=== PATIENT | female | born 1960 | race African-American/Black ===

== ENCOUNTER 2017-03-27 19:03 | Inpatient (IN) ==
[2017-03-27] MEDS ORDERED: VANCOMYCIN INJ 1,000 MG in SODIUM CHLORIDE 0.9% 250 ML IV STA (20:07)
[2017-03-27] MEDS ORDERED: ONDANSETRON 4 MG/2 ML VIAL IV STA (20:07)
[2017-03-27] MEDS ORDERED: SODIUM CHLORIDE 0.9% 500 ML IV STA (20:07)
[2017-03-27] MEDS ORDERED: methylPREDNISolone SOD SUC 125 MG/2 ML VIAL IV STA (20:07)
[2017-03-27] MEDS ORDERED: PIPERACILLIN/TAZOBACTAM 3,375 MG in SODIUM CHLORIDE 0.9% 100 ML IV STA (20:07)
[2017-03-27 20:11] LABS: Basophils % 0.1 % (0.0-0.8); Eosinophils # 0.1 10*3/uL (0.0-0.87); Eosinophils % 0.3 % (0.00-10.9); Hematocrit 27.3 VOL% (35.7-47.0); Hemoglobin 8.5 GM/DL (12.0-16.0); Immature Granulocytes % 0.8 %; Immature Granulocytes Absolute 0.18 #; Lymphocytes # 1.5 10*3/uL (1.4-4.0); Lymphocytes % 6.3 % (21.3-54.2); Mean Corpuscular HGB Conc 31.1 GM/DL (32-36); Mean Corpuscular Hemoglobin 29 PG (27-34); Mean Corpuscular Volume 93.2 FL (87-102); Mean Platelet Volume 9.9 FL (9.6-12.0); Monocytes # 1.4 10*3/uL (0.11-0.8); Monocytes % 5.9 % (1.7-12.7); Neutrophils # 20.4 10*3/uL (1.4-7.4); Neutrophils % 86.6 % (38.7-73.9); Platelet Count 339 T/CUMM (130-400); Red Blood Count 2.93 MC/CUMM (3.8-5.5); White Blood Count 23.5 T/CUMM (4-12)
[2017-03-27 20:21] LABS: INR 1.1; PT Patient Result 11.4 SECS; Partial Thromboplastin Time 32.1 SECS (0-40)
[2017-03-27] MEDS ORDERED: ALBUTEROL 2.5 MG/3 ML NEB RESP TX SCH (20:30)
[2017-03-27 20:33] LABS: Lactic Acid 1.1 MMOL/L (0.4-2.0)
--- NOTE | 2017-03-27 20:36 | Emergency Department Note ---
Silvestre Boggs Manpreet, am scribing for, and in the presence of, Jj Dean MD 20:18. Jermaine Boggs Charles R, MD, personally performed the services described in this documentation, ascribed by Tyler Rivers in my presence, and it is both accurate and complete . Arrival - Arrival Chief Complaint: Shortness of Breath Stated Complaint: sob ED Nursing Triage Note: [facility] O2 SATS AND DRAINAGE FROM TRACH. PT NOTED TO HAVE CONGESTION AND COUGH. SHELTER REPORT STATES SYMPTOMS STARTED TODAY. DENIES ANY FEVER. PT UNABLE TO RESPOND TO QUESTIONS. NO ACUTE DISTRESS NOTED AT TIME OF TRIAGE. Mode of Arrival: Stretcher Source: Family, EMS, Old Records Reviewed, RN Notes Reviewed - History of Present Illness HPI Narrative: Pt is a 57 y/o male with PMHx of HTN, CVA, IDDM, and NIDDM, who [facility]B since earlier today. Pt was noted as having congestion and cough along with the SOB per [place]. Pts primary historian is her son, who says she was just admitted to the [facility] yesterday. Pt was previously seen for PNA and had aspirated according to the son. No other complaints/pains reported to ED. Onset (ago): hour(s) Consistency: constant Severity: moderate Allergies/Adverse Reactions: Allergies Allergy/AdvReac Type Severity Reaction Status Date / Time No Known Allergies Allergy Unverified 06/17/16 20:35 Home Medications: Home Medications Medication Instructions Recorded Confirmed Type Aspirin Chew Tab 81 mg PEG DAILY 03/27/17 03/27/17 History Fluconazole Tab [Diflucan Tab] 100 mg PEG DAILY 03/27/17 03/27/17 History Insulin Glargine [Lantus] 28 unit SUBCUT BEDTIME 03/27/17 03/27/17 History Insulin Lispro [HumaLOG] 0 unit SUBCUT ACHS 03/27/17 03/27/17 History Pantoprazole Tab [Protonix Tab] 40 mg PEG DAILY 03/27/17 03/27/17 History amLODIPine [Norvasc] 5 mg PEG DAILY 03/27/17 03/27/17 History hydrALAZINE TAB [Apresoline Tab] 50 mg PEG TID 03/27/17 03/27/17 History levETIRAcetam [Levetiracetam] 1,000 mg PEG BID 03/27/17 03/27/17 History Review of System - Review of System 12 point system: reviewed and no additional remarkable complaints except as stated - Review of System Constitutional: Absent: chills, diaphoresis, fever Respiratory: Present: cough, respiratory distress Cardiovascular: Absent: chest pain Gastrointestinal: Absent: abdominal pain Musculoskeletal: Absent: arm pain, back pain, lower back pain, neck pain Medical,Surgical,& Family Hx - Medical History Cardio: History of: Hypertension Neurology: History of: Cerebrovascular Accident HEENT: No history of: Ear Problem, Eye Problem, Dental Problems, Glaucoma, Oral Cancer, HEENT Problems Endocrine: History of: Diabetes Mellitus (IDDM), Diabetes Mellitus (NIDDM) Musculoskeletal: No history of: Amputation - Surgical History Thoracic Surgeries: Patient denies;: Organ Transplant HEENT Surgeries: Patient denies: Eye Surgery, Thyroid Surgery, Tonsilectomy & Adenoidectomy Abdominal Surgeries: Patient denies: Abdominal Surgery Reproductive Surgeries: Surgical HX of;: Hysterectomy Patient denies;: Breast Surgery, Section, Dilation and Curettage, Genitourinary Surgery, Gynecologic Surgery, Tubal Ligation Orthopedic Surgeries: Patient denies;: Implanted Devices, Orthopedic Surgery, Spinal Surgery, Total Hip Replacement, Total Knee Replacement - Family History Family History: Reports;: Family Diabetes, Family Hypertension Denies;: Family Anesthesia Reaction, Family Cancer, Family Heart Disease, Family Psychiatric Problems, Family Stroke - Social History Smoking Status: Never smoker Frequency of Alcohol Use: None Type of Drug Use: None Exam Vital Signs: Vital Signs Temperature 98.7 F 03/27/17 19:03 Pulse Rate 107 H 03/27/17 20:27 Respiratory Rate 22 03/27/17 20:27 Blood Pressure 136/75 03/27/17 19:03 O2 Sat by Pulse Oximetry 100 03/27/17 20:27 - General Exam limited due to: ALOC General appearance: obese - Head Head exam: Present: atraumatic - Eye Eye exam: Present: normal appearance, PERRL, EOMI - ENT ENT exam: Present: normal exam - Neck Neck exam: Present: normal inspection, other (Tracheotomy) - Chest Chest inspection: Present: normal inspection, symmetric chest wall rise - Respiratory Respiratory exam: Present: rales, respiratory distress, wheezes. Absent: normal lung sounds bilaterally - Cardiovascular Cardiovascular exam: Present: normal rhythm, tachycardia, normal heart sounds - Abdominal Exam Abdominal exam: Present: distention, diminished bowel sounds, other. Absent: soft, tenderness - Extremities Exam Extremities exam: Absent: full ROM - Neurological Exam Neurological exam: Present: CN II-XII intact, other (Expressive aphasia ). Absent: alert, oriented X3 - Skin Skin exam: Present: warm, dry, intact. Absent: pallor Course - Consultations Consultation #1: Hospitalist will admit patient Time: 21:23 Results - Labs CBC & BMP: 03/27/17 20:04 03/27/17 20:04 Lab Results: I have reviewed the patients labs Labs: Laboratory Tests 03/27/17 03/27/17 03/27/17 20:04 20:04 20:04 WBC 23.5 H RBC 2.93 L Hgb 8.5 L Hct 27.3 L MCV 93.2 MCHC 31.1 L RDW 18.0 H Neut % (Auto) 86.6 H Lymph % (Auto) 6.3 L Neut # (Auto) 20.4 H [place] # (Auto) 1.4 H INR 1.1 PT Patient/Control Mix 11.4 Circ Anticoag PTT 32.1 Lactic Acid 1.1 Laboratory Tests 03/27/17 03/27/17 03/27/17 20:04 20:04 20:04 Sodium 144 Potassium 5.7 H Chloride 107 Carbon Dioxide 28 BUN 48 H Creatinine 1.20 H BUN/Creatinine Ratio 40.00 H Glucose 197 H Calcium 8.1 L Magnesium 2.5 H AST 47 H Alkaline Phosphatase 463 H Troponin I 1.710 H B-Natriuretic Peptide 104 H Albumin 2.0 L Globulin 4.7 H Albumin/Globulin Ratio 0.4 L Critical Care Time Critical Care Time: Yes Total Critical Care Time: 60 Disposition Clinical Impression: Community acquired pneumonia, Aspiration pneumonia, Fever, Renal insufficiency , History of stroke, Tracheostomy mucous plug, Elevated troponin, Hyperkalemia, Anemia, Leukocytosis Case discussed with: patient, patient's family Disposition: Still a Patient Condition: Critical Time of Disposition: 21:24
[2017-03-27 20:51] LABS: Alanine Aminotransferase 43 U/L (13-56); Alkaline Phosphatase 463 U/L (45-117); Aspartate Amino Transferase 47 U/L (0-37); Bilirubin,Total < 0.39 MG/DL (0.2-1.0); Blood Urea Nitrogen 48 MG/DL (7-18); Calcium 8.1 MG/DL (8.5-10.1); Glucose 197 MG/DL (74-106); Magnesium 2.5 MG/DL (1.8-2.4); Osmolality,Calculated 303.8 MOS/KG (273-304); Potassium 5.7 MMOL/L (3.5-5.1); Sodium 144 MMOL/L (136-145); Total Protein 6.7 G/DL (6.4-8.3)
[2017-03-27 20:54] LABS: Troponin I Only 1.71 NG/ML (0.00-0.045)
--- NOTE | 2017-03-27 21:18 | XRay Report ---
Exam: XR chest 1V portable Indication: Decreased oxygen saturations, Shortness of breath Comparison study: 06/17/2016 Findings: Tracheostomy tube is noted in position. The cardiac silhouette is enlarged, similar to prior. There has been development of airspace opacities with air bronchograms within the right upper lung which are most compatible with developing pneumonia. There are also minimal patchy right basilar opacities which may represent atelectasis or additional infectious/inflammatory infiltrates. A trace right pleural effusion is also suspected. There is no pneumothorax. Impression: Development of right upper lobe pneumonia. Minimal right basilar opacities are also noted and may represent additional foci of infectious/inflammatory infiltrates. Trace right pleural effusion. PROCEDURE INTERPRETED AT [facility] DEPARTMENT OF RADIOLOGY Final Report Signed by: Jay Mcbride
[2017-03-27] MEDS ORDERED: CALCIUM CHLORIDE 1,000 MG/10 ML SYRINGE IV STA (21:19)
[2017-03-27] MEDS ORDERED: SODIUM POLYSTYRENE SULFATE 15 GM/60 ML BOTTLE PO STA (21:19)
[2017-03-27 21:25] LABS: ABG Base Excess 2.8 MMOL/L (-2.5-2.5); ABG HCO3 26.9 MMOL/L (20-26); ABG Oxygen Saturation 99.6 % (95-100); ABG PCO2 39.5 MM HG (35-48); ABG PH 7.442 (7.35-7.45); ABG TCO2 24.9 MMOL/L (23-27); Allen Test Positive
[2017-03-27] MEDS ORDERED: methylPREDNISolone SOD SUC 125 MG/2 ML VIAL ONE (21:54)
[2017-03-27] MEDS ORDERED: PIPERACILLIN/TAZOBACTAM 3,375 MG VIAL IV ONE (21:54)
[2017-03-27] MEDS ORDERED: ONDANSETRON 4 MG/2 ML VIAL ONE (21:54)
--- NOTE | 2017-03-27 22:12 | Hospitalist History & Physical ---
Assessment and Plan (1) Aspiration pneumonia Status: Acute Assessment and plan: admit in ICU, continue oxygen vis trac duoneb, frequent suction , start iv vanc and iv zosyn follow sputum c\s and blood c\s consult pulmonary Current Visit: Yes (2) History of stroke Status: Acute Assessment and plan: contiune home meds Current Visit: Yes (3) Hyperkalemia Status: Acute Assessment and plan: iv fluids, kayaxelate , repeat K in am Current Visit: Yes History of Present Illness Chief complaint: SOB , and cough [place] resident History of present illness: Pt is a 57 y/o male with PMHx of HTN, CVA, IDDM, and NIDDM, who is brought to ED from [facility] with CC of SOB since earlier today. Pt was noted as having congestion and cough along with the SOB per [place]. Pts primary historian is her son, who says she was just admitted to the residential yesterday. Pt was previously seen for PNA and had aspirated according to the son. No other complaints/pains reported to ED.hx of old stroke prolong hospitalizations s\p TRAC Home Medications Medication Instructions Recorded Confirmed Type Aspirin Chew Tab 81 mg PEG DAILY 03/27/17 03/27/17 History Fluconazole Tab [Diflucan Tab] 100 mg PEG DAILY 03/27/17 03/27/17 History Insulin Glargine [Lantus] 28 unit SUBCUT BEDTIME 03/27/17 03/27/17 History Insulin Lispro [HumaLOG] 0 unit SUBCUT ACHS 03/27/17 03/27/17 History Pantoprazole Tab [Protonix Tab] 40 mg PEG DAILY 03/27/17 03/27/17 History amLODIPine [Norvasc] 5 mg PEG DAILY 03/27/17 03/27/17 History hydrALAZINE TAB [Apresoline Tab] 50 mg PEG TID 03/27/17 03/27/17 History levETIRAcetam [Levetiracetam] 1,000 mg PEG BID 03/27/17 03/27/17 History Allergies Allergy/AdvReac Type Severity Reaction Status Date / Time No Known Allergies Allergy Unverified 06/17/16 20:35 Medical,Surgical,& Family Hx - Medical History Cardio: History of: Hypertension Neurology: History of: Cerebrovascular Accident HEENT: No history of: Ear Problem, Eye Problem, Dental Problems, Glaucoma, Oral Cancer, HEENT Problems Endocrine: History of: Diabetes Mellitus (IDDM), Diabetes Mellitus (NIDDM) Musculoskeletal: No history of: Amputation - Surgical History Thoracic Surgeries: Patient denies;: Organ Transplant HEENT Surgeries: Patient denies: Eye Surgery, Thyroid Surgery, Tonsilectomy & Adenoidectomy Abdominal Surgeries: Patient denies: Abdominal Surgery Reproductive Surgeries: Surgical HX of;: Hysterectomy Patient denies;: Breast Surgery, Section, Dilation and Curettage, Genitourinary Surgery, Gynecologic Surgery, Tubal Ligation Orthopedic Surgeries: Patient denies;: Implanted Devices, Orthopedic Surgery, Spinal Surgery, Total Hip Replacement, Total Knee Replacement - Family History Family History: Reports;: Family Diabetes, Family Hypertension Denies;: Family Anesthesia Reaction, Family Cancer, Family Heart Disease, Family Psychiatric Problems, Family Stroke - Social History Smoking Status: Never smoker Frequency of Alcohol Use: None Type of Drug Use: None Review of systems: SOB, cough and congestion , rest of 14 point review of system is fine Exam - Constitutional Vitals: Period Temp Pulse Resp BP Sys/Monroe Pulse Ox Last 24 Hr 98.7 F-98.7 F 105-107 22-28 136-136/75-75 96-100 heent, pearle neck, supple. chest decerase breath sounds at both side of lung rt >lt with fine rales cvs, s1 s2. 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
[2017-03-27] MEDS ORDERED: ACETAMINOPHEN 325 MG TABLET PER TUBE PRN (22:23)
[2017-03-27] MEDS ORDERED: ONDANSETRON 4 MG/2 ML VIAL IV PRN (22:23)
[2017-03-27] MEDS ORDERED: VANCOMYCIN INJ 2,000 MG in SODIUM CHLORIDE 0.9% 500 ML IV ONE (22:30)
[2017-03-27] MEDS ORDERED: DEXTROSE 50% 25 GM/50 ML VIAL IV PRN (22:33)
[2017-03-27] MEDS ORDERED: GLUCAGON 1 MG VIAL IM PRN (22:33)
[2017-03-27] MEDS ORDERED: CALCIUM CHLORIDE 1,000 MG in SODIUM CHLORIDE 0.9% 100 ML IV SCH (23:00)
[2017-03-27] MEDS ORDERED: CALCIUM CHLORIDE 1,000 MG/10 ML SYRINGE IV ONE (23:30)
[2017-03-27] MEDS ORDERED: SODIUM POLYSTYRENE SULFATE 15 GM/60 ML BOTTLE PO ONE (23:30)
[2017-03-27] MEDS: ALBUTEROL/IPRATROPIUM 3 ML NEB RESP TX SCH (23:57)
[2017-03-27] MEDS: SODIUM CHLORIDE 0.9% 1,000 ML IV SCH (23:57)
[2017-03-28] MEDS: ENOXAPARIN 40 MG/0.4 ML SYRINGE SUBCUT SCH ×2 (00:04→23:21)
[2017-03-28 00:10] LABS: Apearance,Urine CLEAR (Clear); Bilirubin,Urine Negative (Negative); Blood, Urine Negative (Negative); Glucose,Urine (UA) Negative (Negative); Ketones,Urine Negative (Negative); Mucus,Urine Occasional /LPF (Occasional); Nitrite,Urine Negative (Negative); Protein,Urine 30 MG/DL; RBC,Urine <1 /HPF (0-4); Squamous Epithelial Cell,Urine Occasional /HPF (0-10); Urine Color Yellow (Yellow); Urine Specific Gravity 1.012 (1.001-1.035); Urine Urobilinogen < 2.0 EU/DL (0.2-1.0); WBC,Urine 1 /HPF (0-6)
[2017-03-28] MEDS: ALBUTEROL/IPRATROPIUM 3 ML NEB RESP TX SCH ×6 (03:49→23:52)
[2017-03-28 06:08] LABS: Basophils % 0.1 % (0.0-0.8); Hematocrit 26.6 VOL% (35.7-47.0); Hemoglobin 8.1 GM/DL (12.0-16.0); Immature Granulocytes % 1.5 %; Immature Granulocytes Absolute 0.27 #; Lymphocytes % 5.5 % (21.3-54.2); Mean Corpuscular HGB Conc 30.5 GM/DL (32-36); Mean Corpuscular Hemoglobin 29 PG (27-34); Mean Platelet Volume 10.5 FL (9.6-12.0); Monocytes # 0.3 10*3/uL (0.11-0.8); Monocytes % 1.5 % (1.7-12.7); Neutrophils % 91.4 % (38.7-73.9); Platelet Count 305 T/CUMM (130-400); Red Blood Count 2.77 MC/CUMM (3.8-5.5); Red Cell Distribution Width 17.5 % (9.3-17.3); White Blood Count 18.6 T/CUMM (4-12)
[2017-03-28 06:36] LABS: Hypochromasia 1+; Lymphocytes 7 % (20-55); Segmented Neutrophils 92 % (50-85); Total Cells Counted 100
[2017-03-28 06:37] LABS: Anisocytosis 1+; Microcytosis 1+; Platelet Estimate Normal
[2017-03-28 06:38] LABS: Osmolality,Calculated 309.8 MOS/KG (273-304); Potassium 5.7 MMOL/L (3.5-5.1)
[2017-03-28] MEDS ORDERED: INSULIN REGULAR 100 UNIT/ML SUBCUT SCH (07:30)
--- NOTE | 2017-03-28 09:16 | EKG Report ---
Stationary ECG Study [facility] Test Date: 03/27/2017 7:13:04 PM Pat Name: AL LOERA Department: Room: 118 Gender: F Ssis Ssrs Developer: : 1960 Requested by: Jj Vega Order Number: [id number] Slick MD: MARY BETH ROMO Intervals [place] Rate: 116 P: 53 MI: 135 QRS: 24 QRSD: 81 T: 42 QT: 309 QTc: 378 Interpretive Statements SINUS TACHYCARDIA EARLY R TRANSITION Electronically Signed On 03-28-17 19:16:42 CDT by MARY BETH ROMO [email or web address]
--- NOTE | 2017-03-28 09:16 | EKG Report ---
Stationary ECG Study [facility] Test Date: 03/27/2017 9:04:31 PM Pat Name: AL LOERA Department: Room: 118 Gender: F Pay Clerk: ANGELA : 1960 Requested by: Jj Vega Order Number: [id number] Reading MD: MARY BETH ROMO Intervals [place] Rate: 112 P: 50 VT: 136 QRS: 23 QRSD: 90 T: 47 QT: 308 QTc: 374 Interpretive Statements SINUS TACHYCARDIA Electronically Signed On 03-28-17 19:29:53 CDT by MARY BETH ROMO [email or web address]
--- NOTE | 2017-03-28 09:18 | EKG Report ---
Stationary ECG Study [facility] Test Date: 03/27/2017 9:11:32 PM Pat Name: AL LOERA Department: Room: 118 Gender: F Coding Advisor: ANGELA : 1960 Requested by: Jj Vega Order Number: [id number] Slick MD: MARY BETH ROMO Intervals [place] Rate: 116 P: 48 PA: 127 QRS: 23 QRSD: 87 T: 48 QT: 305 QTc: 374 Interpretive Statements SINUS TACHYCARDIA Electronically Signed On 03-28-17 19:30:28 CDT by MARY BETH ROMO [email or web address]
[2017-03-28] MEDS: PIPERACILLIN/TAZOBACTAM 3,375 MG in SODIUM CHLORIDE 0.9% 100 ML IV SCH ×2 (09:47→16:25)
[2017-03-28] MEDS: INSULIN REGULAR 100 UNIT/ML SUBCUT SCH ×4 (09:47→21:50)
[2017-03-28] MEDS: levETIRAcetam 500 MG TABLET PEG SCH ×2 (09:48→21:52)
[2017-03-28] MEDS: amLODIPine 5 MG TABLET PEG SCH (09:48)
[2017-03-28] MEDS: FLUCONAZOLE 100 MG TABLET PEG SCH (09:48)
[2017-03-28] MEDS: PANTOPRAZOLE 40 MG TABLET PO SCH (09:49)
--- NOTE | 2017-03-28 12:22 | Hospitalist Progress Note ---
Assessment and Plan (1) Aspiration pneumonia Status: Acute Assessment and plan: The patient continues with treatment for aspiration including antibiotics and repositioning and suctioning. The patient is improved from admission and is ready for transfer to the floor. Current Visit: Yes Qualifiers: Aspiration pneumonia type: due to gastric secretions Laterality: bilateral Lung location: lower lobe of lung Qualified Code(s): J69.0 - Pneumonitis due to inhalation of food and vomit (2) History of stroke Status: Chronic Current Visit: Yes (3) History of hypertension Status: Acute Current Visit: No Hospitalist: Subjective Interval history: This is a 57-year-old lady with previous stroke and PEG tube. The patient had aspiration of [facility] tube feedings at the [facility] yesterday and was noted to have coughing from trach with PEG tube feeding. The patient was admitted to intensive care unit has been hemodynamically stable. The tracheal aspirate has thinned and no longer has debris. The patient is breathing comfortably with stable neurologic deficits at baseline. Exam - Constitutional Vitals: Period Temp Pulse Resp BP Sys/Monroe Pulse Ox Last 24 Hr 97.1 F-98.3 F 73-115 16-25 108-145/70-95 100-100 Exam: Constitutional System: [Mild] distress. [No] tremulousness. The patient has tracheostomy and PEG tube. The patient has some flexion contractures and requires eccentric positioning Head: Normocephalic, atraumatic. Ears, Nose and Throat System: No evidence of Otitis or Mastoiditis. No epistaxis or discharge Eyes System: Pupils equal, round, and reactive. Extraocular muscles intact. Neck: Supple, without adenopathy, [No] jugular venous distention. No thyromegaly, neck mass; tracheostomy functional Respiratory System: Chest [clear] to auscultation. Cardiovascular System: Heart with [regular] rate and rhythm. [No] murmur. GI System: Abdomen [soft], [non]tender. [Normo]active bowel sounds present. Musculoskeletal System: limbs with trace pedal edema. [Full] distal pulses. Results - Labs CBC & BMP: 03/28/17 05:24 03/28/17 05:24 Lab Results: I have reviewed the past 24 hour labs
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
[2017-03-28] MEDS: VANCOMYCIN INJ 1,750 MG in SODIUM CHLORIDE 0.9% 500 ML IV SCH ×2 (13:28→23:46)
[2017-03-28] MEDS ORDERED: INSULIN GLARGINE 100 UNIT/ML SUBCUT SCH (21:00)
[2017-03-28] MEDS: SODIUM CHLORIDE 0.9% 1,000 ML IV SCH ×3 (21:49→22:48)
[2017-03-29] MEDS: PIPERACILLIN/TAZOBACTAM 3,375 MG in SODIUM CHLORIDE 0.9% 100 ML IV SCH ×4 (02:35→23:13)
[2017-03-29] MEDS: ALBUTEROL/IPRATROPIUM 3 ML NEB RESP TX SCH ×5 (03:38→19:05)
[2017-03-29 05:28] LABS: Basophils % 0.1 % (0.0-0.8); Eosinophils # 0.1 10*3/uL (0.0-0.87); Eosinophils % 0.5 % (0.00-10.9); Hemoglobin 7.5 GM/DL (12.0-16.0); Immature Granulocytes % 0.7 %; Immature Granulocytes Absolute 0.08 #; Lymphocytes # 2.2 10*3/uL (1.4-4.0); Mean Corpuscular Hemoglobin 28 PG (27-34); Mean Corpuscular Volume 94.3 FL (87-102); Mean Platelet Volume 10.7 FL (9.6-12.0); Monocytes # 1.1 10*3/uL (0.11-0.8); Monocytes % 10.5 % (1.7-12.7); Neutrophils # 7.4 10*3/uL (1.4-7.4); Neutrophils % 68.2 % (38.7-73.9); Platelet Count 275 T/CUMM (130-400); Red Blood Count 2.65 MC/CUMM (3.8-5.5); Red Cell Distribution Width 17.4 % (9.3-17.3); White Blood Count 10.8 T/CUMM (4-12)
[2017-03-29 06:19] LABS: Calcium 8.7 MG/DL (8.5-10.1); Magnesium 2.7 MG/DL (1.8-2.4); Osmolality,Calculated 304.4 MOS/KG (273-304); Potassium 4.1 MMOL/L (3.5-5.1)
[2017-03-29] MEDS: SODIUM CHLORIDE 0.9% 1,000 ML IV SCH (06:46)
--- NOTE | 2017-03-29 09:22 | XRay Report ---
Referring Physician: Willam Martinez Exam: XR chest 1V portable Date: March 29, 2017 at 6:00 AM Reason: Congestion of the lungs Comparison: Chest one view portable March 27, 2017 Findings: A tracheostomy catheter is again in place. The cardiac silhouette is again enlarged. There are scattered opacities within both lungs. This is concerning for pneumonia, but there could also be superimposed pulmonary edema or scarring. No pneumothorax is identified, but minimal right pleural fluid is suspected. The osseous structures appear stable. Impression: There is improved aeration of the right lung, but there are persistent scattered pulmonary opacities bilaterally. This is concerning for pneumonia, but there could also be pulmonary edema or scarring. PROCEDURE INTERPRETED AT [facility] DEPARTMENT OF RADIOLOGY Final Report Signed by: Dr. Mary Mckenzie
[2017-03-29] MEDS: INSULIN REGULAR 100 UNIT/ML SUBCUT SCH ×4 (09:31→20:58)
[2017-03-29] MEDS: levETIRAcetam 500 MG TABLET PEG SCH ×2 (09:32→20:34)
[2017-03-29] MEDS: amLODIPine 5 MG TABLET PEG SCH (09:32)
[2017-03-29] MEDS: FLUCONAZOLE 100 MG TABLET PEG SCH (09:32)
[2017-03-29] MEDS: PANTOPRAZOLE 40 MG TABLET PO SCH (09:32)
--- NOTE | 2017-03-29 09:39 | Pulmonology Progress Note ---
Pulmonary - PN: Subj Interval history: Patient is a 57-year-old black lady that is a [place] place that has had previous CVAs. She is bedridden and very debilitated. She has a tracheostomy tube in place and is getting PEG feedings. She had some cough and congestion but is better now. She looks like she is comfortable on trach collar. Vital signs have been stable and her chest x-ray looks okay. She appears to be reasonably stable. Exam (Progress Note) - Constitutional Vitals: Period Temp Pulse Resp BP Sys/Monroe Pulse Ox Last 24 Hr 97.0 F-99.8 F 68-86 15-20 103-144/60-81 97-100 Exam: General appearance: no distress, over weight, other (She is reasonably comfortable on trach collar. She does not appear to be in any distress now.) - Head Head exam: Present: normal inspection, normocephalic - Eye Eye exam: Present: EOMI. Absent: scleral icterus Pupils: Present: MELISSA - ENT ENT exam: Present: normal exam - Neck Neck exam: Present: other (She has a tracheostomy tube in place). Absent: lymphadenopathy, thyromegaly - Respiratory Respiratory exam: Present: She has good breath sounds bilaterally with just minimal rhonchi now. - Cardiovascular Cardiovascular exam: Present: regular rate and rhythm. Absent: gallop, systolic murmur - GI/Abdominal GI/Abdominal exam: Present: normal bowel sounds, soft, other (She has a PEG tube in place.). Absent: organomegaly, tenderness - Extremities Exam Extremities exam: Absent: calf tenderness, edema - Neurological Exam Neurological exam: Present: altered (She cannot communicate) - Psychiatric Psychiatric exam: Absent: anxious - Skin Skin exam: Present: warm, dry Results - Labs CBC & BMP: 03/29/17 04:42 03/29/17 04:42 - Diagnostic Findings Procedure: Chest x-ray: image reviewed by me, report reviewed by me (Chest x- ray looks reasonably clear.) Assessment and Plan (1) Insulin dependent diabetes mellitus Status: Chronic Assessment and plan: The patient does have diabetes and her glucose is better today at 170. Current Visit: No (2) History of stroke Status: Chronic Assessment and plan: The patient is quite debilitated after her stroke and has a tracheostomy tube in place. She is completely obtunded. Current Visit: Yes (3) History of hypertension Status: Acute Assessment and plan: Her blood pressure stable at present. Current Visit: No (4) Aspiration pneumonia Status: Acute Assessment and plan: The patient has some right lower lobe infiltrate and may have some pneumonia. She seems to be breathing comfortably at present. Her chest x-ray is better she is not having any distress now. She does have some gram-negative rods from her tracheal secretions. Current Visit: Yes Qualifiers: Aspiration pneumonia type: due to gastric secretions Laterality: bilateral Lung location: lower lobe of lung Qualified Code(s): J69.0 - Pneumonitis due to inhalation of food and vomit
--- NOTE | 2017-03-29 12:19 | Hospitalist Progress Note ---
Assessment and Plan (1) Aspiration pneumonia Status: Acute Assessment and plan: Continue vancomycin and zosyn for now Current Visit: Yes Qualifiers: Aspiration pneumonia type: due to gastric secretions Laterality: bilateral Lung location: lower lobe of lung Qualified Code(s): J69.0 - Pneumonitis due to inhalation of food and vomit Hospitalist: Subjective Interval history: No acute events overnight. She is doing well. Tube feeds have not yet been restarted due to concern of aspiration pneumonia. Will restart slowly today. Exam - Constitutional Vitals: Period Temp Pulse Resp BP Sys/Monroe Pulse Ox Last 24 Hr 97.0 F-99.8 F 68-80 15-20 103-144/60-81 97-100 General appearance: normal weight - Head Head exam: Present: normocephalic, atraumatic - Eye Eye exam: Present: EOMI Pupils: Present: MELISSA - ENT ENT exam: Present: normal exam - Neck Neck exam: Present: normal inspection - Respiratory Respiratory exam: Present: clear to auscultation bilaterally. Absent: rhonchi, wheezes - Cardiovascular Cardiovascular exam: Present: regular rate and rhythm - GI/Abdominal GI/Abdominal exam: Present: normal bowel sounds, soft. Absent: tenderness, rebound - Extremities Exam Extremities exam: Present: normal inspection - Back Exam Back exam: Present: normal inspection - Neurological Exam Neurological exam: Present: other (unresponsive) - Skin Skin exam: Present: warm, intact Results - Labs CBC & BMP: 03/29/17 04:42 03/29/17 04:42
[2017-03-29] MEDS: VANCOMYCIN INJ 1,750 MG in SODIUM CHLORIDE 0.9% 500 ML IV SCH (12:50)
[2017-03-29] MEDS: ENOXAPARIN 40 MG/0.4 ML SYRINGE SUBCUT SCH (23:03)
[2017-03-30] MEDS: ALBUTEROL/IPRATROPIUM 3 ML NEB RESP TX SCH ×7 (00:31→23:48)
[2017-03-30 06:52] LABS: Basophils % 0.1 % (0.0-0.8); Eosinophils # 0.2 10*3/uL (0.0-0.87); Hematocrit 24.8 VOL% (35.7-47.0); Hemoglobin 7.5 GM/DL (12.0-16.0); Immature Granulocytes % 0.6 %; Immature Granulocytes Absolute 0.05 #; Lymphocytes # 1.4 10*3/uL (1.4-4.0); Mean Corpuscular HGB Conc 30.2 GM/DL (32-36); Mean Corpuscular Hemoglobin 28 PG (27-34); Mean Corpuscular Volume 93.6 FL (87-102); Mean Platelet Volume 10.8 FL (9.6-12.0); Monocytes # 0.8 10*3/uL (0.11-0.8); Monocytes % 10.2 % (1.7-12.7); Neutrophils # 5.6 10*3/uL (1.4-7.4); Neutrophils % 70.1 % (38.7-73.9); Platelet Count 300 T/CUMM (130-400); Red Blood Count 2.65 MC/CUMM (3.8-5.5); Red Cell Distribution Width 17.3 % (9.3-17.3)
[2017-03-30 07:30] LABS: Calcium 8.9 MG/DL (8.5-10.1); Magnesium 2.6 MG/DL (1.8-2.4); Potassium 3.8 MMOL/L (3.5-5.1)
[2017-03-30] MEDS: INSULIN REGULAR 100 UNIT/ML SUBCUT SCH ×4 (08:32→21:42)
[2017-03-30] MEDS: PIPERACILLIN/TAZOBACTAM 3,375 MG in SODIUM CHLORIDE 0.9% 100 ML IV SCH ×2 (08:37→16:10)
[2017-03-30] MEDS: levETIRAcetam 500 MG TABLET PEG SCH ×2 (08:43→21:42)
[2017-03-30] MEDS: amLODIPine 5 MG TABLET PEG SCH (08:43)
[2017-03-30] MEDS: PANTOPRAZOLE 40 MG TABLET PO SCH (08:43)
[2017-03-30] MEDS: FLUCONAZOLE 100 MG TABLET PEG SCH (08:44)
--- NOTE | 2017-03-30 09:33 | Pulmonology Progress Note ---
Pulmonary - PN: Subj Interval history: Patient is a 57-year-old black lady that is a alf place that has had previous CVAs. She is bedridden and very debilitated. She has a tracheostomy tube in place and is getting PEG feedings. She has had no respiratory distress now. Her cough is better and she seems to be breathing comfortably on trach collar. Her tube feedings are being restarted. Overall she looks reasonably stable. Exam (Progress Note) - Constitutional Vitals: Period Temp Pulse Resp BP Sys/Monroe Pulse Ox Last 24 Hr 96.2 F-97.9 F 70-87 18-20 108-154/56-88 100-100 Exam: General appearance: no distress, over weight, other (She is reasonably comfortable on trach collar. She does not appear to be in any distress now.) - Head Head exam: Present: normal inspection, normocephalic - Eye Eye exam: Present: EOMI. Absent: scleral icterus Pupils: Present: MELISSA - ENT ENT exam: Present: normal exam - Neck Neck exam: Present: other (She has a tracheostomy tube in place). Absent: lymphadenopathy, thyromegaly - Respiratory Respiratory exam: Present: She has good breath sounds bilaterally with just minimal rhonchi now. She is moving air okay. - Cardiovascular Cardiovascular exam: Present: regular rate and rhythm. Absent: gallop, systolic murmur - GI/Abdominal GI/Abdominal exam: Present: normal bowel sounds, soft, other (She has a PEG tube in place.). Absent: organomegaly, tenderness - Extremities Exam Extremities exam: Absent: calf tenderness, edema - Neurological Exam Neurological exam: Present: altered (She cannot communicate) she is bedridden. - Psychiatric Psychiatric exam: Absent: anxious - Skin Skin exam: Present: warm, dry Results - Labs CBC & BMP: 03/30/17 06:27 03/30/17 06:27 Assessment and Plan (1) Insulin dependent diabetes mellitus Status: Chronic Assessment and plan: The patient does have diabetes and her glucose is better today at 129. Current Visit: No (2) History of stroke Status: Chronic Assessment and plan: The patient is quite debilitated after her stroke and has a tracheostomy tube in place. She is completely obtunded. She cannot follow any commands. Current Visit: Yes (3) History of hypertension Status: Acute Assessment and plan: Her blood pressure stable at present. Current Visit: No (4) Aspiration pneumonia Status: Acute Assessment and plan: The patient has some right lower lobe infiltrate and may have some pneumonia. She seems to be breathing comfortably at present. She has not had any fever and congestion is better. Her chest x-ray looks better. She is getting antibiotics. Current Visit: Yes Qualifiers: Aspiration pneumonia type: due to gastric secretions Laterality: bilateral Lung location: lower lobe of lung Qualified Code(s): J69.0 - Pneumonitis due to inhalation of food and vomit
--- NOTE | 2017-03-30 12:43 | Hospitalist Progress Note ---
Assessment and Plan (1) Aspiration pneumonia Status: Acute Assessment and plan: Continue vancomycin and zosyn for now Will restart tube feeds today Current Visit: Yes Qualifiers: Aspiration pneumonia type: due to gastric secretions Laterality: bilateral Lung location: lower lobe of lung Qualified Code(s): J69.0 - Pneumonitis due to inhalation of food and vomit Hospitalist: Subjective Interval history: No acute events overnight. Patient looks ok today. Will restart tube feeds. Still on empiric antibiotics for aspiration pneumonia. Exam - Constitutional Vitals: Period Temp Pulse Resp BP Sys/Monroe Pulse Ox Last 24 Hr 96.2 F-97.9 F 70-87 18-20 108-154/56-88 97-100 General appearance: normal weight - Head Head exam: Present: normocephalic, atraumatic - Eye Eye exam: Present: EOMI Pupils: Present: MELISSA - ENT ENT exam: Present: normal exam - Neck Neck exam: Present: normal inspection - Respiratory Respiratory exam: Present: clear to auscultation bilaterally. Absent: rhonchi, wheezes - Cardiovascular Cardiovascular exam: Present: regular rate and rhythm - GI/Abdominal GI/Abdominal exam: Present: normal bowel sounds, soft. Absent: tenderness, rebound - Extremities Exam Extremities exam: Present: normal inspection - Back Exam Back exam: Present: normal inspection - Neurological Exam Neurological exam: Present: alert - Skin Skin exam: Present: warm, intact Results - Labs CBC & BMP: 03/30/17 06:27 03/30/17 06:27
[2017-03-30] MEDS: ENOXAPARIN 40 MG/0.4 ML SYRINGE SUBCUT SCH (21:42)
[2017-03-31] MEDS: PIPERACILLIN/TAZOBACTAM 3,375 MG in SODIUM CHLORIDE 0.9% 100 ML IV SCH ×2 (01:39→09:05)
[2017-03-31] MEDS: ALBUTEROL/IPRATROPIUM 3 ML NEB RESP TX SCH ×4 (03:45→14:13)
[2017-03-31 07:46] LABS: Basophils % 0.1 % (0.0-0.8); Eosinophils % 0.5 % (0.00-10.9); Hematocrit 23.8 VOL% (35.7-47.0); Hemoglobin 7.4 GM/DL (12.0-16.0); Immature Granulocytes % 0.5 %; Immature Granulocytes Absolute 0.04 #; Lymphocytes # 1.2 10*3/uL (1.4-4.0); Lymphocytes % 14.6 % (21.3-54.2); Mean Corpuscular HGB Conc 31.1 GM/DL (32-36); Mean Corpuscular Hemoglobin 29 PG (27-34); Mean Corpuscular Volume 92.6 FL (87-102); Mean Platelet Volume 11.5 FL (9.6-12.0); Monocytes # 0.7 10*3/uL (0.11-0.8); Monocytes % 8.8 % (1.7-12.7); Neutrophils # 6.3 10*3/uL (1.4-7.4); Neutrophils % 75.5 % (38.7-73.9); Platelet Count 304 T/CUMM (130-400); Red Blood Count 2.57 MC/CUMM (3.8-5.5); Red Cell Distribution Width 17.3 % (9.3-17.3); White Blood Count 8.3 T/CUMM (4-12)
[2017-03-31 08:13] LABS: Calcium 8.6 MG/DL (8.5-10.1); Magnesium 2.5 MG/DL (1.8-2.4)
[2017-03-31] MEDS ORDERED: hydrALAZINE 25 MG TABLET ONE (08:15)
[2017-03-31] MEDS: INSULIN REGULAR 100 UNIT/ML SUBCUT SCH ×2 (09:04→11:43)
[2017-03-31] MEDS: FLUCONAZOLE 100 MG TABLET PEG SCH (09:14)
[2017-03-31] MEDS: amLODIPine 5 MG TABLET PEG SCH (09:15)
[2017-03-31] MEDS: levETIRAcetam 500 MG TABLET PEG SCH (09:15)
[2017-03-31] MEDS: PANTOPRAZOLE 40 MG TABLET PO SCH (09:15)
[2017-03-31] MEDS ORDERED: VANCOMYCIN INJ 1,750 MG in SODIUM CHLORIDE 0.9% 500 ML IV SCH (10:00)
[2017-03-31] MEDS ORDERED: SCOPOLAMINE 1.5 MG PATCH TRANSDERM SCH (11:00)
[2017-03-31 11:40] VITALS: BP 128/79
--- NOTE | 2017-03-31 12:04 | Discharge Summary ---
Hospital Course - Hospital Course Hospital Course: Pt is a 57 y/o male with PMHx of HTN, CVA, IDDM, and NIDDM, who is brought to ED from [facility] with complaint of SOB since earlier that day. Pt was noted as having congestion and cough along with the SOB per [facility]. Pts primary historian is her son, who says she was just admitted to the care home the day prior. Pt was previously seen for PNA and had aspirated according to the son. No other complaints/pains reported to ED.hx of old stroke prolong hospitalizations s\p TRAC. Patient was admitted to the hospitalist service for aspiration. She was admitted to the ICU for close monitoring. She was started on broad spectrum antibiotics for aspiration pneumonia. Pulmonary was consulted for assistance. She did well overnight and was transferred to a regular floor. Tube feeds were restarted without incident. Sputum cultures grew Acinetobacter baumannii/ haemolyticus. She has now reached maximum benefit of inpatient stay and will be discharged back to the care home. - Time spent with patient Time with patient DS: Less than 30 minutes Diagnosis - Discharge Diagnosis (1) Aspiration pneumonia Status: Resolved Discharge Plan - Discharge Data Disposition: Disch/Xfer to Snf Condition at Discharge: Stable Discharge Diet: advance to your usual diet - Discharge Medications New Levofloxacin Tab [Levaquin Tab] 500 mg PO DAILY #4 tablet Scopolamine 1.5 mg Patch [Transderm Scop 1.5 mg/72 hr Patch] 1 patch TRANSDERM Q3DAY #10 patch Continue Pantoprazole Tab [Protonix Tab] 40 mg PEG DAILY levETIRAcetam [Levetiracetam] 1,000 mg PEG BID Insulin Glargine [Lantus] 28 unit SUBCUT BEDTIME Fluconazole Tab [Diflucan Tab] 100 mg PEG DAILY amLODIPine [Norvasc] 5 mg PEG DAILY Insulin Lispro [HumaLOG] 0 unit SUBCUT ACHS hydrALAZINE TAB [Apresoline Tab] 50 mg PEG TID Aspirin Chew Tab 81 mg PEG DAILY - Follow Up or Referral - Forms/Instructions Exam - Constitutional Vitals: Period Temp Pulse Resp BP Sys/Monroe Pulse Ox Last 24 Hr 96.9 F-98.1 F 81-96 18-21 114-147/60-88 95-100 General appearance: normal weight - Head Head exam: Present: normocephalic, atraumatic - Eye Eye exam: Present: EOMI Pupils: Present: MELISSA - ENT ENT exam: Present: normal exam - Neck Neck exam: Present: normal inspection - Respiratory Respiratory exam: Present: clear to auscultation bilaterally. Absent: wheezes - Cardiovascular Cardiovascular exam: Present: regular rate and rhythm - GI/Abdominal GI/Abdominal exam: Present: normal bowel sounds, soft. Absent: tenderness, rebound - Extremities Exam Extremities exam: Present: normal inspection - Back Exam Back exam: Present: normal inspection - Neurological Exam Neurological exam: Present: other (unresponsive) - Skin Skin exam: Present: warm, intact Discharge Results Procedures and tests throughout hospitalization: Pending Orders 04/01/17 04:00 Basic Metabolic Panel IN AM Phosphorous IN AM 04/03/17 04:00 Basic Metabolic Panel MOTH Magnesium MOTH Prealbumin MOTH Labs on day of discharge: Labs from last 24 hours 03/31/17 03/31/17 03/31/17 11:02 07:17 05:13 WBC RBC Hgb Hct MCV MCH MCHC RDW Plt Count MPV Neut % (Auto) Lymph % (Auto) [place] % (Auto) Eos % (Auto) Baso % (Auto) Neut # (Auto) Lymph # (Auto) [place] # (Auto) Eos # (Auto) Baso # (Auto) Immature Gran % Nucleated RBC % Immature Gran # Nucleated RBCs # Sodium Potassium Chloride Carbon Dioxide Anion Gap BUN Creatinine GFR Calculation BUN/Creatinine Ratio Glucose POC Glucose 178 H 174 H Calculated Osmolality Calcium Magnesium Random Vancomycin 20.2 03/31/17 03/31/17 03/30/17 05:13 05:13 19:37 WBC 8.3 RBC 2.57 L Hgb 7.4 L Hct 23.8 L MCV 92.6 MCH 29 MCHC 31.1 L RDW 17.3 Plt Count 304 MPV 11.5 Neut % (Auto) 75.5 H Lymph % (Auto) 14.6 L [place] % (Auto) 8.8 Eos % (Auto) 0.5 Baso % (Auto) 0.1 Neut # (Auto) 6.3 Lymph # (Auto) 1.2 L [place] # (Auto) 0.7 Eos # (Auto) 0.0 Baso # (Auto) 0.0 Immature Gran % 0.5 Nucleated RBC % 0.0 Immature Gran # 0.04 Nucleated RBCs # 0.00 Sodium 150 H Potassium 4.0 Chloride 114 H Carbon Dioxide 28 Anion Gap 12.0 BUN 25 H Creatinine 0.80 GFR Calculation 122 BUN/Creatinine Ratio 31.00 H Glucose 173 H POC Glucose 150 H Calculated Osmolality 305.0 H Calcium 8.6 Magnesium 2.5 H Random Vancomycin 03/30/17 03/30/17 16:16 11:20 WBC RBC Hgb Hct MCV MCH MCHC RDW Plt Count MPV Neut % (Auto) Lymph % (Auto) [place] % (Auto) Eos % (Auto) Baso % (Auto) Neut # (Auto) Lymph # (Auto) [place] # (Auto) Eos # (Auto) Baso # (Auto) Immature Gran % Nucleated RBC % Immature Gran # Nucleated RBCs # Sodium Potassium Chloride Carbon Dioxide Anion Gap BUN Creatinine GFR Calculation BUN/Creatinine Ratio Glucose POC Glucose 145 H 130 H Calculated Osmolality Calcium Magnesium Random Vancomycin DS: Provider Date of admission: 03/27/17 22:23 Primary care physician: . No PCP Attending physician on admission: Ewa Martinez MD Consults: 03/28/17 00:34 Consult to Dietitian [CONS] Routine Reason for Dietitian: Other 03/30/17 12:27 Consult to Dietitian [CONS] Routine Reason for Dietitian: TF-Initiate/Manage Discharging clinician: Oh Mendoza MD
--- NOTE | 2017-03-31 12:26 | Pulmonology Progress Note ---
Pulmonary - PN: Subj Interval history: Patient is a 57-year-old black lady that is a group home place that has had previous CVAs. She is bedridden and very debilitated. She has a tracheostomy tube in place and is getting PEG feedings. She has had no respiratory distress now. Her cough is better and she seems to be breathing comfortably on trach collar. Her tube feedings are being restarted. She had a fairly quiet night and seems to be breathing better. She is not having any respiratory distress now. She is going back to the group home today. Exam (Progress Note) - Constitutional Vitals: Period Temp Pulse Resp BP Sys/Monroe Pulse Ox Last 24 Hr 96.9 F-98.1 F 81-96 18-21 114-147/60-88 95-100 Exam: General appearance: no distress, over weight, other (She is reasonably comfortable on trach collar. She does not appear to be in any distress now.) - Head Head exam: Present: normal inspection, normocephalic - Eye Eye exam: Present: EOMI. Absent: scleral icterus Pupils: Present: MELISSA - ENT ENT exam: Present: normal exam - Neck Neck exam: Present: other (She has a tracheostomy tube in place). Absent: lymphadenopathy, thyromegaly - Respiratory Respiratory exam: Present: She has good breath sounds bilaterally is moving air fairly well without any definite rales or wheezing now. - Cardiovascular Cardiovascular exam: Present: regular rate and rhythm. Absent: gallop, systolic murmur - GI/Abdominal GI/Abdominal exam: Present: normal bowel sounds, soft, other (She has a PEG tube in place.). Absent: organomegaly, tenderness - Extremities Exam Extremities exam: Absent: calf tenderness, edema - Neurological Exam Neurological exam: Present: altered (She cannot communicate) she is bedridden. - Psychiatric Psychiatric exam: Absent: anxious - Skin Skin exam: Present: warm, dry Results - Labs CBC & BMP: 03/31/17 05:13 03/31/17 05:13 Assessment and Plan (1) Insulin dependent diabetes mellitus Status: Chronic Assessment and plan: The patient does have diabetes and her glucose is 178 today. Current Visit: No (2) History of stroke Status: Chronic Assessment and plan: The patient is quite debilitated after her stroke and has a tracheostomy tube in place. She is completely obtunded. She cannot follow any commands. Current Visit: Yes (3) History of hypertension Status: Acute Assessment and plan: Her blood pressure stable at present. Current Visit: No (4) Aspiration pneumonia Status: Resolved Assessment and plan: The patient has some right lower lobe infiltrate and may have some pneumonia. She seems to be breathing comfortably at present. She is not having very much secretions now. Her lungs sound better and her chest x-ray is stable. She seems to be doing fairly well and can go back to the group home. Current Visit: Yes Qualifiers: Aspiration pneumonia type: due to gastric secretions Laterality: bilateral Lung location: lower lobe of lung Qualified Code(s): J69.0 - Pneumonitis due to inhalation of food and vomit
== END 2017-03-31 14:25 | DRG 137 ==
LOC: EDBD → EDUNIT# → N.ED 19:03 → SUATTDRO 22:23 → N.EDINP 22:23 → N.ICU 22:45 → N.5E 03-28 18:33
PROVIDERS: ADMIT Emergency Medicine; ATTEND Internal Medicine

== ENCOUNTER 2017-05-12 21:40 | Inpatient (IN) ==
[2017-05-12] MEDS ORDERED: SODIUM CHLORIDE 0.9% 500 ML IV STA (22:07)
[2017-05-12] MEDS ORDERED: ALBUTEROL 2.5 MG/3 ML NEB RESP TX STA (22:07)
[2017-05-12] MEDS ORDERED: cefTRIAXone 1,000 MG in SODIUM CHLORIDE 0.9% 100 ML IV STA (22:07)
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
--- NOTE | 2017-05-12 22:22 | XRay Report ---
XR chest 1V portable Indication: Shortness of breath and fever. Chest one view: Comparison 03/29/2017. Tracheostomy, cardiomegaly, marked pulmonary hypoinflation and diffusely coarsened interstitial markings of the lungs are stable. No new infiltrates are identified. Impression: Pulmonary hypoinflation, atelectasis and cardiomegaly as described. PROCEDURE INTERPRETED AT [facility] DEPARTMENT OF RADIOLOGY Final Report Signed by: Curt Kennedy M.D.
[2017-05-12] MEDS ORDERED: cefTRIAXone 1,000 MG VIAL ONE (22:41)
[2017-05-12 23:30] LABS: Basophils % 0.1 % (0.0-0.8); Eosinophils # 0.3 10*3/uL (0.0-0.87); Eosinophils % 1.5 % (0.00-10.9); Hematocrit 29.1 VOL% (35.7-47.0); Hemoglobin 8.7 GM/DL (12.0-16.0); Immature Granulocytes % 2.2 %; Immature Granulocytes Absolute 0.42 #; Lymphocytes % 10.1 % (21.3-54.2); Mean Corpuscular HGB Conc 29.9 GM/DL (32-36); Mean Corpuscular Hemoglobin 28 PG (27-34); Mean Corpuscular Volume 94.8 FL (87-102); Mean Platelet Volume 11.7 FL (9.6-12.0); Monocytes % 5.2 % (1.7-12.7); Neutrophils # 15.6 10*3/uL (1.4-7.4); Neutrophils % 80.9 % (38.7-73.9); Platelet Count 374 T/CUMM (130-400); Red Blood Count 3.07 MC/CUMM (3.8-5.5); Red Cell Distribution Width 18.4 % (9.3-17.3); White Blood Count 19.3 T/CUMM (4-12)
[2017-05-12 23:51] LABS: PT Patient Result 10.8 SECS
[2017-05-12 23:53] LABS: Alanine Aminotransferase 36 U/L (13-56); Albumin 2.4 G/DL (3.4-5.0); Alkaline Phosphatase 218 U/L (45-117); Amylase 183 U/L (25-115); Aspartate Amino Transferase 31 U/L (0-37); Bilirubin,Total < 0.39 MG/DL (0.2-1.0); Blood Urea Nitrogen 68 MG/DL (7-18); Calcium 9.3 MG/DL (8.5-10.1); Glucose 251 MG/DL (74-106); Osmolality,Calculated 332.4 MOS/KG (273-304); Potassium 5.1 MMOL/L (3.5-5.1); Sodium 154 MMOL/L (136-145); Total Protein 6.4 G/DL (6.4-8.3)
[2017-05-13] MEDS ORDERED: ONDANSETRON 4 MG/2 ML VIAL IV PRN (01:06)
[2017-05-13] MEDS ORDERED: ACETAMINOPHEN 325 MG/10.15 ML UDCUP PEG PRN (01:06)
[2017-05-13] MEDS ORDERED: DEXTROSE 50% 25 GM/50 ML VIAL IV PRN (01:12)
[2017-05-13] MEDS ORDERED: GLUCAGON 1 MG VIAL IM PRN (01:12)
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
[2017-05-13] MEDS: SODIUM CHLORIDE 0.45% 1,000 ML IV SCH ×2 (03:30→10:32)
[2017-05-13 07:32] LABS: Apearance,Urine CLEAR (Clear); Bilirubin,Urine Negative (Negative); Blood, Urine Negative (Negative); Glucose,Urine (UA) 50 mg/dL (Negative); Ketones,Urine Negative (Negative); Nitrite,Urine Negative (Negative); Protein,Urine 30 MG/DL; RBC,Urine <1 /HPF (0-4); Squamous Epithelial Cell,Urine Occasional /HPF (0-10); Urine Color Yellow (Yellow); Urine Specific Gravity 1.016 (1.001-1.035); Urine Urobilinogen < 2.0 EU/DL (0.2-1.0); WBC,Urine <1 /HPF (0-6)
[2017-05-13 08:13] LABS: Basophils # 0.1 10*3/uL (0.0-0.2); Basophils % 0.3 % (0.0-0.8); Eosinophils # 0.4 10*3/uL (0.0-0.87); Hematocrit 26.2 VOL% (35.7-47.0); Hemoglobin 7.8 GM/DL (12.0-16.0); Immature Granulocytes % 1.5 %; Immature Granulocytes Absolute 0.29 #; Lymphocytes # 2.4 10*3/uL (1.4-4.0); Lymphocytes % 12.3 % (21.3-54.2); Mean Corpuscular HGB Conc 29.8 GM/DL (32-36); Mean Corpuscular Hemoglobin 28 PG (27-34); Mean Corpuscular Volume 94.2 FL (87-102); Mean Platelet Volume 11.7 FL (9.6-12.0); Monocytes # 1.5 10*3/uL (0.11-0.8); Monocytes % 7.4 % (1.7-12.7); Neutrophils # 15.1 10*3/uL (1.4-7.4); Neutrophils % 76.5 % (38.7-73.9); Platelet Count 315 T/CUMM (130-400); Red Blood Count 2.78 MC/CUMM (3.8-5.5); White Blood Count 19.7 T/CUMM (4-12)
[2017-05-13 08:47] LABS: Calcium 8.8 MG/DL (8.5-10.1); Osmolality,Calculated 330.3 MOS/KG (273-304); Potassium 4.5 MMOL/L (3.5-5.1)
[2017-05-13 08:59] LABS: Eosinophils 4 % (0-10); Hypochromasia 1+; Lymphocytes 10 % (20-55); Segmented Neutrophils 78 % (50-85); Total Cells Counted 100
[2017-05-13 09:00] LABS: Anisocytosis 1+; Microcytosis 1+; Platelet Estimate Normal
[2017-05-13] MEDS ORDERED: PANTOPRAZOLE 40 MG TABLET PO SCH (09:00)
[2017-05-13] MEDS: INSULIN REGULAR 100 UNIT/ML SUBCUT SCH ×3 (09:27→16:40)
[2017-05-13] MEDS: levETIRAcetam 500 MG TABLET PEG SCH ×2 (09:28→23:23)
[2017-05-13] MEDS: amLODIPine 5 MG TABLET PEG SCH (09:28)
[2017-05-13] MEDS: PANTOPRAZOLE 40 MG TABLET PO SCH (09:28)
[2017-05-13] MEDS: ENOXAPARIN 40 MG/0.4 ML SYRINGE SUBCUT SCH (09:28)
[2017-05-13] MEDS: ASPIRIN CHEW 81 MG TABLET PO SCH (09:28)
[2017-05-13] MEDS: FLUCONAZOLE 100 MG TABLET PEG SCH (09:28)
[2017-05-13] MEDS: SCOPOLAMINE 1.5 MG PATCH TRANSDERM SCH (09:29)
[2017-05-13] MEDS ORDERED: SKIN HEALING OINT (AQUAPHOR) 50 GM TUBE TOP PRN (10:22)
[2017-05-13] MEDS: COLLAGENASE OINT 30 GM TUBE TOP SCH (12:35)
[2017-05-13] MEDS: DESITIN 4OZ/NYSTATIN 15 GRAM MIXTURE PASTE TOP SCH ×2 (12:35→23:23)
--- NOTE | 2017-05-13 14:00 | Hospitalist Progress Note ---
Exam - Constitutional Vitals: Period Temp Pulse Resp BP Sys/Monroe Pulse Ox Last 24 Hr 97.0 F-98.5 F 90-117 10-25 102-129/58-83 95-100 Results - Labs CBC & BMP: 05/13/17 07:47 05/13/17 07:47 - Impressions (1) Dehydration with Hypernatremia with acute renal failure Status: Acute Current Visit: Yes - Increase free water replacement with D51/4NS with 20meq at 100 cc/hr - Continue her tube feeds as prescribed by her intermediate. (2) Acute febrile illness with leukocytosis Status: Acute - F/U Blood and urine culture - Cont empiric antibiotics Status: Acute Current Visit: Yes (3) DM2 (chronic) control unknown - On I.S.S. accuchecks qhs - Resume home insulin once tubefeeds resumed (lantus 28 U SQ hs) (4) Essential hypertension (5) History of stroke with dysphagia - Consult nutrition for tubefeeds (6) Seizure disorder - Cont keppra - Seizure precautions - Recheck labs in am DVT prophylaxis- Lovenox Current Visit: Yes D/w pt and nursing staff. All questions answered.
[2017-05-13] MEDS: POTASSIUM CHLORIDE INJ 20 MEQ, SODIUM CHLORIDE 23.4% CONC INJ 38.5 MEQ in STERILE WATER... IV SCH (15:31)
[2017-05-13] MEDS: INSULIN GLARGINE 100 UNIT/ML SUBCUT SCH (23:22)
[2017-05-13] MEDS: cefTRIAXone 1,000 MG in SODIUM CHLORIDE 0.9% 100 ML IV SCH (23:22)
[2017-05-14] MEDS: POTASSIUM CHLORIDE INJ 20 MEQ, SODIUM CHLORIDE 23.4% CONC INJ 38.5 MEQ in STERILE WATER... IV SCH (03:00)
[2017-05-14] MEDS: INSULIN REGULAR 100 UNIT/ML SUBCUT SCH ×5 (04:00→22:23)
[2017-05-14 06:01] LABS: Basophils % 0.3 % (0.0-0.8); Eosinophils # 0.6 10*3/uL (0.0-0.87); Eosinophils % 4.4 % (0.00-10.9); Hematocrit 25.5 VOL% (35.7-47.0); Hemoglobin 7.6 GM/DL (12.0-16.0); Immature Granulocytes Absolute 0.15 #; Lymphocytes # 1.9 10*3/uL (1.4-4.0); Mean Corpuscular HGB Conc 29.8 GM/DL (32-36); Mean Corpuscular Hemoglobin 28 PG (27-34); Mean Corpuscular Volume 95.1 FL (87-102); Mean Platelet Volume 11.8 FL (9.6-12.0); Monocytes % 6.6 % (1.7-12.7); Neutrophils % 74.7 % (38.7-73.9); Platelet Count 294 T/CUMM (130-400); Red Blood Count 2.68 MC/CUMM (3.8-5.5); Red Cell Distribution Width 17.4 % (9.3-17.3); White Blood Count 14.7 T/CUMM (4-12)
[2017-05-14 06:21] LABS: Eosinophils 8 % (0-10); Lymphocytes 7 % (20-55); Segmented Neutrophils 78 % (50-85); Total Cells Counted 100
[2017-05-14 06:22] LABS: Hypochromasia 1+; Microcytosis 1+; Platelet Estimate Adequate
[2017-05-14 06:34] LABS: Calcium 8.7 MG/DL (8.5-10.1); Osmolality,Calculated 313.1 MOS/KG (273-304); Potassium 4.9 MMOL/L (3.5-5.1)
[2017-05-14 07:26] LABS: Sedimentation Rate-Westergren 135 MM/HR (0-30)
[2017-05-14] MEDS: ENOXAPARIN 40 MG/0.4 ML SYRINGE SUBCUT SCH (08:43)
[2017-05-14] MEDS: ASPIRIN CHEW 81 MG TABLET PO SCH (08:44)
[2017-05-14] MEDS: levETIRAcetam 500 MG TABLET PEG SCH ×2 (08:44→22:21)
[2017-05-14] MEDS: PANTOPRAZOLE 40 MG TABLET PO SCH (08:44)
[2017-05-14] MEDS: amLODIPine 5 MG TABLET PEG SCH (08:44)
[2017-05-14] MEDS: FLUCONAZOLE 100 MG TABLET PEG SCH (08:44)
[2017-05-14] MEDS: DESITIN 4OZ/NYSTATIN 15 GRAM MIXTURE PASTE TOP SCH ×2 (08:55→22:24)
[2017-05-14] MEDS: SODIUM HYPOCHLORITE 0.25% IRRIG 473 ML BOTTLE TOP SCH (08:55)
[2017-05-14] MEDS: COLLAGENASE OINT 30 GM TUBE TOP SCH (08:55)
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
--- NOTE | 2017-05-14 09:43 | Physician Query Form ---
CLICK EDIT DOCUMENT TO SELECT QUERY ANSWER --> OK --> SIGN PROVIDERS: Make your selection(s) from the choices in EACH section by typing an "x" and enter comments in the comment section Please use your independent medical judgment in providing your response. This request does not imply that any particular answer is desired or expected. CLINICAL INDICATORS: (Providers should not edit this section) "Stage 3 pressure ulcer present to L ischium. Skin barrier cream ordered" Based on the above, could you please provide further clarification regarding the ulcer/wound? LOCATION OF WOUND/ULCER: ( x) I agree with the wound care nurses assessment ( ) I disagree with the wound care nurses assessment and I will clarify below IF A PRESSURE ULCER, PLEASE ALSO INCLUDE THE STAGE* OF THE ULCER: ( ) Stage 1 - Skin intact, non-blanchable redness ( ) Stage 2 - Partial thickness loss of dermis, includes intact or open blister ( ) Stage 3 - Full thickness tissue not including bone, tendon, or muscle ( ) Stage 4 - Full thickness tissue loss, including exposed bone, tendon, or muscle ( ) Unstageable - Full thickness tissue loss in which the base is covered by slough (yellow, felipe, hatch, green or brown) and/or eschar (felipe, brown or black) in the wound bed. ( ) Suspected Deep Tissue Injury - Purple or maroon localized area of discolored intact skin or blood-filled blister due to damage of underlying soft tissue from pressure and/or shear. The area may be preceded by tissue that is painful, firm, mushy, boggy, warmer or cooler as compared to adjacent tissue. ( ) Clinically unable to determine *Source: National Pressure Ulcer Advisory Panel (NPUAP) COMMENTS: PLEASE ALSO DOCUMENT RESPONSE IN PROGRESS NOTES AND/OR DISCHARGE SUMMARY Use of terms such as suspected, likely, or probable (associated with a specific diagnosis that is being evaluated, monitored, or treated as if it exists) are acceptable and can be restated in the discharge summary if not ruled out. MTDD
[2017-05-14] MEDS: LACTOBACILLUS RHAMNOSUS GG CAPSULE PER TUBE SCH ×2 (10:05→22:21)
--- NOTE | 2017-05-14 11:29 | XRay Report ---
History: Shortness of breath Date: 05/14/2017 Study: Chest x-ray AP portable Comparison exam: May 12, 2017 There is continued cardiomegaly. The mediastinal contours are stable. The tracheostomy tube is well-positioned. There is mild pulmonary vascular engorgement. Shallow inspiration with mild bibasilar atelectasis and possibly some mild pulmonary edema. There is improved aeration of the right base compared to the previous study. Impression: Cardiomegaly and continued bibasilar pulmonary edema/atelectasis. Improved aeration in the right base since the previous study PROCEDURE INTERPRETED AT [facility] DEPARTMENT OF RADIOLOGY Final Report Signed by: Dr. Scarlett Monahan
[2017-05-14] MEDS ORDERED: FUROSEMIDE 20 MG/2 ML VIAL IV ONE (13:45)
--- NOTE | 2017-05-14 13:45 | Hospitalist Progress Note ---
Hospitalist: Subjective Interval history: Nurse reports no fever. +BM. Tolerating tubefeeds. No cough reported. Exam - Constitutional Vitals: Period Temp Pulse Resp BP Sys/Monroe Pulse Ox Last 24 Hr 96.5 F-98.3 F 88-102 18-22 100-125/50-69 99-100 Exam: General: Resting comfortably lying in hospital bed in NAD Neck: trach in place Cardiovascular :regular rate and rhythm Lungs :mostly clear to auscultation bilaterally with occasional rhonchi nonlabored breathing diminished at the bases, Abdomen :soft nontender nondistended positive bowel sounds +PEG Extremities :warm and well perfused no clubbing cyanosis or edema Results - Labs CBC & BMP: 05/14/17 05:30 05/14/17 05:30 - Impressions (1) Dehydration with Hypernatremia with acute renal failure Status: Acute Current Visit: Yes - Stop IVF. - Continue her tube feeds and ask nutrition to increase free water via PEG. - RFP in am (2) Acute febrile illness with leukocytosis Status: Acute - F/U Blood and urine culture. Still no growth to date - Cont empiric antibiotics Status: Acute Current Visit: Yes (3) Mild Possible pulm edema - Lasix 20mg IV x 1 with albumin IV 1 (4) DM2 (chronic) control unknown - On I.S.S. accuchecks qhs - Cont Lantus 28 U SQ hs (4) Essential hypertension - BP low so holding hydralazine and Norvasc (5) History of stroke with dysphagia - Tubefeeds per nutrition and will ask them to increase free water (6) Seizure disorder - Cont keppra - Seizure precautions - Recheck labs in am DVT prophylaxis- Lovenox Current Visit: Yes D/w pt and nursing staff. All questions answered.
[2017-05-14] MEDS ORDERED: ALBUMIN 25% 25 GM in PREMIX 1 EACH IV ONE (14:30)
[2017-05-14] MEDS: cefTRIAXone 1,000 MG in SODIUM CHLORIDE 0.9% 100 ML IV SCH (22:22)
[2017-05-14] MEDS: INSULIN GLARGINE 100 UNIT/ML SUBCUT SCH (22:23)
[2017-05-15 06:10] LABS: Basophils % 0.2 % (0.0-0.8); Eosinophils # 0.5 10*3/uL (0.0-0.87); Eosinophils % 4.1 % (0.00-10.9); Hematocrit 24.4 VOL% (35.7-47.0); Hemoglobin 7.3 GM/DL (12.0-16.0); Immature Granulocytes % 0.9 %; Lymphocytes # 1.7 10*3/uL (1.4-4.0); Lymphocytes % 15.6 % (21.3-54.2); Mean Corpuscular HGB Conc 29.9 GM/DL (32-36); Mean Corpuscular Hemoglobin 27 PG (27-34); Mean Corpuscular Volume 91.7 FL (87-102); Mean Platelet Volume 12.1 FL (9.6-12.0); Monocytes % 8.7 % (1.7-12.7); Neutrophils # 7.8 10*3/uL (1.4-7.4); Neutrophils % 70.5 % (38.7-73.9); Platelet Count 300 T/CUMM (130-400); Red Blood Count 2.66 MC/CUMM (3.8-5.5); Red Cell Distribution Width 16.7 % (9.3-17.3); White Blood Count 11.1 T/CUMM (4-12)
[2017-05-15 06:33] LABS: Eosinophils 3 % (0-10); Hypochromasia 1+; Lymphocytes 22 % (20-55); Microcytosis 1+; Platelet Estimate Adequate; Segmented Neutrophils 66 % (50-85); Total Cells Counted 100
[2017-05-15 06:48] LABS: Calcium 9.4 MG/DL (8.5-10.1); Magnesium 2.6 MG/DL (1.8-2.4); Osmolality,Calculated 300.6 MOS/KG (273-304); Potassium 4.7 MMOL/L (3.5-5.1); Prealbumin 20.7 MG/DL (20-40)
--- NOTE | 2017-05-15 07:41 | Hospitalist Progress Note ---
Hospitalist: Subjective Interval history: Blood pressure improved after holding antihypertensives. She has had intermittent tachycardia. Tolerating tubefeeds. +BM. No family at the bedside. Exam - Constitutional Vitals: Period Temp Pulse Resp BP Sys/Monroe Pulse Ox Last 24 Hr 97.3 F-98.1 F 88-112 16-53 104-160/57-96 98-100 Exam: General: Resting comfortably Awake, nonverbal lying in hospital bed in NAD Neck: trach in place Cardiovascular :regular rate and rhythm Lungs :occasional rhonchi nonlabored breathing diminished at the bases, Abdomen :soft nontender nondistended positive bowel sounds +PEG Extremities :warm and well perfused no clubbing cyanosis or edema Results - Labs CBC & BMP: 05/15/17 05:17 05/15/17 05:17 - Impressions (1) Dehydration with Hypernatremia with acute renal failure- resolved Status: Acute Current Visit: Yes - Continue her tube feeds and free water via PEG. - RFP in am (2) Acute febrile illness with leukocytosis suspect due to aspiration pneumonia Status: Acute - F/U Blood and urine culture. Still no growth to date - Cont empiric antibiotics Status: Acute Current Visit: Yes (3) Acute on chronic grade 1 diastolic heart failure/ Mild Possible pulm edema - s/p Lasix 20mg IV x 1 with albumin IV 1. Repeat cxr 05/15 shows mildly increased bibasilar atelectasis and/or pulmonary edema compared to the previous study. (4) DM2 (chronic) control unknown - On I.S.S. accuchecks qhs - Cont Lantus 28 U SQ hs (4) Essential hypertension - BP improved. Start Hydralazine and metoprolol. (5) History of stroke with dysphagia - Tubefeeds per nutrition and will ask them to increase free water (6) Seizure disorder - Cont keppra - Seizure precautions - Recheck labs in am (7) Progressive anemia - type and cross 2U PRBCs. recheck CBC. Check anemia panel and FOBT DVT prophylaxis- Lovenox Current Visit: Yes D/w pt and nursing staff. All questions answered.
[2017-05-15] MEDS ORDERED: SODIUM CHLORIDE 0.9% 250 ML IV PRN (07:55)
[2017-05-15] MEDS ORDERED: FUROSEMIDE 20 MG/2 ML VIAL IV PRN (07:55)
--- NOTE | 2017-05-15 08:08 | XRay Report ---
History: Shortness of breath and cough. Follow-up pleural effusions Date: 05/15/2017 at 7:38 AM Study: Chest x-ray AP portable Comparison exam: 05/14/2017 The tracheostomy tube is well-positioned. There is continued cardiomegaly. The mediastinal contours are stable. The pulmonary vasculature is slightly prominent. There is some strandy and hazy opacity in the lung bases compatible with a combination of atelectasis and possible mild pulmonary edema. These changes are slightly increased bilaterally compared to the previous study. There is no increasing pleural effusion. Osseous structures are similar. Impression: Mildly increased bibasilar atelectasis and/or pulmonary edema compared to the previous study PROCEDURE INTERPRETED AT [facility] DEPARTMENT OF RADIOLOGY Final Report Signed by: Dr. Scarlett Monahan
[2017-05-15 08:09] LABS: % Iron Saturation 20.2 % (18-50)
[2017-05-15 09:26] LABS: Folate 9.1 NG/ML (5.4-24.0)
[2017-05-15] MEDS: INSULIN REGULAR 100 UNIT/ML SUBCUT SCH ×4 (09:38→22:01)
[2017-05-15] MEDS: ENOXAPARIN 40 MG/0.4 ML SYRINGE SUBCUT SCH (09:38)
[2017-05-15] MEDS: ASPIRIN CHEW 81 MG TABLET PO SCH (09:39)
[2017-05-15] MEDS: PANTOPRAZOLE 40 MG TABLET PO SCH (09:39)
[2017-05-15] MEDS: METOPROLOL TARTRATE 25 MG TABLET PO SCH ×2 (09:39→22:00)
[2017-05-15] MEDS: levETIRAcetam 500 MG TABLET PEG SCH ×2 (09:39→22:00)
[2017-05-15] MEDS: FLUCONAZOLE 100 MG TABLET PEG SCH (09:39)
[2017-05-15] MEDS: LACTOBACILLUS RHAMNOSUS GG CAPSULE PER TUBE SCH ×2 (09:39→22:00)
[2017-05-15] MEDS: hydrALAZINE 25 MG TABLET PO SCH ×3 (09:39→21:59)
[2017-05-15] MEDS: DESITIN 4OZ/NYSTATIN 15 GRAM MIXTURE PASTE TOP SCH ×2 (09:50→22:00)
[2017-05-15] MEDS: COLLAGENASE OINT 30 GM TUBE TOP SCH (09:50)
[2017-05-15] MEDS: SODIUM HYPOCHLORITE 0.25% IRRIG 473 ML BOTTLE TOP SCH (09:50)
[2017-05-15] MEDS: cefTRIAXone 1,000 MG in SODIUM CHLORIDE 0.9% 100 ML IV SCH (22:15)
[2017-05-15] MEDS: INSULIN GLARGINE 100 UNIT/ML SUBCUT SCH (22:15)
[2017-05-16 05:23] LABS: Basophils % 0.3 % (0.0-0.8); Eosinophils # 0.7 10*3/uL (0.0-0.87); Eosinophils % 5.2 % (0.00-10.9); Hematocrit 30.4 VOL% (35.7-47.0); Hemoglobin 9.6 GM/DL (12.0-16.0); Immature Granulocytes Absolute 0.13 #; Lymphocytes # 2.2 10*3/uL (1.4-4.0); Lymphocytes % 17.2 % (21.3-54.2); Mean Corpuscular HGB Conc 31.6 GM/DL (32-36); Mean Corpuscular Hemoglobin 28 PG (27-34); Mean Corpuscular Volume 87.9 FL (87-102); Mean Platelet Volume 11.7 FL (9.6-12.0); Monocytes # 1.4 10*3/uL (0.11-0.8); Monocytes % 10.8 % (1.7-12.7); Neutrophils # 8.2 10*3/uL (1.4-7.4); Neutrophils % 65.5 % (38.7-73.9); Platelet Count 269 T/CUMM (130-400); Red Blood Count 3.46 MC/CUMM (3.8-5.5); White Blood Count 12.6 T/CUMM (4-12)
[2017-05-16 05:47] LABS: Calcium 9.5 MG/DL (8.5-10.1); Osmolality,Calculated 289.3 MOS/KG (273-304); Potassium 4.6 MMOL/L (3.5-5.1)
[2017-05-16] MEDS: INSULIN REGULAR 100 UNIT/ML SUBCUT SCH ×4 (07:20→21:04)
[2017-05-16] MEDS: PANTOPRAZOLE 40 MG TABLET PO SCH (08:01)
[2017-05-16] MEDS: ENOXAPARIN 40 MG/0.4 ML SYRINGE SUBCUT SCH (08:01)
[2017-05-16] MEDS: levETIRAcetam 500 MG TABLET PEG SCH ×2 (08:01→21:02)
[2017-05-16] MEDS: hydrALAZINE 25 MG TABLET PO SCH ×3 (08:02→21:02)
[2017-05-16] MEDS: DESITIN 4OZ/NYSTATIN 15 GRAM MIXTURE PASTE TOP SCH ×2 (08:02→21:04)
[2017-05-16] MEDS: COLLAGENASE OINT 30 GM TUBE TOP SCH (08:02)
[2017-05-16] MEDS: ASPIRIN CHEW 81 MG TABLET PO SCH (08:02)
[2017-05-16] MEDS: FLUCONAZOLE 100 MG TABLET PEG SCH (08:02)
[2017-05-16] MEDS: METOPROLOL TARTRATE 25 MG TABLET PO SCH ×2 (08:02→21:02)
[2017-05-16] MEDS: SODIUM HYPOCHLORITE 0.25% IRRIG 473 ML BOTTLE TOP SCH (08:02)
[2017-05-16] MEDS: LACTOBACILLUS RHAMNOSUS GG CAPSULE PER TUBE SCH ×2 (08:02→21:02)
[2017-05-16] MEDS: SCOPOLAMINE 1.5 MG PATCH TRANSDERM SCH (08:16)
[2017-05-16] MEDS ORDERED: ERGOCALCIFEROL 50,000 UNIT CAPSULE PO SCH (10:30)
[2017-05-16] MEDS: CYANOCOBALAMIN 500 MCG TABLET PEG SCH (11:39)
--- NOTE | 2017-05-16 11:44 | Hospitalist Progress Note ---
Exam - Constitutional Vitals: Period Temp Pulse Resp BP Sys/Monroe Pulse Ox Last 24 Hr 96.5 F-99 F 82-102 15-22 104-146/53-91 97-100 Exam: General: Resting comfortably Awake, nonverbal lying in hospital bed in NAD Neck: trach in place Cardiovascular :regular rate and rhythm Lungs :occasional rhonchi nonlabored breathing diminished at the bases, Abdomen :soft nontender nondistended positive bowel sounds +PEG Extremities :warm and well perfused no clubbing cyanosis or edema Results - Labs CBC & BMP: 05/16/17 04:54 05/16/17 04:54 - Impressions (1) Dehydration with hypernatremia with acute renal failure- resolved Status: Acute Current Visit: Yes - Continue her tube feeds and free water via PEG. - RFP noted (2) Acute febrile illness with leukocytosis suspect due to aspiration pneumonia - improving Status: Acute - F/U Blood and urine culture. Still no growth to date - Cont empiric antibiotics Status: Acute Current Visit: Yes (3) Acute on chronic grade 1 diastolic heart failure/ Mild Possible pulm edema- improved - s/p Lasix 20mg IV x 1 with albumin IV 1. - Repeat cxr 05/15 shows mildly increased bibasilar atelectasis and/or pulmonary edema compared to the previous study but on my personal review I do not agree with this assessment. - CXR 05/16-personally reviewed by me shows improvement in lower lobes accounting for differences in inspiration and rotation (4) DM2 (chronic) control unknown - On I.S.S. accuchecks qhs - Cont Lantus 28 U SQ hs (4) Essential hypertension - Cont Hydralazine and metoprolol. (5) History of stroke with dysphagia - Tubefeeds per nutrition and will ask them to increase free water (6) Seizure disorder - Cont keppra - Seizure precautions (7) Progressive anemia on anemia of chronic disease- improved - transfused 2U PRBCs 05/15. repeat CBC improved. Anemia panel reviewed. FOBT + - Son reports pt has had to have a blood transfusion 2 weeks at [facility]. - Vitamin B12 in 600's. Start mild supplementation - improved s/p transfusion (8) Vitamin D deficiency - start supplementation and will need recheck in 4 weeks DVT prophylaxis- Lovenox Current Visit: Yes D/w nursing staff. No family present. D/W son by phone. All questions answered. Will request recent endoscopy results from [facility]. Possibly return to [place] Friday if remains stable.
[2017-05-16] MEDS: cefTRIAXone 1,000 MG in SODIUM CHLORIDE 0.9% 100 ML IV SCH (21:03)
[2017-05-16] MEDS: INSULIN GLARGINE 100 UNIT/ML SUBCUT SCH (21:03)
--- NOTE | 2017-05-17 07:45 | Hospitalist Progress Note ---
Hospitalist: Subjective Interval history: No significant overnight events. No new complaints/issues per nursing. Patient tolerating tube feeds. She is having bowel movements. No fever. No increased secretions. Exam - Constitutional Vitals: Period Temp Pulse Resp BP Sys/Monroe Pulse Ox Last 24 Hr 97.6 F-99.9 F 92-102 16-32 102-146/54-74 97-100 Exam: General: Resting comfortably Awake, nonverbal lying in hospital bed in NAD, not following commands Neck: trach in place Cardiovascular :regular rate and rhythm Lungs : Clear to auscultation bilaterally nonlabored breathing diminished at the bases, Abdomen :soft nontender nondistended positive bowel sounds +PEG Extremities :warm and well perfused no clubbing cyanosis or edema Results - Labs CBC & BMP: 05/16/17 04:54 05/16/17 04:54 - Impressions (1) Acute febrile illness with leukocytosis suspect due to aspiration pneumonia - improving Status: Acute - F/U Blood and urine culture. Still no growth to date - Cont empiric antibiotics Status: Acute Current Visit: Yes (2) Acute on chronic grade 1 diastolic heart failure/ Mild Possible pulm edema- appears compensated and lung exam improved - s/p Lasix 20mg IV x 1 with albumin IV 1. - Repeat cxr 05/15 shows mildly increased bibasilar atelectasis and/or pulmonary edema compared to the previous study. - CXR 05/16-personally reviewed by me shows improvement in lower lobes accounting for differences in inspiration and rotation (3) Progressive anemia on anemia of chronic disease due to duodenitis/gastritis- improved s/p transfusion - transfused 2U PRBCs 05/15. repeat CBC improved. Anemia panel reviewed. FOBT + - Son reports pt has had to have a blood transfusion 2 weeks at [facility]. - Recent EGD at [place] showed gastritis, ?duodenitis - Add PPI and carafate - Colonoscopy showed polyps + tubular adenoma - Vitamin B12 in 600's. Cont mild supplementation (4) DM2 (chronic) control unknown - On I.S.S. accuchecks qhs - Cont Lantus 28 U SQ hs (4) Essential hypertension - Cont Hydralazine and metoprolol. (5) History of stroke with dysphagia - Tubefeeds per nutrition (6) Seizure disorder - Cont keppra - Seizure precautions (7) Dehydration with hypernatremia with acute renal failure- resolved Status: Acute Current Visit: Yes - Continue her tube feeds and free water via PEG. - RFP noted (8) Vitamin D deficiency - start supplementation and will need recheck in 4 weeks DVT prophylaxis- Change Lovenox to SCDs. Current Visit: Yes D/w nursing staff. D/W son by phone. All questions answered. Possibly return to [place] Friday if remains stable. I will be away several days. One of my associates will follow in my absence.
[2017-05-17] MEDS: LACTOBACILLUS RHAMNOSUS GG CAPSULE PER TUBE SCH ×2 (08:36→20:55)
[2017-05-17] MEDS: ENOXAPARIN 40 MG/0.4 ML SYRINGE SUBCUT SCH (08:36)
[2017-05-17] MEDS: FLUCONAZOLE 100 MG TABLET PEG SCH (08:36)
[2017-05-17] MEDS: levETIRAcetam 500 MG TABLET PEG SCH ×2 (08:37→20:55)
[2017-05-17] MEDS: CYANOCOBALAMIN 500 MCG TABLET PEG SCH (08:37)
[2017-05-17] MEDS: hydrALAZINE 25 MG TABLET PO SCH ×3 (08:37→20:55)
[2017-05-17] MEDS: ASPIRIN CHEW 81 MG TABLET PO SCH (08:37)
[2017-05-17] MEDS: PANTOPRAZOLE 40 MG TABLET PO SCH (08:37)
[2017-05-17] MEDS: METOPROLOL TARTRATE 25 MG TABLET PO SCH ×2 (08:41→20:55)
[2017-05-17] MEDS: INSULIN REGULAR 100 UNIT/ML SUBCUT SCH ×4 (08:41→20:55)
[2017-05-17] MEDS: DESITIN 4OZ/NYSTATIN 15 GRAM MIXTURE PASTE TOP SCH ×2 (10:45→20:55)
[2017-05-17] MEDS: SODIUM HYPOCHLORITE 0.25% IRRIG 473 ML BOTTLE TOP SCH (10:45)
[2017-05-17] MEDS: COLLAGENASE OINT 30 GM TUBE TOP SCH (10:45)
[2017-05-17] MEDS: SUCRALFATE 1 GM/10 ML UDCUP NG SCH ×2 (11:50→17:07)
[2017-05-17] MEDS: INSULIN GLARGINE 100 UNIT/ML SUBCUT SCH (20:54)
[2017-05-17] MEDS: cefTRIAXone 1,000 MG in SODIUM CHLORIDE 0.9% 100 ML IV SCH (20:55)
[2017-05-18] MEDS: SUCRALFATE 1 GM/10 ML UDCUP NG SCH ×4 (00:40→17:33)
[2017-05-18] MEDS: INSULIN REGULAR 100 UNIT/ML SUBCUT SCH ×4 (08:57→20:26)
[2017-05-18] MEDS: hydrALAZINE 25 MG TABLET PO SCH ×3 (08:58→20:30)
[2017-05-18] MEDS: CYANOCOBALAMIN 500 MCG TABLET PEG SCH (08:59)
[2017-05-18] MEDS: DESITIN 4OZ/NYSTATIN 15 GRAM MIXTURE PASTE TOP SCH ×2 (08:59→20:29)
[2017-05-18] MEDS: levETIRAcetam 500 MG TABLET PEG SCH ×2 (08:59→20:30)
[2017-05-18] MEDS: ASPIRIN CHEW 81 MG TABLET PO SCH (08:59)
[2017-05-18] MEDS: METOPROLOL TARTRATE 25 MG TABLET PO SCH ×2 (08:59→20:30)
[2017-05-18] MEDS: SODIUM HYPOCHLORITE 0.25% IRRIG 473 ML BOTTLE TOP SCH (08:59)
[2017-05-18] MEDS: LACTOBACILLUS RHAMNOSUS GG CAPSULE PER TUBE SCH ×2 (08:59→20:30)
[2017-05-18] MEDS: PANTOPRAZOLE 40 MG TABLET PO SCH (08:59)
[2017-05-18] MEDS: FLUCONAZOLE 100 MG TABLET PEG SCH (08:59)
[2017-05-18] MEDS: COLLAGENASE OINT 30 GM TUBE TOP SCH (09:00)
--- NOTE | 2017-05-18 09:29 | Hospitalist Progress Note ---
Assessment and Plan (1) Aspiration pneumonia Status: Resolved Current Visit: No Qualifiers: Aspiration pneumonia type: due to gastric secretions Laterality: bilateral Lung location: lower lobe of lung Qualified Code(s): J69.0 - Pneumonitis due to inhalation of food and vomit (2) Dehydration Status: Acute Current Visit: Yes (3) History of stroke Status: Chronic Current Visit: Yes (4) Insulin dependent diabetes mellitus Status: Chronic Current Visit: No (5) Anemia Status: Acute Assessment and plan: -Continue IV antibiotics for treatment of pneumonia possibly secondary due to aspiration -Continue seizure medication with Keppra -Continue oxygen per blow-by mask due to tracheostomy -Urinary output has improved -Continue diabetic regimen with Lantus -Continue blood pressure medications -Continue PEG tube feedings -Blood culture and urine culture results have revealed no growth Current Visit: No Qualifiers: Anemia type: unspecified type Qualified Code(s): D64.9 - Anemia, unspecified Hospitalist: Subjective Interval history: The patient is a chronically ill female neurologically devastated from a previous stroke, who was admitted to the hospital due to aspiration pneumonia. Nursing staff reports no new complaints overnight. Patient is tolerating PEG tube feedings, she has not had any further vomiting. The patient is unable to provide any history due to her severe neurological complication of her stroke. Exam - Constitutional Vitals: Period Temp Pulse Resp BP Sys/Monroe Pulse Ox Last 24 Hr 97.8 F-98.7 F 89-126 18-25 142-169/81-98 98-100 General appearance: over weight - Head Head exam: Present: normocephalic, atraumatic - Eye Pupils: Present: MELISSA - Respiratory Respiratory exam: Present: wheezes (Bilateral wheezing). Absent: decreased breath sounds, rales, rhonchi - Cardiovascular Cardiovascular exam: Present: regular rate and rhythm. Absent: systolic murmur , tachycardia - GI/Abdominal GI/Abdominal exam: Present: normal bowel sounds, soft, other (PEG tube in place , no drainage from the PEG tube). Absent: ascites, distended - Neurological Exam Neurological exam: Present: altered (Patient unable to respond due to effects of her previous stroke), other (Obtunded) - Psychiatric Psychiatric exam: Present: other - Skin Skin exam: Present: normal color. Absent: erythema Results - Labs CBC & BMP: 05/16/17 04:54 05/16/17 04:54
[2017-05-18 14:19] LABS: ABG Base Excess 2.4 MMOL/L (-2.5-2.5); ABG HCO3 26.5 MMOL/L (20-26); ABG Oxygen Saturation 99.1 % (95-100); ABG PCO2 42.5 MM HG (35-48); ABG PH 7.414 (7.35-7.45); ABG TCO2 24.8 MMOL/L (23-27)
[2017-05-18 14:38] LABS: Basophils # 0.1 10*3/uL (0.0-0.2); Basophils % 0.4 % (0.0-0.8); Eosinophils # 0.5 10*3/uL (0.0-0.87); Eosinophils % 3.5 % (0.00-10.9); Hematocrit 30.9 VOL% (35.7-47.0); Hemoglobin 9.9 GM/DL (12.0-16.0); Immature Granulocytes % 0.9 %; Immature Granulocytes Absolute 0.12 #; Lymphocytes # 2.1 10*3/uL (1.4-4.0); Lymphocytes % 15.2 % (21.3-54.2); Mean Corpuscular Hemoglobin 28 PG (27-34); Mean Platelet Volume 12.6 FL (9.6-12.0); Monocytes # 1.3 10*3/uL (0.11-0.8); Monocytes % 9.9 % (1.7-12.7); Neutrophils # 9.5 10*3/uL (1.4-7.4); Neutrophils % 70.1 % (38.7-73.9); Platelet Count 249 T/CUMM (130-400); Red Blood Count 3.55 MC/CUMM (3.8-5.5); Red Cell Distribution Width 15.5 % (9.3-17.3); White Blood Count 13.6 T/CUMM (4-12)
[2017-05-18] MEDS: INSULIN GLARGINE 100 UNIT/ML SUBCUT SCH (20:27)
[2017-05-18] MEDS: cefTRIAXone 1,000 MG in SODIUM CHLORIDE 0.9% 100 ML IV SCH (20:28)
[2017-05-19] MEDS: SUCRALFATE 1 GM/10 ML UDCUP NG SCH ×2 (00:40→05:49)
[2017-05-19 05:58] LABS: Magnesium 2.3 MG/DL (1.8-2.4); Phosphorous 4.2 MG/DL (2.5-4.9)
[2017-05-19] MEDS: INSULIN REGULAR 100 UNIT/ML SUBCUT SCH ×2 (08:22→12:27)
[2017-05-19] MEDS: LACTOBACILLUS RHAMNOSUS GG CAPSULE PER TUBE SCH (08:23)
[2017-05-19] MEDS: METOPROLOL TARTRATE 25 MG TABLET PO SCH (08:23)
[2017-05-19] MEDS: PANTOPRAZOLE 40 MG TABLET PO SCH (08:23)
[2017-05-19] MEDS: levETIRAcetam 500 MG TABLET PEG SCH (08:23)
[2017-05-19] MEDS: CYANOCOBALAMIN 500 MCG TABLET PEG SCH (08:23)
[2017-05-19] MEDS: hydrALAZINE 25 MG TABLET PO SCH (08:24)
[2017-05-19] MEDS: COLLAGENASE OINT 30 GM TUBE TOP SCH (08:24)
[2017-05-19] MEDS: SCOPOLAMINE 1.5 MG PATCH TRANSDERM SCH (08:24)
[2017-05-19] MEDS: ASPIRIN CHEW 81 MG TABLET PO SCH (08:24)
[2017-05-19] MEDS: FLUCONAZOLE 100 MG TABLET PEG SCH (08:24)
[2017-05-19] MEDS: DESITIN 4OZ/NYSTATIN 15 GRAM MIXTURE PASTE TOP SCH (08:25)
[2017-05-19] MEDS: SODIUM HYPOCHLORITE 0.25% IRRIG 473 ML BOTTLE TOP SCH (08:26)
--- NOTE | 2017-05-19 10:06 | Discharge Summary ---
Hospital Course - Hospital Course Hospital Course: Discharge diagnosis: Aspiration pneumonia Hypernatremia Persistent vegetative state Type II DM The patient presented to the hospital and was felt to have aspiration pneumonia. She was also dehydrated and hypernatremic. She was given IV antibiotics and fluids. Cultures were all negative. Chest x-ray showed some improvement with appropriate treatment. The patient remained nonverbal and noncommunicative. She tolerated tube feedings. She was comfortable on the day of discharge, and we will now let her go back to her longterm Discharge Plan - Discharge Data Disposition: Disch/Xfer to Snf Condition at Discharge: Stable Discharge Diet: advance to your usual diet - Discharge Medications New Ergocalciferol [Drisdol] 50,000 unit PO Q7D@0900 capsule Metoprolol Tartrate Tab [Lopressor Tab] 25 mg PO BID tablet Skin Healing Oint (Aquaphor) [Aquaphor] 1 applic TOP PRN PRN applic PRN Reason: Dry Skin Sodium Hypochlorite 0.25% Irr [Dakins 1/2 Strength 0.25% Soln] 1 applic TOP DAILY applic Cyanocobalamin (Vitamin B-12) [Vitamin B-12] 1,000 mcg PO DAILY #30 tablet.er Insulin Glargine [Lantus] 28 unit SUBCUT BEDTIME unit Continue Pantoprazole Tab [Protonix Tab] 40 mg PEG DAILY levETIRAcetam [Levetiracetam] 1,000 mg PEG BID Insulin Glargine [Lantus] 28 unit SUBCUT BEDTIME amLODIPine [Norvasc] 5 mg PEG DAILY Insulin Lispro [HumaLOG] 0 unit SUBCUT ACHS Scopolamine 1.5 mg Patch [Transderm Scop 1.5 mg/72 hr Patch] 1 patch TRANSDERM Q3DAY #10 patch hydrALAZINE TAB [Apresoline Tab] 50 mg PEG TID Aspirin Chew Tab 81 mg PEG DAILY Acetaminophen [Pain Relief] 1,000 mg PO Q4H PRN PRN Reason: Pain Mild (1-3) And/Or Fever - Follow Up or Referral - Forms/Instructions Exam - Constitutional Vitals: Period Temp Pulse Resp BP Sys/Mon[place] Pulse Ox Last 24 Hr 97.6 F-98.6 F 90-110 16-20 102-143/62-79 98-100 Vital signs are noted above. Heart is regular with a soft systolic murmur no gallop. She has a few rhonchi in the chest. PEG site looks clean. She is awake and looks around, but does not interact with the external environment. Discharge Results Procedures and tests throughout hospitalization: Pending Orders 05/15/17 15:40 Occult Blood, Stool Stat 05/18/17 14:07 Levetiracetam (Keppra) Stat Labs on day of discharge: Labs from last 24 hours 05/19/17 05/19/17 05/18/17 08:03 05:02 19:12 WBC RBC Hgb Hct MCV MCH MCHC RDW Plt Count MPV Neut % (Auto) Lymph % (Auto) [place] % (Auto) Eos % (Auto) Baso % (Auto) Neut # (Auto) Lymph # (Auto) [place] # (Auto) Eos # (Auto) Baso # (Auto) Immature Gran % Nucleated RBC % Immature Gran # Nucleated RBCs # ABG pH ABG pCO2 ABG pO2 ABG HCO3 ABG Total CO2 ABG O2 Saturation ABG Base Excess Sodium Potassium Chloride Carbon Dioxide Anion Gap BUN Creatinine GFR Calculation BUN/Creatinine Ratio Glucose POC Glucose 88 185 H Calculated Osmolality Calcium Phosphorus 4.2 Magnesium 2.3 Prealbumin 21.0 05/18/17 05/18/17 05/18/17 17:23 14:11 14:11 WBC 13.6 H RBC 3.55 L Hgb 9.9 L Hct 30.9 L MCV 87.0 MCH 28 MCHC 32.0 RDW 15.5 Plt Count 249 MPV 12.6 H Neut % (Auto) 70.1 Lymph % (Auto) 15.2 L [place] % (Auto) 9.9 Eos % (Auto) 3.5 Baso % (Auto) 0.4 Neut # (Auto) 9.5 H Lymph # (Auto) 2.1 [place] # (Auto) 1.3 H Eos # (Auto) 0.5 Baso # (Auto) 0.1 Immature Gran % 0.9 Nucleated RBC % 0.0 Immature Gran # 0.12 Nucleated RBCs # 0.00 ABG pH ABG pCO2 ABG pO2 ABG HCO3 ABG Total CO2 ABG O2 Saturation ABG Base Excess Sodium 136 Potassium 5.0 Chloride 101 Carbon Dioxide 24 Anion Gap 16.0 H BUN 45 H Creatinine 0.90 GFR Calculation 101 BUN/Creatinine Ratio 50.00 H Glucose 257 H POC Glucose 207 H Calculated Osmolality 292.0 Calcium 9.0 Phosphorus Magnesium Prealbumin 05/18/17 05/18/17 05/18/17 13:48 13:45 11:24 WBC RBC Hgb Hct MCV MCH MCHC RDW Plt Count MPV Neut % (Auto) Lymph % (Auto) [place] % (Auto) Eos % (Auto) Baso % (Auto) Neut # (Auto) Lymph # (Auto) [place] # (Auto) Eos # (Auto) Baso # (Auto) Immature Gran % Nucleated RBC % Immature Gran # Nucleated RBCs # ABG pH 7.414 ABG pCO2 42.5 ABG pO2 149.0 H ABG HCO3 26.5 H ABG Total CO2 24.8 ABG O2 Saturation 99.1 ABG Base Excess 2.4 Sodium Potassium Chloride Carbon Dioxide Anion Gap BUN Creatinine GFR Calculation BUN/Creatinine Ratio Glucose POC Glucose 301 H 234 H Calculated Osmolality Calcium Phosphorus Magnesium Prealbumin DS: Provider Date of admission: 05/13/17 01:07 Primary care physician: . No PCP Attending physician on admission: Curt Armando MD Consults: 05/13/17 01:13 Consult to Wound Care - [place] [CONS] Routine Reason for Wound Care: Wound Care Management 05/13/17 14:03 Consult to Dietitian [CONS] Routine Reason for Dietitian: TF-Initiate/Manage Discharging clinician: Bola Crowder MD Expected date of discharge: 05/19/17
[2017-05-19 11:36] VITALS: BP 142/88
== END 2017-05-19 13:30 | DRG 137 ==
LOC: EDUNIT# → EDBD → N.ED 21:40 → N.EDINP 05-13 01:07 → SUATTDRO 05-13 01:07 → N.2E 05-13 02:20
PROVIDERS: ADMIT Internal Medicine; ATTEND Internal Medicine Geriatric Medicine

== ENCOUNTER 2017-06-22 07:29 | Inpatient (IN) ==
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
[2017-06-22 08:54] LABS: Basophils % 0.3 % (0.0-0.8); Eosinophils # 0.3 10*3/uL (0.0-0.87); Eosinophils % 2.4 % (0.00-10.9); Hematocrit 21.1 VOL% (35.7-47.0); Immature Granulocytes % 0.5 %; Immature Granulocytes Absolute 0.06 #; Lymphocytes % 16.9 % (21.3-54.2); Mean Corpuscular HGB Conc 29.4 GM/DL (32-36); Mean Corpuscular Hemoglobin 26 PG (27-34); Mean Corpuscular Volume 87.2 FL (87-102); Mean Platelet Volume 10.3 FL (9.6-12.0); Monocytes % 8.4 % (1.7-12.7); Neutrophils # 8.6 10*3/uL (1.4-7.4); Neutrophils % 71.5 % (38.7-73.9); Platelet Count 753 T/CUMM (130-400); Red Blood Count 2.42 MC/CUMM (3.8-5.5); Red Cell Distribution Width 18.6 % (9.3-17.3)
[2017-06-22 08:59] LABS: Hemoglobin 6.2 GM/DL (12.0-16.0)
[2017-06-22 09:01] LABS: Apearance,Urine CLOUDY (Clear); Bacteria,Urine Occasional /HPF (Few); Bilirubin,Urine Negative (Negative); Blood, Urine Negative (Negative); Glucose,Urine (UA) Negative (Negative); Ketones,Urine Negative (Negative); Nitrite,Urine Positive (Negative); Protein,Urine 100 MG/DL; RBC,Urine 3 /HPF (0-4); Squamous Epithelial Cell,Urine Occasional /HPF (0-10); Urine Color Yellow (Yellow); Urine Specific Gravity 1.013 (1.001-1.035); Urine Urobilinogen < 2.0 EU/DL (0.2-1.0); WBC,Urine 77 /HPF (0-6)
[2017-06-22] MEDS ORDERED: cefTRIAXone 1,000 MG in SODIUM CHLORIDE 0.9% 100 ML IV STA (09:08)
[2017-06-22] MEDS ORDERED: SODIUM CHLORIDE 0.9% 250 ML IV PRN (09:19)
[2017-06-22 09:20] LABS: Alanine Aminotransferase 16 U/L (13-56); Albumin 2.3 G/DL (3.4-5.0); Alkaline Phosphatase 163 U/L (45-117); Aspartate Amino Transferase 49 U/L (0-37); Bilirubin,Total < 0.39 MG/DL (0.2-1.0); Blood Urea Nitrogen 39 MG/DL (7-18); Glucose 217 MG/DL (74-106); Osmolality,Calculated 283.2 MOS/KG (273-304); Potassium 5.2 MMOL/L (3.5-5.1); Sodium 134 MMOL/L (136-145); Total Protein 7.7 G/DL (6.4-8.3)
[2017-06-22 09:21] LABS: Calcium 9.4 MG/DL (8.5-10.1)
[2017-06-22] MEDS ORDERED: cefTRIAXone 1,000 MG VIAL ONE (09:31)
--- NOTE | 2017-06-22 09:45 | XRay Report ---
XR chest 1V portable Indication: Abnormal breath sounds. Comparison: Chest x-ray 05/20/2017 Technique: Portable AP chest was performed. Findings: Tracheostomy tube is stable. There is been interval increase in parenchymal opacity in the left lung base that may be accentuated by the Limited degree of inspiration present. Coarsened interstitial markings otherwise present are stable in appearance. Chest is otherwise stable. Impression: 1. Infectious process and/or atelectatic change within the left lung base could be considered. 06/22/2017 9:13 AM PROCEDURE INTERPRETED AT [facility] DEPARTMENT OF RADIOLOGY Final Report Signed by: Dr. Alfonso Grace
[2017-06-22] MEDS: SODIUM HYPOCHLORITE 0.25% IRRIG 473 ML BOTTLE TOP SCH ×2 (09:55→21:29)
[2017-06-22] MEDS ORDERED: ALBUTEROL 2.5 MG/3 ML NEB RESP TX PRN (10:18)
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
[2017-06-22] MEDS ORDERED: hydrALAZINE 20 MG/1 ML VIAL IV PRN (10:22)
[2017-06-22] MEDS ORDERED: DEXTROSE 50% 25 GM/50 ML SYRINGE IV PRN (10:23)
[2017-06-22] MEDS ORDERED: GLUCAGON 1 MG VIAL IM PRN (10:23)
[2017-06-22] MEDS: SODIUM CHLORIDE 0.9% 1,000 ML IV SCH ×2 (10:27→19:16)
[2017-06-22] MEDS: LEVOFLOXACIN INJ 750 MG in PREMIX 1 EACH IV SCH (11:01)
[2017-06-22] MEDS: PIPERACILLIN/TAZOBACTAM 3,375 MG in SODIUM CHLORIDE 0.9% 100 ML IV SCH ×2 (11:06→19:41)
[2017-06-22] MEDS: INSULIN REGULAR 100 UNIT/ML SUBCUT SCH ×2 (11:30→19:16)
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
[2017-06-22] MEDS: ALBUTEROL/IPRATROPIUM 3 ML NEB RESP TX SCH ×2 (14:00→20:04)
[2017-06-22] MEDS: VANCOMYCIN INJ 1,750 MG in SODIUM CHLORIDE 0.9% 500 ML IV SCH ×2 (19:40→23:29)
[2017-06-22] MEDS ORDERED: SODIUM HYPOCHLORITE 0.25% IRRIG 473 ML BOTTLE TOP SCH (21:00)
[2017-06-22] MEDS: PANTOPRAZOLE 40 MG VIAL IV SCH (21:29)
[2017-06-23] MEDS: ALBUTEROL/IPRATROPIUM 3 ML NEB RESP TX SCH ×4 (00:08→19:33)
[2017-06-23] MEDS: INSULIN REGULAR 100 UNIT/ML SUBCUT SCH ×4 (00:36→17:57)
[2017-06-23] MEDS: SODIUM CHLORIDE 0.9% 1,000 ML IV SCH ×2 (02:00→16:52)
[2017-06-23] MEDS: PIPERACILLIN/TAZOBACTAM 3,375 MG in SODIUM CHLORIDE 0.9% 100 ML IV SCH ×3 (02:00→16:52)
[2017-06-23 05:25] LABS: Calcium 9.3 MG/DL (8.5-10.1); Potassium 4.3 MMOL/L (3.5-5.1)
[2017-06-23 06:35] LABS: Basophils # 0.1 10*3/uL (0.0-0.2); Basophils % 0.5 % (0.0-0.8); Eosinophils # 0.2 10*3/uL (0.0-0.87); Eosinophils % 1.8 % (0.00-10.9); Hematocrit 28.9 VOL% (35.7-47.0); Hemoglobin 8.8 GM/DL (12.0-16.0); Immature Granulocytes % 0.7 %; Immature Granulocytes Absolute 0.08 #; Lymphocytes # 1.2 10*3/uL (1.4-4.0); Lymphocytes % 10.6 % (21.3-54.2); Mean Corpuscular HGB Conc 30.4 GM/DL (32-36); Mean Corpuscular Hemoglobin 26 PG (27-34); Mean Corpuscular Volume 86.8 FL (87-102); Mean Platelet Volume 10.4 FL (9.6-12.0); Monocytes # 0.8 10*3/uL (0.11-0.8); Neutrophils # 9.1 10*3/uL (1.4-7.4); Neutrophils % 79.4 % (38.7-73.9); Platelet Count 614 T/CUMM (130-400); Red Blood Count 3.33 MC/CUMM (3.8-5.5); Red Cell Distribution Width 16.8 % (9.3-17.3); White Blood Count 11.5 T/CUMM (4-12)
[2017-06-23 06:50] LABS: INR 1.1; PT Patient Result 11.4 SECS
[2017-06-23 07:11] LABS: Hypochromasia 1+
[2017-06-23 07:12] LABS: Microcytosis 1+; Platelet Estimate Increased
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
--- NOTE | 2017-06-23 08:17 | XRay Report ---
History: Shortness of breath Date: 06/23/2017 Study: Chest x-ray AP portable Comparison exam: 06/22/2017 The tracheostomy tube is stable in position. The cardiomediastinal silhouette is stable. The pulmonary vasculature is not engorged. There is some minor platelike subsegmental atelectasis in the lung bases. There is improved aeration in the lung bases to a mild degree since the previous day. There is no new or worsening process. There is no pleural effusion. Osseous structures are unchanged. Impression: Mildly improved aeration in the lung bases. No adverse interval change PROCEDURE INTERPRETED AT [facility] DEPARTMENT OF RADIOLOGY Final Report Signed by: Dr. Scarlett Monahan
[2017-06-23] MEDS: PANTOPRAZOLE 40 MG VIAL IV SCH ×2 (08:41→21:53)
[2017-06-23] MEDS: SODIUM HYPOCHLORITE 0.25% IRRIG 473 ML BOTTLE TOP SCH ×2 (08:42→21:55)
--- NOTE | 2017-06-23 08:53 | Hospitalist Progress Note ---
Assessment and Plan - Time spent with patient Time spent with patient: Greater than 30 minutes (1) Hypotension Status: Acute Current Visit: No (2) UTI (urinary tract infection) Status: Acute Current Visit: Yes Qualifiers: Urinary tract infection type: acute cystitis (3) History of stroke Status: Chronic Current Visit: No (4) Decubital ulcer Status: Acute Current Visit: Yes Qualifiers: Pressure ulcer location: other site Pressure ulcer stage: stage 4 Qualified Code(s): L89.894 - Pressure ulcer of other site, stage 4 (5) PEG tube malfunction Status: Acute Current Visit: Yes (6) Guaiac positive stools Status: Acute Current Visit: Yes (7) Anemia Status: Acute Assessment and plan: Status post 2 units of PRBC, H&H currently stable. She is planned for EGD and PEG tube placement by gastroenterology Continue IV Protonix twice daily for now. Surgery has seen and scheduled for debridement of her sacral decubital ulcer which appears to be infected Continue IV antibiotics Change IV fluid to D5 saline at 80 cc/h for calories until her PEG tube is replaced and feeding resumed, monitor fingerstick glucose. Monitor input and output. DVT prophylaxis: SCD hose Current Visit: No Qualifiers: Anemia type: unspecified type Qualified Code(s): D64.9 - Anemia, unspecified Hospitalist: Subjective Interval history: Her blood pressures have improved significantly since she received IV fluid boluses and antibiotics started. No fevers reported. Her hematocrit has remained stable after PRBC transfusion. Has been evaluated by gastroenterology and surgery and the outlined plans are noted. Urine output is good Exam - Constitutional Vitals: Period Temp Pulse Resp BP Sys/Monroe Pulse Ox Last 24 Hr 96.2 F-97.0 F 83-101 12-30 98-166/46-98 99-100 Exam: General appearance: normal weight - Head Head exam: Present: normal inspection, normocephalic, atraumatic - Eye Eye exam: Present: EOMI. Absent: conjunctival injection Pupils: Present: MELISSA, normal accommodation - ENT ENT exam: Present: normal external ear exam (Ulceration noted to the left lower ear) - Neck Neck exam: Present: normal inspection. Absent: lymphadenopathy, meningismus, thyromegaly - Respiratory Respiratory exam: Present: rhonchi, other. Absent: rales, stridor, wheezes - Cardiovascular Cardiovascular exam: Present: regular rate and rhythm. Absent: carotid bruit, diastolic murmur, gallop, JVD, rubs, systolic murmur - GI/Abdominal GI/Abdominal exam: Present: normal bowel sounds, other - Extremities Exam Extremities exam: Present: normal inspection, normal capillary refill, full ROM. Absent: edema - Back Exam Back exam: Present: normal inspection - Neurological Exam Neurological exam: Present: oriented X3, altered - Psychiatric Psychiatric exam: Present: flat affect - Skin Skin exam: Present: normal color, dry, other (Decubitus ulcerations noted to the sacrum and right upper hip) Results - Labs CBC & BMP: 06/23/17 05:55 06/23/17 04:35 Lab Results: I have reviewed the past 24 hour labs - Diagnostic Findings Procedure: Chest x-ray: image reviewed by me, report reviewed by me Quality Measures - VTE Contraindication to Pharmacological VTE Prophylaxis: High Risk of Bleeding
[2017-06-23] MEDS ORDERED: DEXTROSE 5% 1,000 ML IV SCH (09:00)
[2017-06-23] MEDS: LEVOFLOXACIN INJ 750 MG in PREMIX 1 EACH IV SCH (11:00)
[2017-06-23] MEDS: VANCOMYCIN INJ 1,750 MG in SODIUM CHLORIDE 0.9% 500 ML IV SCH (12:12)
[2017-06-23] MEDS ORDERED: BUPIVACAINE 0.25% /EPI 10 ML VIAL ONE ×2 (13:02)
[2017-06-23] MEDS ORDERED: ONDANSETRON 4 MG/2 ML VIAL IV PRN (13:35)
[2017-06-23] MEDS ORDERED: CHLORHEXIDINE 4% SOLN 118 ML BOTTLE TOP ONE (13:45)
[2017-06-23] MEDS ORDERED: SKIN HEALING OINT (AQUAPHOR) 50 GM TUBE TOP PRN (13:45)
--- NOTE | 2017-06-23 13:52 | Operative Note ---
Date of procedure: 06/23/17 Pre-op diagnosis: Sacral decubitus ulcer stage IV Post-op diagnosis: same Procedure: Operative note: Preoperative diagnosis: Sacral decubitus ulcer stage IV Postop diagnosis: Same Procedure: Excisional debridement of skin subtenons tissue muscle and bone and fascia of the sacral decubitus ulcer Surgeon Dr. Gonzales Key Holder Isela Arredondo, LAKISHA ACNP Anesthesia was managed anesthetic care with local Brief history: 57-year-old -[place] female who is in the ICU for sepsis and hypotension due to possible GI bleed. She has had a previous CVA and we were assessed see her for a large sacral decubitus ulcer with a good bit of necrotic tissue in the bed at this time. I felt is important go ahead and get this debrided to get this process under control to ensure that this was not source for any sepsis or problems that she is having. Procedure: With patient in the right decubitus position prepped and draped in sterile fashion timeout and antibiotics completed we have a sacral decubitus ulcer with a necrotic portion of skin and wall of the ulcer on the right side as well as a good bit of central necrotic tissue present. The pre-debridement ulcer is 8 x 3.5 x 2 cm in size. At that point we took a knife and I begin begin to trim the necrotic skin edges around the base of the wound especially on the right side. I then took the car electrocautery and went down into the base on this right side to remove a good bit of necrotic subcutaneous tissue and muscle in this area to get that is clean as I could possibly get it. The base had a good bit of necrotic fascial tissue that we debrided with scissors and then electrocautery to finished debriding that as well as a little bit of bone in the lower portion on the left side was removed at this time. I debrided most of this fascial tissue then some muscle up on the left side of this ulcer to clean that age up as best I could get it. We had good bleeding from all edges at this time at which time we used electrocauterization control bleeding. Once I felt like I had what I can feel and looks like most of the necrotic tissue removed then we washed irrigated with saline solution. We now have an ulcer that is 8.5 x 8 x 4 cm in size. At that point we dressed it with the Dakin's wet fluffs at this time along with a bulky dressing took patient recovery room. Estimated blood loss 20 cc Sponge count correct 2 Drains none Complications none Condition stable Anesthesia: MAC, local (0.25% Marcaine with epinephrine mixed [id number] 1% Xylocaine plain) Surgeon / Physician: Uriah Gonzales Key Holder: Isela Arredondo Estimated blood loss: other (20 cc) Specimens: other (Tissue and bone for cultures) Condition: stable Disposition: ICU Results - Labs CBC & BMP: 06/23/17 05:55 06/23/17 04:35 Discharge Plan - Discharge Medications No Action levETIRAcetam [Levetiracetam] 1,000 mg PEG BID amLODIPine [Norvasc] 5 mg PEG DAILY Insulin Lispro [HumaLOG] 0 unit SUBCUT ACHS Scopolamine 1.5 mg Patch [Transderm Scop 1.5 mg/72 hr Patch] 1 patch TRANSDERM Q3DAY #10 patch Metoprolol Tartrate Tab [Lopressor Tab] 25 mg PO BID tablet Skin Healing Oint (Aquaphor) [Aquaphor] 1 applic TOP PRN PRN applic PRN Reason: Dry Skin Pantoprazole Sodium [Protonix] 40 mg PEG BID Acetaminophen 650 mg PEG Q4H PRN PRN Reason: Fever, Headache, Mild Pain Sodium Hypochlorite 0.25% Irr [Dakins 1/2 Strength 0.25% Soln] 1 applic TOP Q8H PRN PRN Reason: STAGE 4 COCCYX WOUND Ferrous Sulfate Liquid [Feosol Liquid] 1.25 ml PEG TID hydrALAZINE TAB [Apresoline Tab] 50 mg PEG TID Aspirin Chew Tab 81 mg PEG DAILY Insulin Glargine [Lantus] 28 unit SUBCUT BEDTIME unit Ascorbic Acid Tab [Vitamin C Tab] 500 mg PEG BID Silver Sulfadiazine 1% Cream [Silvadene] 1 applic TOP DAILY Sodium Hypochlorite 0.25% Irr [Dakins 1/2 Strength 0.25% Soln] 1 applic TOP DAILY - Follow Up or Referral - Forms/Instructions
--- NOTE | 2017-06-23 14:23 | Operative Note ---
Date of procedure: 06/23/17 Pre-op diagnosis: Anemia, fracture PEG tube Post-op diagnosis: other (This patient has relatively normal-appearing stomach and duodenum, no gross evidence of esophagitis or bleeding source. Biopsies pending to look for Helicobacter pylori and celiac sprue. Successful PEG tube replacement with a Ponsky pull type standard PEG tube given the patient's evaluation during endoscopy this was not difficult to add on.) Procedure: PROCEDURE: Esophagogastroduodenoscopy (EGD) with cold biopsy for pathology , Ponsky pull-type PEG tube replacement REFERRING PHYSICIAN: Chau Cortez MD INDICATIONS: This is a patient with anemia which is thought to be multifactorial but also presents with guaiac positive stool and a fractured PEG tube requiring replacement. The prior H&P was reviewed and interrim changes are as noted: No change from GI consultation yesterday ENDOSCOPIST: David Duenas MD ENDOSCOPE: Olympus Video 100 System upper endoscope ASA CLASS: 4 EXAM: CV: regular rate and rhythm respiratory: Clear without wheezes abdominal: active bowel sounds MEDICATION: Per nursing anesthesia protocol, see their notes PROCEDURE: After discussion of the potential risks and benefits of upper endoscopy, the informed consent was obtained. The patient was then placed in the left lateral decubitus position where sedation was achieved as noted above. Esophageal intubation was performed without difficulty, and the endoscope was advanced through the esophagus, stomach and duodenum. A slow withdrawal was then performed with retroflexion in the stomach for careful inspection of the incisura angularis, fundus and cardia. The scope was then returned to a neutral position and withdrawn through the esophagus. The patient tolerated the procedure well and without complication. BIOPSIES: Gastric antrum/body, duodenum PHOTOGRAPHS: Obtained FINDINGS: Hypopharynx and Larynx: Normal Esohagoscopy Upper and middle thirds: Normal Lower third normal Esophogastric junctions: Normal Gastroscopy: Cardia/Fundus: 2 cm hiatal hernia Body: PEG tube noted in the greater curvature, this was removed with forceful traction and a new Ponsky pull type PEG tube advanced after wire passed through the mature gastrocutaneous fistula into the stomach and captured with a snare. This was pulled through the mouth into the stomach and the flange approximated against the wall with bolster advanced to skin line at 3 cm. Antrum and pylorus very mild patchy gastritis noted Duodenoscopy: Bulb normal-appearing, biopsied for sprue Second and third portions: Normal-appearing, biopsied for sprue IMPRESSION: This patient has relatively normal-appearing stomach and duodenum , no gross evidence of esophagitis or bleeding source. Biopsies pending to look for Helicobacter pylori and celiac sprue. Successful PEG tube replacement with a Ponsky pull type standard PEG tube given the patient's evaluation during endoscopy this was not difficult to add on. RECOMMENDATIONS: Follow up for biopsy results in 1-2 weeks by phone [phone] Continue anti-gastroesophageal reflux measures (avoid carbonated and acidic beverages, avoid eating within 2 hours of bedtime, avoid tight fitting clothing , and elevate the front bed posts 6 inches prior to sleeping. We will likely hold off on colonoscopy given this patient's recent sacral debridement. Continue to watch her as she is advanced in her diet. Anesthesia: MAC Surgeon / Physician: David Duenas Estimated blood loss: minimal Specimens: other (Gastric antrum/body, duodenum) Condition: stable Disposition: post procedure unit ([facility]I. Suite) Results - Labs CBC & BMP: 06/23/17 05:55 06/23/17 04:35 Discharge Plan - Discharge Medications No Action levETIRAcetam [Levetiracetam] 1,000 mg PEG BID amLODIPine [Norvasc] 5 mg PEG DAILY Insulin Lispro [HumaLOG] 0 unit SUBCUT ACHS Scopolamine 1.5 mg Patch [Transderm Scop 1.5 mg/72 hr Patch] 1 patch TRANSDERM Q3DAY #10 patch Metoprolol Tartrate Tab [Lopressor Tab] 25 mg PO BID tablet Skin Healing Oint (Aquaphor) [Aquaphor] 1 applic TOP PRN PRN applic PRN Reason: Dry Skin Pantoprazole Sodium [Protonix] 40 mg PEG BID Acetaminophen 650 mg PEG Q4H PRN PRN Reason: Fever, Headache, Mild Pain Sodium Hypochlorite 0.25% Irr [Dakins 1/2 Strength 0.25% Soln] 1 applic TOP Q8H PRN PRN Reason: STAGE 4 COCCYX WOUND Ferrous Sulfate Liquid [Feosol Liquid] 1.25 ml PEG TID hydrALAZINE TAB [Apresoline Tab] 50 mg PEG TID Aspirin Chew Tab 81 mg PEG DAILY Insulin Glargine [Lantus] 28 unit SUBCUT BEDTIME unit Ascorbic Acid Tab [Vitamin C Tab] 500 mg PEG BID Silver Sulfadiazine 1% Cream [Silvadene] 1 applic TOP DAILY Sodium Hypochlorite 0.25% Irr [Dakins 1/2 Strength 0.25% Soln] 1 applic TOP DAILY - Follow Up or Referral - Forms/Instructions
[2017-06-23 14:27] LABS: Hematocrit 26.6 VOL% (35.7-47.0); Hemoglobin 8.3 GM/DL (12.0-16.0)
--- NOTE | 2017-06-23 14:27 | Anesthesia Post-Op ---
Anesthesia Post OP - Post Ansesthetic Evaluation Patient seen in post op: Yes Resp: within normal limits CV: within normal limits Mental: within normal limits Temp: within normal limits [id number]: within normal limits Nausea and Vomiting: within normal limits Pain: within normal limits
--- NOTE | 2017-06-23 14:27 | Gastrointestinal Progress Note ---
Assessment and Plan (1) Anemia Status: Acute Assessment and plan: Patient's hematocrit is down from her previous 38% back on 06/24/16 to her current 21.1% now. It is unclear whether this may be due to malnutrition, blood loss in sync with the sacral ulcer, upper GI bleeding or perhaps a lower GI bleed. She is definitely guaiac positive and so we will need to get some sort of GI workup. Arrange for upper endoscopy and will plan on replacing her PEG tube during that procedure tomorrow, provided her healthcare surrogate agrees to proceed. Risks include but are not limited to: Bleeding, infection, perforation, cardiac and pulmonary compromise. I suspect she may have a ulceration in her stomach on the contralateral wall from the PEG tube, this can produce bleeding over time although is less likely to produce this change while taking iron and only minimal amounts of aspirin 81 mg per day in the face of pantoprazole 40 mg per PEG tube twice daily. Further recommendations post endoscopy with PEG replacement. 06/23/17--upper endoscopy performed this morning, this did not show any gross evidence of ulcerations or erosions or even AVMs or other bleeding source. Biopsies were taken routinely of the stomach and duodenum but it is felt like most the patient's blood loss is likely multifactorial due to nutrition, bleeding from the decubitus, possibly due to his slight degree from the gastritis. Continue proton pump inhibitors once daily but we will likely hold off on colonoscopy given this patient's multiple reasons for anemia. Current Visit: No Qualifiers: Anemia type: unspecified type Qualified Code(s): D64.9 - Anemia, unspecified (2) Attention to gastrostomy tube Status: Acute Assessment and plan: We will likely patient place a [id number] PEG tube to ensure that this stays in place. Further recommendations post placement tomorrow. She will need to remain off her aspirin--he does not appear that she was on any Plavix or other types of anticoagulants. 06/23/17--the PEG tube has been replaced. Current Visit: Yes (3) Guaiac positive stools Status: Acute Assessment and plan: Further evaluation tomorrow. 06/23/17--the reason for the patient to have guaiac positive stools aside from mild gastritis seen. 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 She is uncooperative with any sort of commands and needs to have PEG tube. I strongly suspect she will need this for nutritional purposes for the rest of her life. Further recommendations post endoscopy with placement of PEG tube. 06/23/17--the patient's dysphagia is likely secondary to her multiple strokes that she has had in the past. She is not able to take any sustenance without the use of a PEG tube. This was replaced today. Current Visit: Yes Gastroenterology - PN: Subj Interval history: Patient is nonverbal. Exam (Progress Note) - Constitutional Vitals: Period Temp Pulse Resp BP Sys/Monroe Pulse Ox Last 24 Hr 96.2 F-96.9 F 89-102 12-26 123-166/66-134 99-100 General appearance: over weight - Head Head exam: Present: normal inspection - Eye Eye exam: Present: EOMI Pupils: Present: MELISSA - Respiratory Respiratory exam: Present: clear to auscultation bilaterally. Absent: stridor, wheezes - Cardiovascular Cardiovascular exam: Present: regular rate and rhythm - GI/Abdominal GI/Abdominal exam: Present: normal bowel sounds, distended, soft, other (PEG tube fractured in the left upper quadrant, basically "broken in two"). Absent: tenderness, rebound - Back Exam Back exam: Present: other (Large sacral decubitus. This patient is recently undergone surgery in the last half hour) - Neurological Exam Neurological exam: Present: alert, altered - Skin Skin exam: Present: warm Results - Labs CBC & BMP: 06/23/17 05:55 06/23/17 04:35
--- NOTE | 2017-06-23 15:56 | Post Interventional Procedure ---
Pre-op diagnosis: UTI Post-op diagnosis: same Procedure: PICC LUE Flouroscopy: 0.2 min Radiologist: Curt Kennedy Anesthesia: local Specimens: none sent Estimated blood loss: none Complications: none Condition: stable
--- NOTE | 2017-06-23 15:59 | Interventional Radiology Rpt ---
IR PICC line insertion, US guide vascular access Indication: UTI. Large decubitus ulcer. Long-term IV antibiotics necessary. PICC LINE Description: A formal timeout was performed. Maximum sterile barrier technique was used. Sonographic evaluation of the left upper extremity demonstrates patent and compressible brachial vein. The upper arm was prepped and draped in sterile fashion. 3 cc 1% lidocaine was administered subcutaneously. Under sonographic guidance, a micropuncture needle was advanced into the vein. A captured sonographic image documents the position of the needle. Needle was exchanged over a wire for a peel-away sheath. A dual lumen power PICC, cut to 43 cm, was advanced over the wire until the tip was at the RA-SVC junction. The position of the catheter was confirmed with fluoroscopic guidance and an image stored in PACS. The wire and sheath were removed. Both ports of the PICC were aspirated and flushed with heparinized saline. The device was secured with a StatLock. Fluoroscopy: 0.2 minutes, one image. Impression: PICC line ready for immediate use. Routine catheter care. PROCEDURE INTERPRETED AT [facility] DEPARTMENT OF RADIOLOGY Final Report Signed by: Curt Kennedy M.D.
[2017-06-24] MEDS: ALBUTEROL/IPRATROPIUM 3 ML NEB RESP TX SCH ×4 (00:11→19:35)
[2017-06-24] MEDS: VANCOMYCIN INJ 1,750 MG in SODIUM CHLORIDE 0.9% 500 ML IV SCH ×2 (00:16→10:46)
[2017-06-24] MEDS: INSULIN REGULAR 100 UNIT/ML SUBCUT SCH ×4 (00:36→18:54)
[2017-06-24] MEDS: SODIUM CHLORIDE 0.9% 1,000 ML IV SCH ×5 (02:40→22:42)
[2017-06-24] MEDS: PIPERACILLIN/TAZOBACTAM 3,375 MG in SODIUM CHLORIDE 0.9% 100 ML IV SCH ×3 (02:40→17:57)
[2017-06-24 06:31] LABS: Basophils % 0.4 % (0.0-0.8); Eosinophils # 0.2 10*3/uL (0.0-0.87); Eosinophils % 1.7 % (0.00-10.9); Hematocrit 22.7 VOL% (35.7-47.0); Hemoglobin 7.1 GM/DL (12.0-16.0); Immature Granulocytes % 0.5 %; Immature Granulocytes Absolute 0.05 #; Lymphocytes % 10.2 % (21.3-54.2); Mean Corpuscular HGB Conc 31.3 GM/DL (32-36); Mean Corpuscular Hemoglobin 27 PG (27-34); Mean Corpuscular Volume 86.6 FL (87-102); Monocytes # 0.8 10*3/uL (0.11-0.8); Monocytes % 7.8 % (1.7-12.7); Neutrophils # 7.8 10*3/uL (1.4-7.4); Neutrophils % 79.4 % (38.7-73.9); Platelet Count 525 T/CUMM (130-400); Red Blood Count 2.62 MC/CUMM (3.8-5.5); Red Cell Distribution Width 16.7 % (9.3-17.3); White Blood Count 9.8 T/CUMM (4-12)
[2017-06-24 06:44] LABS: INR 1.2; PT Patient Result 12.9 SECS
[2017-06-24 07:13] LABS: Albumin 1.9 G/DL (3.4-5.0); Bilirubin,Total 0.5 MG/DL (0.2-1.0); Calcium 8.5 MG/DL (8.5-10.1); Potassium 3.6 MMOL/L (3.5-5.1); Total Protein 6.1 G/DL (6.4-8.3)
[2017-06-24 07:19] LABS: Hypochromasia 2+; Microcytosis 1+; Target Cells Slight
[2017-06-24 07:20] LABS: Platelet Estimate Increased; Spherocytes Few
[2017-06-24] MEDS ORDERED: SILVER NITRATE STICK 1 EACH TOP ONE (07:52)
[2017-06-24] MEDS ORDERED: SODIUM CHLORIDE 0.9% 250 ML IV PRN (08:32)
--- NOTE | 2017-06-24 08:32 | Pulmonology Progress Note ---
Pulmonary - PN: Subj Interval history: The patient is a 57-year-old black lady that has multi-infarct dementia. She has a tracheostomy tube. She came in because her PEG tube had eroded and was exchanged yesterday. She has been found to have some GI bleeding also. She did get transfused a couple units of blood but her hematocrit is still around 22. She does have positive stool for blood. Otherwise she seems stable and is breathing comfortably. Her vital signs have been stable Exam (Progress Note) - Constitutional Vitals: Period Temp Pulse Resp BP Sys/Monroe Pulse Ox Last 24 Hr 96.5 F-97.0 F 78-99 12-26 99-159/53-134 99-100 Exam: General appearance: no distress, over weight, other (She is reasonably comfortable on trach collar.) - Head Head exam: Present: normal inspection, normocephalic - Eye Eye exam: Present: EOMI. Absent: scleral icterus Pupils: Present: MELISSA - ENT ENT exam: Present: normal exam - Neck Neck exam: Present: other (She has a tracheostomy tube in place). Absent: lymphadenopathy, thyromegaly - Respiratory Respiratory exam: Present: She has good breath sounds bilaterally without any definite wheezing or rhonchi. - Cardiovascular Cardiovascular exam: Present: regular rate and rhythm. Absent: gallop, systolic murmur - GI/Abdominal GI/Abdominal exam: Present: normal bowel sounds, soft, other (She has a PEG tube in place.). She has a BMS in place and did have positive stool for blood. Absent: organomegaly, tenderness - Extremities Exam Extremities exam: Absent: calf tenderness, edema, no signs of phlebitis. - Neurological Exam Neurological exam: Present: altered (She cannot communicate) - Psychiatric Psychiatric exam: Absent: anxious - Skin Skin exam: Present: warm, dry Results - Labs CBC & BMP: 06/24/17 06:20 06/24/17 06:20 Assessment and Plan (1) Acute UTI Status: Acute Assessment and plan: Patient has pyuria and will be treated for urinary tract infection. Her urine culture does have gram-negative rods present. Current Visit: No (2) Anemia Status: Acute Assessment and plan: Patient came in with a hemoglobin of 6.2 and has been transfused to a hemoglobin of 8.8. She still has some mild bleeding and her hematocrit is 22.7. Current Visit: No Qualifiers: Anemia type: unspecified type Qualified Code(s): D64.9 - Anemia, unspecified (3) Decubital ulcer Status: Acute Assessment and plan: Patient will continue to require treatment for decubitus ulcers. Current Visit: Yes Qualifiers: Pressure ulcer location: other site Pressure ulcer stage: stage 4 Qualified Code(s): L89.894 - Pressure ulcer of other site, stage 4 (4) PEG tube malfunction Status: Acute Assessment and plan: The patient had her PEG tube exchanged yesterday and is doing okay. Current Visit: Yes (5) Guaiac positive stools Status: Acute Assessment and plan: Patient is being evaluated by GI. 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 She has a chronic tracheostomy tube. She seems to be breathing fairly well at the present time. She will continue with respiratory therapy. Overall her respiratory status has been stable. Current Visit: Yes
--- NOTE | 2017-06-24 08:55 | General Surgery Progress Note ---
Assessment and Plan - Time spent with patient Time spent with patient: Greater than 30 minutes (1) Sacral decubitus ulcer, stage IV Status: Acute Assessment and plan: 06/24/2017. Sacral decubitus ulcer stage IV, status post excisional debridement. The oozing has been addressed, and Dr. Franco will recheck this later on today. We will plan to transfuse just to be sure to keep her counts up. We will initiate local care, keep offloaded, and concentrate on good nutrition. Current Visit: Yes Exam - Constitutional Vitals: Period Temp Pulse Resp BP Sys/Monroe Pulse Ox Last 24 Hr 96.5 F-97.0 F 78-99 12-26 99-159/53-134 99-100 General appearance: no acute distress - Respiratory Respiratory exam: Present: rhonchi (Coarse rhonchi) - Back Exam Back exam: Present: other (Sacral wound with continued persistent oozing. There is a moderately large amount of bloody drainage on the postop dressing, and this has been changed overnight by the ICU nurses. There is some clot present and while there is no active area of bleeding, there are 2 areas on the right lateral edge of the wound that are continuously oozing bright red blood. The base of the wound is clean and dry sacral bone. There is no necrotic tissue , no bleeding from the skin edges. H&H has dropped overnight to 06/14. With the ICU nurse is present to assist me, I took silver nitrate applicators 4 and was able to locate 3 separate areas of bleeding along the right lateral edge of the wound and using combination of direct pressure and direct visualization isolate these areas and chemically cauterized these with silver nitrate. After this, the area was cleaned with Dakin and packed with dry cell AG.) Results - Labs CBC & BMP: 06/24/17 06:20 06/24/17 06:20 Lab Results: I have reviewed the past 24 hour labs (Noted.) Quality Measures - VTE Contraindication to Pharmacological VTE Prophylaxis: High Risk of Bleeding
[2017-06-24] MEDS: PANTOPRAZOLE 40 MG VIAL IV SCH ×2 (09:08→22:40)
[2017-06-24] MEDS: SODIUM HYPOCHLORITE 0.25% IRRIG 473 ML BOTTLE TOP SCH ×2 (09:09→22:42)
[2017-06-24] MEDS: LEVOFLOXACIN INJ 750 MG in PREMIX 1 EACH IV SCH (10:50)
--- NOTE | 2017-06-24 13:15 | Gastrointestinal Progress Note ---
Assessment and Plan (1) Anemia Status: Acute Assessment and plan: Patient's hematocrit is down from her previous 38% back on 06/24/16 to her current 21.1% now. It is unclear whether this may be due to malnutrition, blood loss in sync with the sacral ulcer, upper GI bleeding or perhaps a lower GI bleed. She is definitely guaiac positive and so we will need to get some sort of GI workup. Arrange for upper endoscopy and will plan on replacing her PEG tube during that procedure tomorrow, provided her healthcare surrogate agrees to proceed. Risks include but are not limited to: Bleeding, infection, perforation, cardiac and pulmonary compromise. I suspect she may have a ulceration in her stomach on the contralateral wall from the PEG tube, this can produce bleeding over time although is less likely to produce this change while taking iron and only minimal amounts of aspirin 81 mg per day in the face of pantoprazole 40 mg per PEG tube twice daily. Further recommendations post endoscopy with PEG replacement. 06/23/17--upper endoscopy performed this morning, this did not show any gross evidence of ulcerations or erosions or even AVMs or other bleeding source. Biopsies were taken routinely of the stomach and duodenum but it is felt like most the patient's blood loss is likely multifactorial due to nutrition, bleeding from the decubitus, possibly due to his slight degree from the gastritis. Continue proton pump inhibitors once daily but we will likely hold off on colonoscopy given this patient's multiple reasons for anemia. 06/24/17--patient's upper endoscopy yesterday was essentially normal without any evidence of bleeding source. Patient's hematocrit is dropped down to 22%. This is accompanied by a voluminous bleed from her debrided wound site. Given the above scenario and the comment from the patient's son that she has experienced multiple workups for GI bleeding source, will simply sign off the case at this time please let me know if she has blood coming from her rectum or is vomiting blood in the future. Orders to use the PEG tube have been written. Dietary has been consulted. Current Visit: No Qualifiers: Anemia type: unspecified type Qualified Code(s): D64.9 - Anemia, unspecified (2) Attention to gastrostomy tube Status: Acute Assessment and plan: We will likely patient place a [id number] PEG tube to ensure that this stays in place. Further recommendations post placement tomorrow. She will need to remain off her aspirin--he does not appear that she was on any Plavix or other types of anticoagulants. 06/23/17--the PEG tube has been replaced. 06/24/17--The PEG tube was replaced yesterday, we are about to start tube feeds. Again dietary has been consulted. Current Visit: Yes (3) Guaiac positive stools Status: Acute Assessment and plan: Further evaluation tomorrow. 06/23/17--No reason for the patient to have guaiac positive stools aside from mild gastritis seen today. 06/24/17--No gross evidence of rectal bleeding, patient's hematocrit is dropped but likely due to blood loss from the decubitus ulcer that was debrided yesterday. I will be signing off the case at this time as the patient appears to be stable from a GI standpoint with replaced PEG tube. 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 She is uncooperative with any sort of commands and needs to have PEG tube. I strongly suspect she will need this for nutritional purposes for the rest of her life. Further recommendations post endoscopy with placement of PEG tube. 06/23/17--the patient's dysphagia is likely secondary to her multiple strokes that she has had in the past. She is not able to take any sustenance without the use of a PEG tube. This was replaced today. 06/24/17--The patient is doing well with her PEG tube, we can restart feeding at this time. Current Visit: Yes Gastroenterology - PN: Subj Interval history: Tube feeds have now been restarted. No rectal bleeding although voluminous bleeding for the patient's debridement site. Exam (Progress Note) - Constitutional Vitals: Period Temp Pulse Resp BP Sys/Monroe Pulse Ox Last 24 Hr 96.5 F-97.3 F 78-99 10-27 99-159/52-82 97-100 General appearance: no acute distress - Head Head exam: Present: normocephalic - Eye Eye exam: Present: EOMI - Respiratory Respiratory exam: Present: clear to auscultation bilaterally - GI/Abdominal GI/Abdominal exam: Present: normal bowel sounds, soft, other (PEG tube spins well and has no erythema around it-- I do not see any drainage.). Absent: tenderness, rebound - Extremities Exam Extremities exam: Present: edema - Neurological Exam Neurological exam: Present: alert, altered (Does not follow commands, appears to have an expressive aphasia), other (Paraplegic) - Psychiatric Psychiatric exam: Present: other (Unable to assess) - Skin Skin exam: Present: warm Results - Labs CBC & BMP: 06/24/17 06:20 06/24/17 06:20
[2017-06-24] MEDS: HYDROmorphone 2 MG/1 ML VIAL IV PRN (13:34)
--- NOTE | 2017-06-24 15:25 | Hospitalist Progress Note ---
Assessment and Plan (1) Anemia Status: Acute Assessment and plan: Due to acute blood loss. GI source initially suspected. Most recently- had some oozing from the sacral wound. 2 units of PRBCs ordered Current Visit: Yes Qualifiers: Anemia type: unspecified type Qualified Code(s): D64.9 - Anemia, unspecified (2) Sacral decubitus ulcer, stage IV Status: Acute Assessment and plan: Status post debridement by Dr. Gonzales. continue antibiotics Current Visit: Yes (3) Acute UTI Status: Acute Assessment and plan: d/c levaquin. start rocephin Current Visit: Yes (4) History of stroke Status: Chronic Current Visit: Yes (5) History of hypertension Status: Chronic Current Visit: Yes (6) Positive blood cultures Status: Acute Assessment and plan: final pending. continue antibiotics. continue vanco, zosyn, levaquin Current Visit: Yes (7) Guaiac positive stools Status: Acute Current Visit: Yes (8) Dysphasia as late effect of cerebrovascular accident (CVA) Status: Chronic Current Visit: Yes Hospitalist: Subjective Interval history: Patient seen and examined. No acute events overnight. Case discussed with nursing staff. Labs reviewed. 2 units of packed red blood cells ordered. The patient had a bloody dressing change involving her sacral decubitus ulcer. No blood in the BMS bag. PEG tube replaced yesterday. Exam - Constitutional Vitals: Period Temp Pulse Resp BP Sys/Monroe Pulse Ox Last 24 Hr 96.5 F-97.3 F 78-106 10-27 99-159/52-82 97-100 Exam: Constitutional System: Mild distress. No tremulousness. Appears chronically ill. Head: Normocephalic, atraumatic. Ears, Nose and Throat System: No pain or tenderness. No epistaxis or discharge Eyes System: Pupils equal, round, and reactive. Extraocular muscles intact. Neck: Supple, without adenopathy, No jugular venous distention. No thyromegaly, neck mass, or prior surgery apparent. Tracheostomy in place. Respiratory System: Chest clear to auscultation. Cardiovascular System: Heart with regular rate and rhythm. No murmur. GI System: Abdomen soft, nontender. Normo active bowel sounds present. PEG tube in place. Musculoskeletal System: limbs with no pedal edema. Full distal pulses. Results - Labs CBC & BMP: 08/01/17 06:20 06/24/17 06:20 Lab Results: I have reviewed the past 24 hour labs Quality Measures - VTE Contraindication to Pharmacological VTE Prophylaxis: High Risk of Bleeding
[2017-06-24] MEDS: cefTRIAXone 1,000 MG in SODIUM CHLORIDE 0.9% 100 ML IV SCH (17:10)
[2017-06-25] MEDS: INSULIN REGULAR 100 UNIT/ML SUBCUT SCH ×4 (00:12→18:23)
[2017-06-25] MEDS: ALBUTEROL/IPRATROPIUM 3 ML NEB RESP TX SCH ×4 (01:44→20:30)
[2017-06-25] MEDS: PIPERACILLIN/TAZOBACTAM 3,375 MG in SODIUM CHLORIDE 0.9% 100 ML IV SCH ×3 (02:23→18:29)
[2017-06-25 06:29] LABS: Basophils % 0.4 % (0.0-0.8); Eosinophils # 0.1 10*3/uL (0.0-0.87); Eosinophils % 0.7 % (0.00-10.9); Hematocrit 26.5 VOL% (35.7-47.0); Hemoglobin 8.5 GM/DL (12.0-16.0); Immature Granulocytes % 0.6 %; Immature Granulocytes Absolute 0.05 #; Lymphocytes # 1.2 10*3/uL (1.4-4.0); Lymphocytes % 13.5 % (21.3-54.2); Mean Corpuscular HGB Conc 32.1 GM/DL (32-36); Mean Corpuscular Hemoglobin 27 PG (27-34); Mean Corpuscular Volume 84.1 FL (87-102); Mean Platelet Volume 9.3 FL (9.6-12.0); Monocytes # 0.8 10*3/uL (0.11-0.8); Monocytes % 8.5 % (1.7-12.7); Neutrophils # 6.9 10*3/uL (1.4-7.4); Neutrophils % 76.3 % (38.7-73.9); Platelet Count 504 T/CUMM (130-400); Red Blood Count 3.15 MC/CUMM (3.8-5.5); Red Cell Distribution Width 17.3 % (9.3-17.3); White Blood Count 9.1 T/CUMM (4-12)
[2017-06-25 06:39] LABS: INR 1.2
[2017-06-25 07:00] LABS: Alanine Aminotransferase 12 U/L (13-56); Albumin 1.8 G/DL (3.4-5.0); Alkaline Phosphatase 153 U/L (45-117); Aspartate Amino Transferase 14 U/L (0-37); Bilirubin,Total < 0.39 MG/DL (0.2-1.0); Blood Urea Nitrogen 9 MG/DL (7-18); Calcium 8.7 MG/DL (8.5-10.1); Glucose 74 MG/DL (74-106); Osmolality,Calculated 287.6 MOS/KG (273-304); Potassium 3.6 MMOL/L (3.5-5.1); Sodium 146 MMOL/L (136-145); Total Protein 5.9 G/DL (6.4-8.3)
[2017-06-25 07:04] LABS: Hypochromasia 2+; Microcytosis Slight
[2017-06-25] MEDS: SODIUM CHLORIDE 0.9% 1,000 ML IV SCH ×3 (07:10→18:30)
[2017-06-25 07:13] LABS: Magnesium 1.9 MG/DL (1.8-2.4); Phosphorous 2.7 MG/DL (2.5-4.9)
[2017-06-25] MEDS: SODIUM HYPOCHLORITE 0.25% IRRIG 473 ML BOTTLE TOP SCH ×2 (08:18→22:03)
[2017-06-25] MEDS: PANTOPRAZOLE 40 MG VIAL IV SCH ×2 (08:18→22:01)
--- NOTE | 2017-06-25 08:39 | Pulmonology Progress Note ---
Pulmonary - PN: Subj Interval history: The patient is a 57-year-old black lady that has multi-infarct dementia. She has a tracheostomy tube. She came in because her PEG tube had eroded and was exchanged yesterday. She has been found to have some GI bleeding also. She did get transfused a couple units of blood but her hematocrit is still around 22. She does have positive stool for blood. Yesterday apparently she had significant bleeding from her sacral decubitus. She did require more transfusions. She still is not having any trouble with her breathing. She does seem to be a little more stable. Exam (Progress Note) - Constitutional Vitals: Period Temp Pulse Resp BP Sys/Monroe Pulse Ox Last 24 Hr 96.8 F-97.8 F 85-117 10-34 106-161/61-91 97-100 Exam: General appearance: no distress, over weight, other (She is reasonably comfortable on trach collar. She has no respiratory distress.) - Head Head exam: Present: normal inspection, normocephalic - Eye Eye exam: Present: EOMI. Absent: scleral icterus Pupils: Present: MELISSA - ENT ENT exam: Present: normal exam - Neck Neck exam: Present: other (She has a tracheostomy tube in place). Absent: lymphadenopathy, thyromegaly - Respiratory Respiratory exam: Present: She has good breath sounds bilaterally without any definite wheezing or rhonchi. - Cardiovascular Cardiovascular exam: Present: regular rate and rhythm. Absent: gallop, systolic murmur - GI/Abdominal GI/Abdominal exam: Present: normal bowel sounds, soft, other (She has a PEG tube in place.). She has a BMS in place and did have positive stool for blood. Absent: organomegaly, tenderness. She has a large decubitus that was bleeding yesterday. - Extremities Exam Extremities exam: Absent: calf tenderness, edema, no signs of phlebitis. - Neurological Exam Neurological exam: Present: altered (She cannot communicate) - Psychiatric Psychiatric exam: Absent: anxious - Skin Skin exam: Present: warm, dry Results - Labs CBC & BMP: 06/25/17 04:00 06/25/17 06:00 Assessment and Plan (1) Acute UTI Status: Acute Assessment and plan: Patient has pyuria and will be treated for urinary tract infection. Her urine culture does have gram-negative rods present. She is on Rocephin now. Current Visit: Yes (2) Anemia Status: Acute Assessment and plan: Patient came in with a hemoglobin of 6.2 and has been transfused to a hemoglobin of 8.8. She is a little more stable and her hematocrit is 26.5. Current Visit: Yes Qualifiers: Anemia type: unspecified type Qualified Code(s): D64.9 - Anemia, unspecified (3) Decubital ulcer Status: Acute Assessment and plan: Patient will continue to require treatment for decubitus ulcers. She apparently has significant bleeding from her decubitus ulcer yesterday. Current Visit: Yes Qualifiers: Pressure ulcer location: other site Pressure ulcer stage: stage 4 Qualified Code(s): L89.894 - Pressure ulcer of other site, stage 4 (4) PEG tube malfunction Status: Acute Assessment and plan: The patient had her PEG tube exchanged yesterday and is doing okay. Current Visit: Yes (5) Guaiac positive stools Status: Acute Assessment and plan: Patient is being evaluated by GI. Her GI bleeding seems to be better. Her hematocrit is 26.5 Current Visit: Yes (6) Dysphasia as late effect of cerebrovascular accident (CVA) Status: Chronic Assessment and plan: Patient is quite debilitated by previous CVAs and has multi-infarct dementia. She has a chronic tracheostomy tube. She seems to be breathing fairly well at the present time. She will continue with respiratory therapy. Overall her respiratory status has been stable. Current Visit: Yes
--- NOTE | 2017-06-25 09:10 | Hospitalist Progress Note ---
Assessment and Plan (1) Anemia Status: Acute Assessment and plan: Due to acute blood loss. GI source initially suspected. Most recently- had some oozing from the sacral wound. 2 units of PRBCs given yesterday and hemoglobin stable at 8.5 Current Visit: Yes Qualifiers: Anemia type: unspecified type Qualified Code(s): D64.9 - Anemia, unspecified (2) Sacral decubitus ulcer, stage IV Status: Acute Assessment and plan: Status post debridement by Dr. Gonzales. continue antibiotics Current Visit: Yes (3) Acute UTI Status: Acute Assessment and plan: d/c levaquin. start rocephin Current Visit: Yes (4) History of stroke Status: Chronic Current Visit: Yes (5) History of hypertension Status: Chronic Current Visit: Yes (6) Positive blood cultures Status: Acute Assessment and plan: final pending. continue antibiotics. continue vanco, zosyn, levaquin Current Visit: Yes (7) Guaiac positive stools Status: Acute Current Visit: Yes (8) Dysphasia as late effect of cerebrovascular accident (CVA) Status: Chronic Current Visit: Yes Hospitalist: Subjective Interval history: Patient seen and examined. No acute events overnight. Case discussed with nursing staff. Labs reviewed. Wound cultures with gram-negative rods and urine culture with Morganella morganii and gram-positive cocci. Sputum culture with gram-negative rods. Wound culture from 06/22/2017 shows multiple organisms including Morganella morganii and other gram-negative rods gram-positive cocci Exam - Constitutional Vitals: Period Temp Pulse Resp BP Sys/Monroe Pulse Ox Last 24 Hr 96.8 F-97.8 F 85-117 10-34 106-161/61-91 97-100 Exam: Constitutional System: Mild distress. No tremulousness. Appears chronically ill. Head: Normocephalic, atraumatic. Ears, Nose and Throat System: No pain or tenderness. No epistaxis or discharge Eyes System: Pupils equal, round, and reactive. Extraocular muscles intact. Neck: Supple, without adenopathy, No jugular venous distention. No thyromegaly, neck mass, or prior surgery apparent. Tracheostomy in place. Respiratory System: Chest clear to auscultation. Cardiovascular System: Heart with regular rate and rhythm. No murmur. GI System: Abdomen soft, nontender. Normo active bowel sounds present. PEG tube in place. Tolerating tube feeds Musculoskeletal System: limbs with no pedal edema. Full distal pulses. Results - Labs CBC & BMP: 06/25/17 04:00 06/25/17 06:00 Lab Results: I have reviewed the past 24 hour labs Quality Measures - VTE Contraindication to Pharmacological VTE Prophylaxis: High Risk of Bleeding
--- NOTE | 2017-06-25 09:25 | Pathology Report from [facility] ---
[facility] – [place] ACCESSION # : [id number] PATIENT NAME : Al Loera ORDERING DR : David Duenas MD CLINICAL HX: GI Bleed POST-OP DX: #1 R/O Sprue #2 GI Bleed SPECIMEN INFO: #1 Duodenum biopsies #2 BLUE GROSS DESCRIPTION: #1 Received in formalin labeled with the patients name AL LOERA and #1 consists of four felipe portions of tissue measuring up to 0.2 cm. Submitted in cassette #1.#2 Received in formalin labeled with the patients name AL LOERA and #2 consists of six felipe portions of tissue measuring up to 0.4 cm. Submitted in cassette #2. DIAGNOSIS FOR AL LOERA: #1 DUODENAL BIOPSIES: Acute and chronic duodenitis with subtotal villous atrophy and mild intraepithelial lymphocytosis (See Note).#2 GASTRIC BIOPSIES: Chronic antral gastritis. H. pylori not seen on H&E or special stain with appropriate control.NOTE: Intraepithelial lymphocytosis is etiologically nonspecific and can be associated with celiac disease, gluten-resistant sprue, various viral infections (including cytomegalovirus), Crohns Disease, and microscopic (lymphocytic and collagenous) colitis, among others, including medication effects. In particular, olmesartan (Benicar) use has recently been correlated with a sprue-like syndrome. COLLECTED DATE: 06/23/2017 [facility] REPORT DATE: 06/24/2017 ELECTRONICALLY SIGNED BY: Rudolph Olsen M.D. 06/24/2017 - 9:52:25 [facility]
--- NOTE | 2017-06-25 12:59 | General Surgery Progress Note ---
Assessment and Plan (1) Decubital ulcer Status: Acute Assessment and plan: Impression: Decubitus ulcer stage IV sacrum Secondary diagnoses 1. Bedridden CVA patient 2. Possible GI bleed with some hypotension. 3. Questionable septic changes present. Plan: Debridement of sacral decubitus ulcer 06/25/2017 Patient seems a little more stable at this point time. There is still some little bit of blood tingeing into the wound bed but seemed to be much less with no drainage on the dressings much. Will continue present wound care and observe closely. Current Visit: Yes Qualifiers: Pressure ulcer location: other site Pressure ulcer stage: stage 4 Qualified Code(s): L89.894 - Pressure ulcer of other site, stage 4 Subjective Patient reports: Present: afebrile, other (Minimal drainage or bleeding from the sacral ulcer) Exam - Constitutional Vitals: Period Temp Pulse Resp BP Sys/Monroe Pulse Ox Last 24 Hr 96.8 F-97.8 F 101-117 12-34 115-161/65-91 97-100 General appearance: mild distress - Head Head exam: Present: normal inspection - ENT ENT exam: Present: normal exam - Neck Neck exam: Present: normal inspection - Respiratory Respiratory exam: Present: rales - Cardiovascular Cardiovascular exam: Present: RRR - GI/Abdominal GI/Abdominal exam: Present: hypoactive bowel sounds, soft - Extremities Exam Extremities exam: Present: normal inspection - Back Exam Back exam: Present: other (Sacral decubitus ulcer has a little bit of oozing steel but not significant seems to be under control as I can tell) - Neurological Exam Neurological exam: Present: altered - Skin Skin exam: Present: normal color, warm, dry Results - Labs CBC & BMP: 06/25/17 04:00 06/25/17 06:00 Lab Results: I have reviewed the past 24 hour labs Quality Measures - VTE Contraindication to Pharmacological VTE Prophylaxis: High Risk of Bleeding
[2017-06-25] MEDS: cefTRIAXone 1,000 MG in SODIUM CHLORIDE 0.9% 100 ML IV SCH (17:48)
[2017-06-25] MEDS: HYDROmorphone 2 MG/1 ML VIAL IV PRN (20:21)
[2017-06-26] MEDS: PIPERACILLIN/TAZOBACTAM 3,375 MG in SODIUM CHLORIDE 0.9% 100 ML IV SCH ×3 (00:51→17:28)
[2017-06-26] MEDS: INSULIN REGULAR 100 UNIT/ML SUBCUT SCH ×4 (01:25→18:12)
[2017-06-26] MEDS: ALBUTEROL/IPRATROPIUM 3 ML NEB RESP TX SCH ×4 (01:28→19:52)
[2017-06-26] MEDS: SODIUM CHLORIDE 0.9% 1,000 ML IV SCH ×2 (06:42→12:52)
[2017-06-26 07:09] LABS: Basophils % 0.5 % (0.0-0.8); Eosinophils # 0.2 10*3/uL (0.0-0.87); Hematocrit 26.8 VOL% (35.7-47.0); Hemoglobin 8.2 GM/DL (12.0-16.0); Immature Granulocytes % 0.7 %; Immature Granulocytes Absolute 0.05 #; Lymphocytes # 1.3 10*3/uL (1.4-4.0); Lymphocytes % 16.5 % (21.3-54.2); Mean Corpuscular HGB Conc 30.6 GM/DL (32-36); Mean Corpuscular Hemoglobin 26 PG (27-34); Mean Corpuscular Volume 85.4 FL (87-102); Mean Platelet Volume 9.6 FL (9.6-12.0); Monocytes # 0.6 10*3/uL (0.11-0.8); Monocytes % 8.2 % (1.7-12.7); Neutrophils # 5.5 10*3/uL (1.4-7.4); Neutrophils % 71.1 % (38.7-73.9); Platelet Count 522 T/CUMM (130-400); Red Blood Count 3.14 MC/CUMM (3.8-5.5); Red Cell Distribution Width 17.4 % (9.3-17.3); White Blood Count 7.7 T/CUMM (4-12)
[2017-06-26 07:47] LABS: Albumin 1.8 G/DL (3.4-5.0); Bilirubin,Total 0.5 MG/DL (0.2-1.0); Calcium 8.9 MG/DL (8.5-10.1); Osmolality,Calculated 288.7 MOS/KG (273-304); Potassium 3.6 MMOL/L (3.5-5.1)
[2017-06-26] MEDS: PANTOPRAZOLE 40 MG VIAL IV SCH ×2 (08:03→21:16)
[2017-06-26] MEDS: SODIUM HYPOCHLORITE 0.25% IRRIG 473 ML BOTTLE TOP SCH ×2 (08:07→21:18)
[2017-06-26 08:14] LABS: Band Neutrophils 1 % (0-10); Eosinophils 4 % (0-10); Lymphocytes 17 % (20-55); Segmented Neutrophils 71 % (50-85); Total Cells Counted 100
[2017-06-26 08:19] LABS: Hypochromasia Slight; Platelet Estimate Increased
[2017-06-26] MEDS ORDERED: VANCOMYCIN INJ 1,750 MG in SODIUM CHLORIDE 0.9% 500 ML IV SCH (09:00)
--- NOTE | 2017-06-26 09:08 | Pulmonology Progress Note ---
Pulmonary - PN: Subj Interval history: The patient is a 57-year-old black lady that has multi-infarct dementia. She has a tracheostomy tube. She came in because her PEG tube had eroded and was exchanged yesterday. She has been found to have some GI bleeding also. She did get transfused a couple units of blood but her hematocrit is still around 22. She does have positive stool for blood. Yesterday apparently she had significant bleeding from her sacral decubitus. She did require more transfusions. Now her bleeding seems to be under good control. She is getting wound care. She has not had any respiratory distress. She is resting comfortably in bed. Exam (Progress Note) - Constitutional Vitals: Period Temp Pulse Resp BP Sys/Monroe Pulse Ox Last 24 Hr 96.2 F-97.8 F 103-115 16-34 127-174/69-87 95-100 Exam: General appearance: no distress, over weight, other (She is reasonably comfortable on trach collar. She will look around and respond a little. She has no respiratory distress.) - Head Head exam: Present: normal inspection, normocephalic - Eye Eye exam: Present: EOMI. Absent: scleral icterus Pupils: Present: MELISSA - ENT ENT exam: Present: normal exam - Neck Neck exam: Present: other (She has a tracheostomy tube in place). Absent: lymphadenopathy, thyromegaly - Respiratory Respiratory exam: Present: She has good breath sounds bilaterally without any definite wheezing or rhonchi. - Cardiovascular Cardiovascular exam: Present: regular rate and rhythm. Absent: gallop, systolic murmur - GI/Abdominal GI/Abdominal exam: Present: normal bowel sounds, soft, other (She has a PEG tube in place.). Her sacral wound is wrapped. - Extremities Exam Extremities exam: Absent: calf tenderness, edema, no signs of phlebitis. - Neurological Exam Neurological exam: Present: altered (She cannot communicate) - Psychiatric Psychiatric exam: Absent: anxious - Skin Skin exam: Present: warm, dry Results - Labs CBC & BMP: 06/26/17 06:03 06/26/17 06:03 Assessment and Plan (1) Acute UTI Status: Acute Assessment and plan: Patient has pyuria and will be treated for urinary tract infection. Her urine culture does have gram-negative rods present. She is on Rocephin now. Current Visit: Yes (2) Anemia Status: Acute Assessment and plan: Patient has an hematocrit 26.8 and is stable now. Current Visit: Yes Qualifiers: Anemia type: unspecified type Qualified Code(s): D64.9 - Anemia, unspecified (3) Decubital ulcer Status: Acute Assessment and plan: Patient will continue to require treatment for decubitus ulcers. Her wounds are little more stable now Current Visit: Yes Qualifiers: Pressure ulcer location: other site Pressure ulcer stage: stage 4 Qualified Code(s): L89.894 - Pressure ulcer of other site, stage 4 (4) PEG tube malfunction Status: Acute Assessment and plan: The patient had her PEG tube exchanged yesterday and is doing okay. Current Visit: Yes (5) Guaiac positive stools Status: Resolved Assessment and plan: Patient is being evaluated by GI. Her GI bleeding seems to be better. Her hematocrit is 26.5 Current Visit: No (6) Dysphasia as late effect of cerebrovascular accident (CVA) Status: Chronic Assessment and plan: Patient is quite debilitated by previous CVAs and has multi-infarct dementia. She has a chronic tracheostomy tube. She seems to be breathing fairly well at the present time. She has not had any respiratory problems. She will continue with present therapy. I will drop off for now,Thanks Current Visit: Yes
[2017-06-26] MEDS: cefTRIAXone 1,000 MG in SODIUM CHLORIDE 0.9% 100 ML IV SCH ×2 (09:12→15:53)
--- NOTE | 2017-06-26 11:07 | General Surgery Progress Note ---
Assessment and Plan (1) Decubital ulcer Status: Acute Assessment and plan: Impression: Decubitus ulcer stage IV sacrum Secondary diagnoses 1. Bedridden CVA patient 2. Possible GI bleed with some hypotension. 3. Questionable septic changes present. Plan: Debridement of sacral decubitus ulcer 06/25/2017 Patient seems a little more stable at this point time. There is still some little bit of blood tingeing into the wound bed but seemed to be much less with no drainage on the dressings much. Will continue present wound care and observe closely. 06/26/2017 Patient is doing well at this time with no evidence of bleeding from the sacral wound at this point. Hematocrit is stable at 26. Tissue wound cultures are back and there is no strong need for the vancomycin. The ampicillin and Rocephin covering the organism that is growing out of the wound. Current Visit: Yes Qualifiers: Pressure ulcer location: other site Pressure ulcer stage: stage 4 Qualified Code(s): L89.894 - Pressure ulcer of other site, stage 4 Subjective Patient reports: Present: no new complaints, afebrile Exam - Constitutional Vitals: Period Temp Pulse Resp BP Sys/Monroe Pulse Ox Last 24 Hr 96.2 F-97.8 F 103-115 16-27 127-174/69-87 95-100 General appearance: mild distress - Head Head exam: Present: normal inspection - ENT ENT exam: Present: normal exam - Neck Neck exam: Present: normal inspection, other (Trach in place) - Respiratory Respiratory exam: Present: rales, rhonchi - Cardiovascular Cardiovascular exam: Present: RRR - GI/Abdominal GI/Abdominal exam: Present: hypoactive bowel sounds, soft. Absent: distended, tenderness - Extremities Exam Extremities exam: Present: normal inspection - Back Exam Back exam: Present: other (Sacral ulcer is clean there is no evidence of any bleeding. No more necrotic tissue seen but very little granulating tissue present.) - Neurological Exam Neurological exam: Present: altered - Skin Skin exam: Present: normal color, warm, dry Results - Labs CBC & BMP: 06/26/17 06:03 06/26/17 06:03 Lab Results: I have reviewed the past 24 hour labs Quality Measures - VTE Contraindication to Pharmacological VTE Prophylaxis: High Risk of Bleeding
--- NOTE | 2017-06-26 11:55 | Ultrasound Report ---
History: Bilateral upper extremity swelling Date: 06/26/2017 Study: Bilateral upper extremity color-flow venous Doppler study Comparison exam: No previous Color Doppler, wave form analysis, and compression analysis of the deep veins of both upper extremities from the internal jugular and subclavian vein level to the radial and ulnar vein level shows that the veins are readily compressible. There is no abnormal intraluminal material to suggest thrombus. Waveform analysis is unremarkable. Ultrasound images were captured and archived Impression: Normal bilateral upper extremity color flow venous Doppler study. No evidence of acute DVT PROCEDURE INTERPRETED AT [facility] DEPARTMENT OF RADIOLOGY Final Report Signed by: Dr. Scarlett Monahan
--- NOTE | 2017-06-26 13:58 | Hospitalist Progress Note ---
Assessment and Plan (1) Anemia Status: Acute Assessment and plan: Due to acute blood loss. GI source initially suspected. Most recently- had some oozing from the sacral wound. She is s/p 2 units of PRBCs and hemoglobin stable at 8.2 Current Visit: Yes Qualifiers: Anemia type: unspecified type Qualified Code(s): D64.9 - Anemia, unspecified (2) Sacral decubitus ulcer, stage IV Status: Acute Assessment and plan: Status post debridement by Dr. Gonzales. continue antibiotics Current Visit: Yes (3) Acute UTI Status: Acute Assessment and plan: UC grew Morganella morganii and Enterococcus resistant to Levaquin. Continue IV Ceftriaxone Current Visit: Yes (4) History of stroke Status: Chronic Assessment and plan: Patient is in persistent vegetative state Current Visit: Yes (5) History of hypertension Status: Chronic Assessment and plan: stable Current Visit: Yes Hospitalist: Subjective Interval history: Patient was transferred from the unit yesterday. She remains in a vegetative state. Exam - Constitutional Vitals: Period Temp Pulse Resp BP Sys/Monroe Pulse Ox Last 24 Hr 96.2 F-98.0 F 99-115 12-24 127-174/69-87 95-100 General appearance: no acute distress, other (persistent vegetative state, trach in place) - Respiratory Respiratory exam: Present: clear to auscultation bilaterally - GI/Abdominal GI/Abdominal exam: Present: normal bowel sounds, other (peg tube in place) - Back Exam Back exam: Present: other (stage 4 decubitus ulcer) - Neurological Exam Neurological exam: Present: other (unresponsive) Results - Labs CBC & BMP: 06/26/17 06:03 06/26/17 06:03 Lab Results: I have reviewed the past 24 hour labs Quality Measures - VTE Contraindication to Pharmacological VTE Prophylaxis: High Risk of Bleeding
[2017-06-27] MEDS: INSULIN REGULAR 100 UNIT/ML SUBCUT SCH ×4 (00:22→18:53)
[2017-06-27] MEDS: ALBUTEROL/IPRATROPIUM 3 ML NEB RESP TX SCH ×4 (00:49→19:03)
[2017-06-27] MEDS: PIPERACILLIN/TAZOBACTAM 3,375 MG in SODIUM CHLORIDE 0.9% 100 ML IV SCH ×3 (01:32→18:53)
[2017-06-27 06:30] LABS: Basophils % 0.6 % (0.0-0.8); Eosinophils # 0.4 10*3/uL (0.0-0.87); Eosinophils % 5.7 % (0.00-10.9); Hematocrit 25.7 VOL% (35.7-47.0); Hemoglobin 7.9 GM/DL (12.0-16.0); Immature Granulocytes % 0.6 %; Immature Granulocytes Absolute 0.04 #; Lymphocytes # 1.6 10*3/uL (1.4-4.0); Lymphocytes % 23.4 % (21.3-54.2); Mean Corpuscular HGB Conc 30.7 GM/DL (32-36); Mean Corpuscular Hemoglobin 26 PG (27-34); Mean Corpuscular Volume 85.4 FL (87-102); Mean Platelet Volume 9.1 FL (9.6-12.0); Monocytes # 0.7 10*3/uL (0.11-0.8); Monocytes % 9.6 % (1.7-12.7); Neutrophils # 4.1 10*3/uL (1.4-7.4); Neutrophils % 60.1 % (38.7-73.9); Platelet Count 460 T/CUMM (130-400); Red Blood Count 3.01 MC/CUMM (3.8-5.5); Red Cell Distribution Width 17.4 % (9.3-17.3); White Blood Count 6.8 T/CUMM (4-12)
[2017-06-27 07:03] LABS: Calcium 8.6 MG/DL (8.5-10.1); Osmolality,Calculated 288.7 MOS/KG (273-304)
[2017-06-27] MEDS: cefTRIAXone 1,000 MG in SODIUM CHLORIDE 0.9% 100 ML IV SCH (08:40)
[2017-06-27] MEDS: PANTOPRAZOLE 40 MG VIAL IV SCH ×2 (08:42→23:28)
[2017-06-27] MEDS: SODIUM CHLORIDE 0.9% 1,000 ML IV SCH ×2 (08:44→16:29)
--- NOTE | 2017-06-27 09:29 | General Surgery Progress Note ---
Assessment and Plan (1) Decubital ulcer Status: Acute Assessment and plan: Impression: Decubitus ulcer stage IV sacrum Secondary diagnoses 1. Bedridden CVA patient 2. Possible GI bleed with some hypotension. 3. Questionable septic changes present. Plan: Debridement of sacral decubitus ulcer 06/25/2017 Patient seems a little more stable at this point time. There is still some little bit of blood tingeing into the wound bed but seemed to be much less with no drainage on the dressings much. Will continue present wound care and observe closely. 06/26/2017 Patient is doing well at this time with no evidence of bleeding from the sacral wound at this point. Hematocrit is stable at 26. Tissue wound cultures are back and there is no strong need for the vancomycin. The ampicillin and Rocephin covering the organism that is growing out of the wound. 06/27/2017 Patient is scheduled possibly go back to [facility]. He did continue present wound care to the sacral area. Appears to be stable but crits a little bit low and they plan to transfuse her before she goes back. Current Visit: Yes Qualifiers: Pressure ulcer location: other site Pressure ulcer stage: stage 4 Qualified Code(s): L89.894 - Pressure ulcer of other site, stage 4 Subjective Patient reports: Present: other Exam - Constitutional Vitals: Period Temp Pulse Resp BP Sys/Monroe Pulse Ox Last 24 Hr 96.2 F-98.0 F 84-106 12-24 137-167/73-87 96-100 General appearance: mild distress - Neck Neck exam: Present: normal inspection - Respiratory Respiratory exam: Present: rales - Cardiovascular Cardiovascular exam: Present: RRR - GI/Abdominal GI/Abdominal exam: Present: soft - Back Exam Back exam: Present: other (Sacral wound is stable) Results - Labs CBC & BMP: 06/27/17 06:13 06/27/17 06:13 Lab Results: I have reviewed the past 24 hour labs Quality Measures - VTE Contraindication to Pharmacological VTE Prophylaxis: High Risk of Bleeding
--- NOTE | 2017-06-27 10:10 | Hospitalist Progress Note ---
Assessment and Plan (1) Anemia Status: Acute Assessment and plan: Due to acute blood loss. GI source initially suspected. Most recently- had some oozing from the sacral wound. She is s/p 2 units of PRBCs and hemoglobin is slowly trending downwards to 7.9 today. Consider transfusing with 2more units of packed cells Current Visit: Yes Qualifiers: Anemia type: unspecified type Qualified Code(s): D64.9 - Anemia, unspecified (2) Sacral decubitus ulcer, stage IV Status: Acute Assessment and plan: Status post debridement by Dr. Gonzales. continue antibiotics Current Visit: Yes (3) Acute UTI Status: Acute Assessment and plan: UC grew Morganella morganii and Enterococcus resistant to Levaquin. Continue IV Ceftriaxone Current Visit: Yes (4) History of stroke Status: Chronic Assessment and plan: Patient is in persistent vegetative state Current Visit: Yes (5) History of hypertension Status: Chronic Assessment and plan: stable Current Visit: Yes Hospitalist: Subjective Interval history: Patient seen and still remains in a vegetative state. Her UE doppler showed no DVT. Exam - Constitutional Vitals: Period Temp Pulse Resp BP Sys/Monroe Pulse Ox Last 24 Hr 96.2 F-98.0 F 84-106 12-24 137-167/73-87 96-100 General appearance: no acute distress, other (trach in place) - Respiratory Respiratory exam: Present: decreased breath sounds - Cardiovascular Cardiovascular exam: Present: regular rate and rhythm - GI/Abdominal GI/Abdominal exam: Present: normal bowel sounds - Extremities Exam Extremities exam: Present: edema Results - Labs CBC & BMP: 06/27/17 06:13 06/27/17 06:13 Lab Results: I have reviewed the past 24 hour labs Quality Measures - VTE Contraindication to Pharmacological VTE Prophylaxis: High Risk of Bleeding
[2017-06-27] MEDS ORDERED: SODIUM CHLORIDE 0.9% 250 ML IV PRN (10:18)
[2017-06-27] MEDS: SODIUM HYPOCHLORITE 0.25% IRRIG 473 ML BOTTLE TOP SCH ×2 (14:51→23:29)
[2017-06-27 20:24] LABS: Hematocrit 33.4 VOL% (35.7-47.0)
[2017-06-27 20:25] LABS: Hemoglobin 10.9 GM/DL (12.0-16.0)
[2017-06-28] MEDS: ALBUTEROL/IPRATROPIUM 3 ML NEB RESP TX SCH ×3 (00:43→13:57)
[2017-06-28] MEDS: PIPERACILLIN/TAZOBACTAM 3,375 MG in SODIUM CHLORIDE 0.9% 100 ML IV SCH ×2 (02:41→08:42)
[2017-06-28] MEDS: INSULIN REGULAR 100 UNIT/ML SUBCUT SCH ×2 (03:37→05:55)
[2017-06-28] MEDS: SODIUM CHLORIDE 0.9% 1,000 ML IV SCH (03:38)
[2017-06-28 04:08] LABS: Basophils # 0.1 10*3/uL (0.0-0.2); Basophils % 0.6 % (0.0-0.8); Eosinophils # 0.5 10*3/uL (0.0-0.87); Eosinophils % 5.5 % (0.00-10.9); Hematocrit 33.6 VOL% (35.7-47.0); Hemoglobin 10.9 GM/DL (12.0-16.0); Immature Granulocytes % 0.5 %; Immature Granulocytes Absolute 0.04 #; Lymphocytes # 1.9 10*3/uL (1.4-4.0); Lymphocytes % 21.8 % (21.3-54.2); Mean Corpuscular HGB Conc 32.4 GM/DL (32-36); Mean Corpuscular Hemoglobin 28 PG (27-34); Mean Corpuscular Volume 85.9 FL (87-102); Mean Platelet Volume 9.3 FL (9.6-12.0); Monocytes # 0.8 10*3/uL (0.11-0.8); Monocytes % 9.2 % (1.7-12.7); Neutrophils # 5.3 10*3/uL (1.4-7.4); Neutrophils % 62.4 % (38.7-73.9); Platelet Count 460 T/CUMM (130-400); Red Blood Count 3.91 MC/CUMM (3.8-5.5); Red Cell Distribution Width 17.2 % (9.3-17.3); White Blood Count 8.5 T/CUMM (4-12)
[2017-06-28] MEDS: cefTRIAXone 1,000 MG in SODIUM CHLORIDE 0.9% 100 ML IV SCH (08:40)
[2017-06-28] MEDS: PANTOPRAZOLE 40 MG VIAL IV SCH (08:41)
--- NOTE | 2017-06-28 11:30 | Discharge Summary ---
<Fernando Barclay - Last Filed: 06/28/17 11:12> Hospital Course - Hospital Course Hospital Course: Ms. Grace is a chronically ill 57 year old female resident of [facility] who presented to the [place] ED on 06/22/2017 for further evaluation of a malfunctioning PEG tube. On admission, the patient's PEG tube was noted to have a large hole near the insertion site. In addition, the patient was noted to have a large malodorous sacral decubitus ulceration with a significant amount of slough tissue noted. During the ED encounter, the patient had a bowel movement which was noted to contain a large amount of blood. She was noted to have an H&H of 6.6 and 21.1. She was admitted to the hospital medicine service with consultation from GI ,general surgery and pulmonology. On 06/24/2017, the patient underwent excisional debridement of skin subtenons tissue muscle and bone and fascia of the Stage IV sacral decubitus ulcer per Dr. Gonzales. She also underwent an EGD with cold biopsy and PEG tube replacement on 06/24/2017. EGD revealed a relatively normal-appearing stomach and duodenum, no gross evidence of esophagitis or bleeding source. Dr. Duenas also proceeded with a successful PEG tube replacement with a Ponsky pull type standard PEG tube with no complications. During her course, patient was noted to have a bloody dressing change involving her sacral decubitus ulcer and subsequently had 1 unit of Red Blood Cells with another 5 units of Leukocyte-Reduced Red Blood Cells over the course of her stay and IV antibiotics. Pulmonology was consulted given the patient's history of pneumonia and tracheostomy tube. She did require some intermittent suctioning but is doing fairly will overall. In addition, the patient was treated for UTI which grew Morganella morganii and Enterococcus. She was treated with IV rocephin. Family has agreed to Hospice care so patient will be going back to [facility]. At this time, the patient has reached maximum benefit from hospitalization. - Time spent with patient Time with patient DS: Greater than 30 minutes Discharge Plan - Discharge Data Disposition: Hospice - Medical Facility - Discharge Medications New Albuterol Neb [Proventil Neb] 2.5 mg RESP TX RT Q6H PRN PRN Reason: Shortness Of Breath/Wheezing Albuterol/Ipratropium Neb [Duoneb] 3 ml RESP TX RT Q6H cefTRIAXone [Rocephin] 1,000 mg IV Q24H vial Skin Healing Oint (Aquaphor) [Aquaphor] 1 applic TOP PRN PRN applic PRN Reason: Dry Skin Sodium Hypochlorite 0.25% Irr [Dakins 1/2 Strength 0.25% Soln] 1 applic TOP BID applic HYDROcodone/ACETAMIN 5-325 [Aiken 5-325] 1 tablet PO Q4H #20 tablet Vancomycin Inj 1,750 mg IV Q48H vial Continue levETIRAcetam [Levetiracetam] 1,000 mg PEG BID amLODIPine [Norvasc] 5 mg PEG DAILY Insulin Lispro [HumaLOG] 0 unit SUBCUT ACHS Scopolamine 1.5 mg Patch [Transderm Scop 1.5 mg/72 hr Patch] 1 patch TRANSDERM Q3DAY #10 patch Metoprolol Tartrate Tab [Lopressor Tab] 25 mg PO BID tablet Skin Healing Oint (Aquaphor) [Aquaphor] 1 applic TOP PRN PRN applic PRN Reason: Dry Skin Pantoprazole Sodium [Protonix] 40 mg PEG BID Acetaminophen 650 mg PEG Q4H PRN PRN Reason: Fever, Headache, Mild Pain Sodium Hypochlorite 0.25% Irr [Dakins 1/2 Strength 0.25% Soln] 1 applic TOP Q8H PRN PRN Reason: STAGE 4 COCCYX WOUND Ferrous Sulfate Liquid [Feosol Liquid] 1.25 ml PEG TID hydrALAZINE TAB [Apresoline Tab] 50 mg PEG TID Insulin Glargine [Lantus] 28 unit SUBCUT BEDTIME unit Ascorbic Acid Tab [Vitamin C Tab] 500 mg PEG BID Silver Sulfadiazine 1% Cream [Silvadene] 1 applic TOP DAILY Sodium Hypochlorite 0.25% Irr [Dakins 1/2 Strength 0.25% Soln] 1 applic TOP DAILY Discontinued Aspirin Chew Tab 81 mg PEG DAILY - Follow Up or Referral - Forms/Instructions Exam - Constitutional Vitals: Period Temp Pulse Resp BP Sys/Monroe Pulse Ox Last 24 Hr 96.9 F-986 F 85-101 18-24 124-162/65-93 100-100 Discharge Results Procedures and tests throughout hospitalization: Pending Orders 06/23/17 10:55 Occult Blood, Stool Stat 06/28/17 13:30 Vancomycin,Trough Timed 06/30/17 04:00 Magnesium Routine Phosphorous Routine Prealbumin Routine Labs on day of discharge: Labs from last 24 hours 06/28/17 06/28/17 06/28/17 05:50 03:12 00:42 WBC 8.5 RBC 3.91 D Hgb 10.9 L Hct 33.6 L MCV 85.9 L MCH 28 MCHC 32.4 RDW 17.2 Plt Count 460 H MPV 9.3 L Neut % (Auto) 62.4 Lymph % (Auto) 21.8 Wilkin % (Auto) 9.2 Eos % (Auto) 5.5 Baso % (Auto) 0.6 Neut # (Auto) 5.3 Lymph # (Auto) 1.9 Wilkin # (Auto) 0.8 Eos # (Auto) 0.5 Baso # (Auto) 0.1 Immature Gran % 0.5 Nucleated RBC % 0.0 Immature Gran # 0.04 Nucleated RBCs # 0.00 Immature Plt Fraction 0.0 POC Glucose 153 H 124 H Blood Type Antibody Screen Crossmatch 06/27/17 06/27/17 06/27/17 20:15 18:11 12:15 WBC RBC Hgb 10.9 L D Hct 33.4 L MCV MCH MCHC RDW Plt Count MPV Neut % (Auto) Lymph % (Auto) Wilkin % (Auto) Eos % (Auto) Baso % (Auto) Neut # (Auto) Lymph # (Auto) Wilkin # (Auto) Eos # (Auto) Baso # (Auto) Immature Gran % Nucleated RBC % Immature Gran # Nucleated RBCs # Immature Plt Fraction POC Glucose 122 H 176 H Blood Type Antibody Screen Crossmatch 06/27/17 06:13 WBC RBC Hgb Hct MCV MCH MCHC RDW Plt Count MPV Neut % (Auto) Lymph % (Auto) Wilkin % (Auto) Eos % (Auto) Baso % (Auto) Neut # (Auto) Lymph # (Auto) Wilkin # (Auto) Eos # (Auto) Baso # (Auto) Immature Gran % Nucleated RBC % Immature Gran # Nucleated RBCs # Immature Plt Fraction POC Glucose Blood Type O NEGATIVE Antibody Screen Negative Crossmatch See Detail DS: Provider Date of admission: 06/22/17 09:22 Primary care physician: . No PCP Attending physician on admission: Chau Cortez MD Consults: 06/22/17 10:19 Consult to Physician [CONS] Routine Comment: Consulting Provider: Consult to Specialist Group: Pulmonology 06/22/17 10:20 Consult to Physician [CONS] Routine Comment: Consulting Provider: Uriah Gonzales Consulting Provider Notified: Yes When should Consulting Provider be notified: In am Consult to Specialist Group: Surgery Person Notified: anum Date Notified: 06/23/17 Time Notified: 08:45 06/23/17 08:02 Consult to Anesthesiology [CONS] Routine Consulting Provider: Reason for Anesthesiology: Pre-op Clearance 06/23/17 13:35 Consult to Wound Care - North [CONS] Routine Reason for Wound Care: Wound Care Management Consult Comment: sacral ulcer 06/24/17 13:01 Consult to Dietitian [CONS] Routine Reason for Dietitian: TF-Initiate/Manage Consult Comment: Tube feeding recommendations 06/27/17 11:20 Consult to Case Mgmt/Social Srvs [CONS] Routine Reason for Case Mgmt/Social Srvs: Discharge Planning Consult Comment: hospice Discharging clinician: Fernando MCLEAN Expected date of discharge: 06/28/17 <Betty Escalante - Last Filed: 06/28/17 11:57> Hospital Course - Time spent with patient Time with patient DS: Greater than 30 minutes (Time spent greater than 30mins) Diagnosis - Discharge Diagnosis (1) Anemia Status: Acute (2) Sacral decubitus ulcer, stage IV Status: Acute (3) Acute UTI Status: Acute (4) History of stroke Status: Chronic (5) History of hypertension Status: Chronic Discharge Plan - Discharge Data Condition at Discharge: Guarded Discharge Diet: advance to your usual diet Activity: resume usual activities as tolerated Exam - Constitutional General appearance: no acute distress, other (trach in place) - Respiratory Respiratory exam: Present: decreased breath sounds - Cardiovascular Cardiovascular exam: Present: regular rate and rhythm - GI/Abdominal GI/Abdominal exam: Present: normal bowel sounds, other (peg tube in place) - Extremities Exam Extremities exam: Present: other
[2017-06-28 12:36] VITALS: BP 160/90
--- NOTE | 2017-07-04 14:44 | Physician Query Form ---
CLICK EDIT DOCUMENT TO SELECT QUERY ANSWER --> OK --> SIGN Bonnie Dumont RN Clinical Relocation Services Specialist W) [phone] (f) [phone] [email or web address] PROVIDERS: Make your selection(s) from the choices in EACH section by typing an "x" and enter comments in the comment section. Please use your independent medical judgment in providing your response. This request does not imply that any particular answer is desired or expected. CLINICAL INDICATORS: (Providers should not edit this section) The below diagnosis was documented in the record, but is not consistently noted in subsequent documentation. Diagnosis: Pneumonia Based on documentation of "acute Community acquired pneumonia. Chest x-ray was significant for left lower lobe pneumonia" in H&P. Consult note states "She was here in March with a mild pneumonia. She actually has been doing fairly well with her breathing but does require suctioning". CXR report states "Infectious process and/or atelectatic change within the left lung base could be considered ". Pt. treated with IV Rocephin. Please clarify the following: ( ) The above diagnosis (Pneumonia) was monitored, evaluated, and/or treated and is a confirmed diagnosis (x ) The above diagnosis (Pneumonia) was ruled out ( ) Other, please specify: ( ) Clinically unable to determine COMMENTS: PLEASE ALSO DOCUMENT RESPONSE IN PROGRESS NOTES AND/OR DISCHARGE SUMMARY Use of terms such as suspected, likely, or probable (associated with a specific diagnosis that is being evaluated, monitored, or treated as if it exists) are acceptable and can be restated in the discharge summary if not ruled out. MTDD
== END 2017-06-28 14:12 | disposition hospice, home (50) | DRG 364 ==
LOC: N.ED 07:29 → N.EDINP 09:22 → SUATTDRO 09:22 → N.ICU 09:52 → N.2E 06-25 14:49
PROVIDERS: ADMIT Internal Medicine; ATTEND Internal Medicine

== ENCOUNTER 2017-12-03 08:01 | Inpatient (IN) ==
[2017-12-03] MEDS ORDERED: SODIUM CHLORIDE 0.9% 1,000 ML IV SCH (09:00)
[2017-12-03 09:23] LABS: Basophils # 0.1 10*3/uL (0.0-0.2); Basophils % 0.5 % (0.0-0.8); Eosinophils # 0.5 10*3/uL (0.0-0.87); Eosinophils % 3.9 % (0.00-10.9); Hematocrit 22.4 VOL% (35.7-47.0); Immature Granulocytes % 0.6 %; Immature Granulocytes Absolute 0.08 #; Lymphocytes # 2.6 10*3/uL (1.4-4.0); Mean Corpuscular HGB Conc 28.1 GM/DL (32-36); Mean Corpuscular Hemoglobin 25 PG (27-34); Mean Corpuscular Volume 90.3 FL (87-102); Mean Platelet Volume 9.8 FL (9.6-12.0); Monocytes # 1.4 10*3/uL (0.11-0.8); Monocytes % 10.9 % (1.7-12.7); NRBC # 0.05 10*3/uL; Neutrophils # 8.3 10*3/uL (1.4-7.4); Neutrophils % 64.1 % (38.7-73.9); Platelet Count 618 T/CUMM (130-400); Red Blood Count 2.48 MC/CUMM (3.8-5.5); Red Cell Distribution Width 18.7 % (9.3-17.3)
[2017-12-03 09:28] LABS: Hemoglobin 6.3 GM/DL (12.0-16.0)
[2017-12-03 09:32] LABS: PT Patient Result 10.7 SECS; Partial Thromboplastin Time 32.6 SECS (0-40)
[2017-12-03 09:49] LABS: Alanine Aminotransferase 15 U/L (13-56); Albumin 2.6 G/DL (3.4-5.0); Alkaline Phosphatase 130 U/L (45-117); Aspartate Amino Transferase 22 U/L (0-37); Bilirubin,Total < 0.39 MG/DL (0.2-1.0); Blood Urea Nitrogen 52 MG/DL (7-18); Calcium 10.2 MG/DL (8.5-10.1); Glucose 173 MG/DL (74-106); Osmolality,Calculated 292.7 MOS/KG (273-304); Sodium 138 MMOL/L (136-145); Total Protein 8.2 G/DL (6.4-8.3)
[2017-12-03 10:07] LABS: Giant Platelets Few; Hypochromasia 1+; Microcytosis Slight; Platelet Estimate Increased
[2017-12-03 10:08] LABS: Anisocytosis Slight
[2017-12-03] MEDS ORDERED: SODIUM CHLORIDE 0.9% 1,000 ML IV PRN (14:30)
[2017-12-03] MEDS ORDERED: ACETAMINOPHEN 325 MG TABLET PEG PRN (14:32)
[2017-12-03 16:01] LABS: % Iron Saturation 11.5 % (18-50); Ferritin 197.8 ng/ml (8-252)
[2017-12-03] MEDS: FERROUS SULFATE 300 MG/5 ML UDCUP PEG SCH ×2 (17:19→20:59)
[2017-12-03] MEDS: DEXTROSE 5% NACL 0.45% 1,000 ML IV SCH ×2 (17:19→23:46)
[2017-12-03] MEDS: METOPROLOL TARTRATE 25 MG TABLET PEG SCH (20:57)
[2017-12-03] MEDS: ASCORBIC ACID 500 MG TABLET PEG SCH (20:59)
[2017-12-03] MEDS ORDERED: NON-FORMULARY MEDICATION (Pantoprazole Sodium [Protonix] 40 MG) PEG SCH (21:00)
[2017-12-03] MEDS ORDERED: INSULIN GLARGINE 100 UNIT/ML SUBCUT SCH (21:00)
[2017-12-03] MEDS: PANTOPRAZOLE 40 MG VIAL IV SCH (21:00)
[2017-12-03] MEDS: levETIRAcetam LIQUID 100 MG/ML 30 ML/BOTTLE PO SCH (22:25)
[2017-12-04 06:49] LABS: PT Patient Result 10.7 SECS
[2017-12-04 07:12] LABS: Basophils # 0.1 10*3/uL (0.0-0.2); Basophils % 0.9 % (0.0-0.8); Eosinophils # 0.3 10*3/uL (0.0-0.87); Eosinophils % 2.8 % (0.00-10.9); Hematocrit 27.4 VOL% (35.7-47.0); Immature Granulocytes % 0.6 %; Immature Granulocytes Absolute 0.07 #; Lymphocytes # 1.9 10*3/uL (1.4-4.0); Lymphocytes % 16.2 % (21.3-54.2); Mean Corpuscular HGB Conc 29.2 GM/DL (32-36); Mean Corpuscular Hemoglobin 26 PG (27-34); Mean Corpuscular Volume 90.1 FL (87-102); Mean Platelet Volume 10.8 FL (9.6-12.0); Monocytes # 1.4 10*3/uL (0.11-0.8); Monocytes % 11.7 % (1.7-12.7); Neutrophils # 8.2 10*3/uL (1.4-7.4); Neutrophils % 67.8 % (38.7-73.9); Platelet Count 503 T/CUMM (130-400); Red Blood Count 3.04 MC/CUMM (3.8-5.5); Red Cell Distribution Width 18.6 % (9.3-17.3)
[2017-12-04 07:21] LABS: Giant Platelets Few; Hypochromasia 1+; Microcytosis Slight; Platelet Estimate Increased
[2017-12-04] MEDS ORDERED: DEXTROSE 50% 25 GM/50 ML VIAL IV PRN (08:27)
[2017-12-04] MEDS ORDERED: GLUCAGON 1 MG VIAL IM PRN (08:27)
[2017-12-04] MEDS: METOPROLOL TARTRATE 25 MG TABLET PEG SCH (08:35)
[2017-12-04] MEDS: levETIRAcetam LIQUID 100 MG/ML 30 ML/BOTTLE PO SCH (09:00)
[2017-12-04] MEDS ORDERED: CHLORHEXIDINE 4% SOLN 118 ML BOTTLE TOP SCH (09:00)
[2017-12-04] MEDS: ASCORBIC ACID 500 MG TABLET PEG SCH (09:00)
[2017-12-04] MEDS: FERROUS SULFATE 300 MG/5 ML UDCUP PEG SCH ×2 (09:00→14:49)
[2017-12-04] MEDS ORDERED: SODIUM HYPOCHLORITE 0.25% IRRIG 473 ML BOTTLE TOP SCH (09:00)
[2017-12-04] MEDS: PANTOPRAZOLE 40 MG VIAL IV SCH (09:00)
[2017-12-04] MEDS ORDERED: amLODIPine 5 MG TABLET PEG SCH (09:00)
[2017-12-04] MEDS: DEXTROSE 5% NACL 0.45% 1,000 ML IV SCH (12:08)
[2017-12-04 12:49] VITALS: BP 117/76
[2017-12-04] MEDS ORDERED: SKIN HEALING OINT (AQUAPHOR) 50 GM TUBE TOP PRN (15:49)
[2017-12-06] MEDS ORDERED: SCOPOLAMINE 1.5 MG PATCH TRANSDERM SCH (09:00)
== END 2017-12-04 17:26 | DRG 663 ==
LOC: EDUNIT# → EDBD → N.ED 08:01 → N.EDINP 12:46 → N.5E 15:34

== ENCOUNTER 2018-05-09 08:35 | Inpatient (IN) ==
[2018-05-09] MEDS ORDERED: ALBUTEROL/IPRATROPIUM 3 ML NEB RESP TX STA (09:40)
[2018-05-09] MEDS ORDERED: SODIUM CHLORIDE 0.9% 1,000 ML IV STA (09:45)
[2018-05-09 09:55] LABS: Basophils # 0.1 10*3/uL (0.0-0.2); Basophils % 0.6 % (0.0-0.8); Eosinophils # 0.1 10*3/uL (0.0-0.87); Eosinophils % 1.4 % (0.00-10.9); Hematocrit 35.1 VOL% (35.7-47.0); Hemoglobin 10.6 GM/DL (12.0-16.0); Immature Granulocytes % 0.6 %; Immature Granulocytes Absolute 0.06 #; Lymphocytes # 1.1 10*3/uL (1.4-4.0); Lymphocytes % 11.6 % (21.3-54.2); Mean Corpuscular HGB Conc 30.2 GM/DL (32-36); Mean Corpuscular Hemoglobin 26 PG (27-34); Mean Corpuscular Volume 84.6 FL (87-102); Mean Platelet Volume 10.8 FL (9.6-12.0); Monocytes # 0.6 10*3/uL (0.11-0.8); Monocytes % 6.3 % (1.7-12.7); Neutrophils # 7.6 10*3/uL (1.4-7.4); Neutrophils % 79.5 % (38.7-73.9); Platelet Count 538 T/CUMM (130-400); Red Blood Count 4.15 MC/CUMM (3.8-5.5); Red Cell Distribution Width 20.3 % (9.3-17.3); White Blood Count 9.6 T/CUMM (4-12)
[2018-05-09 10:28] LABS: Alanine Aminotransferase 35 U/L (13-56); Albumin 3.1 G/DL (3.4-5.0); Alkaline Phosphatase 188 U/L (45-117); Aspartate Amino Transferase 42 U/L (0-37); Bilirubin,Total < 0.39 MG/DL (0.2-1.0); Blood Urea Nitrogen 50 MG/DL (7-18); Calcium 9.4 MG/DL (8.5-10.1); Glucose 176 MG/DL (74-106); Osmolality,Calculated 293.5 MOS/KG (273-304); Potassium 4.9 MMOL/L (3.5-5.1); Sodium 139 MMOL/L (136-145); Total Protein 8.2 G/DL (6.4-8.3)
[2018-05-09 10:30] LABS: CKMB % 5.4 %; Troponin I Only 0.016 NG/ML (0.00-0.045)
[2018-05-09 10:33] LABS: Lactic Acid 1.2 MMOL/L (0.4-2.0)
[2018-05-09] MEDS ORDERED: ONDANSETRON 4 MG/2 ML VIAL IV PRN (11:11)
[2018-05-09] MEDS ORDERED: PROMETHAZINE 25 MG/1 ML VIAL IM PRN (11:11)
[2018-05-09] MEDS ORDERED: ACETAMINOPHEN 325 MG TABLET PO PRN (11:11)
[2018-05-09] MEDS ORDERED: guaiFENesin/DM ER 600-30 MG TABLET PO PRN (11:11)
[2018-05-09] MEDS ORDERED: ALBUTEROL 2.5 MG/3 ML NEB RESP TX PRN (11:14)
[2018-05-09 11:43] LABS: Thyroid Stimulating Hormone 1.6 uIU/ml (0.358-3.74)
[2018-05-09] MEDS ORDERED: GLUCAGON 1 MG VIAL IM PRN (11:47)
[2018-05-09] MEDS ORDERED: DEXTROSE 50% 25 GM/50 ML VIAL IV PRN (11:47)
[2018-05-09 13:42] LABS: Apearance,Urine CLEAR (Clear); Bilirubin,Urine Negative (Negative); Blood, Urine Negative (Negative); Glucose,Urine (UA) Negative (Negative); Hyaline Casts,Urine 1 /LPF (0-3); Ketones,Urine Negative (Negative); Nitrite,Urine Negative (Negative); Protein,Urine >=500 MG/DL; RBC,Urine 1 /HPF (0-4); Renal Epithelial Cells,Urine Occasional /HPF (<1); Squamous Epithelial Cell,Urine Occasional /HPF (0-10); Transitional Epi Cells,Urine Occasional /HPF (<1); Urine Color Yellow (Yellow); Urine Urobilinogen < 2.0 EU/DL (0.2-1.0); WBC,Urine 7 /HPF (0-6)
[2018-05-09] MEDS: ALBUTEROL/IPRATROPIUM 3 ML NEB RESP TX SCH ×2 (14:18→23:15)
[2018-05-09] MEDS: SODIUM CHLORIDE 0.9% 1,000 ML IV SCH (14:58)
[2018-05-09] MEDS: LEVOFLOXACIN INJ 750 MG in PREMIX 1 EACH IV SCH (14:58)
[2018-05-09 17:05] LABS: CKMB % 3.8 %; Troponin I Only 0.872 NG/ML (0.00-0.045)
[2018-05-09] MEDS: INSULIN REGULAR 100 UNIT/ML SUBCUT SCH ×2 (17:36→20:58)
[2018-05-09] MEDS: ENOXAPARIN 40 MG/0.4 ML SYRINGE SUBCUT SCH (20:49)
[2018-05-09] MEDS: guaiFENesin/DM ER 600-30 MG TABLET PO SCH (20:49)
[2018-05-09 22:04] LABS: CKMB % 3.5 %
[2018-05-09 22:05] LABS: Troponin I Only 0.649 NG/ML (0.00-0.045)
[2018-05-09] MEDS: DORNASE ALFA 2.5 MG/2.5 ML VIAL RESP TX SCH (23:15)
[2018-05-10] MEDS: ALBUTEROL/IPRATROPIUM 3 ML NEB RESP TX SCH ×4 (00:15→19:28)
[2018-05-10 05:59] LABS: Basophils % 0.4 % (0.0-0.8); Eosinophils # 0.3 10*3/uL (0.0-0.87); Eosinophils % 3.3 % (0.00-10.9); Hematocrit 31.7 VOL% (35.7-47.0); Hemoglobin 9.5 GM/DL (12.0-16.0); Immature Granulocytes % 0.2 %; Immature Granulocytes Absolute 0.02 #; Lymphocytes # 1.9 10*3/uL (1.4-4.0); Lymphocytes % 20.4 % (21.3-54.2); Mean Corpuscular Hemoglobin 25 PG (27-34); Mean Corpuscular Volume 84.5 FL (87-102); Mean Platelet Volume 11.5 FL (9.6-12.0); Monocytes # 0.9 10*3/uL (0.11-0.8); Neutrophils # 5.9 10*3/uL (1.4-7.4); Neutrophils % 65.7 % (38.7-73.9); Platelet Count 439 T/CUMM (130-400); Red Blood Count 3.75 MC/CUMM (3.8-5.5); Red Cell Distribution Width 20.4 % (9.3-17.3); White Blood Count 9.1 T/CUMM (4-12)
[2018-05-10 06:27] LABS: Albumin 2.7 G/DL (3.4-5.0); Bilirubin,Total 0.8 MG/DL (0.2-1.0); Calcium 9.8 MG/DL (8.5-10.1); Osmolality,Calculated 293.1 MOS/KG (273-304); Potassium 4.2 MMOL/L (3.5-5.1); Risk Ratio 3.98; Total Protein 8.4 G/DL (6.4-8.3); VLDL CHOLESTEROL 56.2 MG/DL
[2018-05-10] MEDS: DORNASE ALFA 2.5 MG/2.5 ML VIAL RESP TX SCH ×2 (06:50→19:28)
[2018-05-10] MEDS: guaiFENesin/DM ER 600-30 MG TABLET PO SCH ×2 (08:21→21:50)
[2018-05-10] MEDS: INSULIN REGULAR 100 UNIT/ML SUBCUT SCH ×4 (09:49→21:48)
[2018-05-10] MEDS: LEVOFLOXACIN INJ 750 MG in PREMIX 1 EACH IV SCH (13:28)
[2018-05-10] MEDS: FERROUS SULFATE 300 MG/5 ML UDCUP PEG SCH ×2 (16:28→21:49)
[2018-05-10] MEDS: SODIUM CHLORIDE 0.9% 1,000 ML IV SCH (18:45)
[2018-05-10] MEDS: THEOPHYLLINE 5.33 MG/ML 30 ML/BOTTLE PER TUBE SCH (21:46)
[2018-05-10] MEDS: levETIRAcetam LIQUID 100 MG/ML 30 ML/BOTTLE PEG SCH (21:49)
[2018-05-10] MEDS: METOPROLOL TARTRATE 25 MG TABLET PEG SCH (21:49)
[2018-05-10] MEDS: INSULIN GLARGINE 100 UNIT/ML SUBCUT SCH (21:49)
[2018-05-10] MEDS: ENOXAPARIN 40 MG/0.4 ML SYRINGE SUBCUT SCH (21:49)
[2018-05-11] MEDS: ALBUTEROL/IPRATROPIUM 3 ML NEB RESP TX SCH ×4 (00:16→19:31)
[2018-05-11 06:00] LABS: Prealbumin 15.4 MG/DL (20-40)
[2018-05-11] MEDS: DORNASE ALFA 2.5 MG/2.5 ML VIAL RESP TX SCH ×2 (07:55→19:38)
[2018-05-11] MEDS ORDERED: ERGOCALCIFEROL PEG SCH (09:00)
[2018-05-11] MEDS: INSULIN REGULAR 100 UNIT/ML SUBCUT SCH ×4 (09:50→21:28)
[2018-05-11] MEDS: METOPROLOL TARTRATE 25 MG TABLET PEG SCH ×2 (09:51→21:25)
[2018-05-11] MEDS: guaiFENesin/DM ER 600-30 MG TABLET PO SCH ×2 (09:51→21:25)
[2018-05-11] MEDS: LORATADINE 10 MG TABLET PEG SCH (09:52)
[2018-05-11] MEDS: CHOLECALCIFEROL 1,000 UNIT TABLET PEG SCH (09:52)
[2018-05-11] MEDS: LANSOPRAZOLE ODT 30 MG TABLET PEG SCH (09:52)
[2018-05-11] MEDS: amLODIPine 5 MG TABLET PEG SCH (09:52)
[2018-05-11] MEDS: MULTIVITAMIN (BEROCCA) TABLET PEG SCH (09:52)
[2018-05-11] MEDS: FERROUS SULFATE 300 MG/5 ML UDCUP PEG SCH ×3 (09:52→21:24)
[2018-05-11] MEDS: THEOPHYLLINE 5.33 MG/ML 30 ML/BOTTLE PER TUBE SCH ×2 (09:53→21:24)
[2018-05-11] MEDS: LEVOFLOXACIN INJ 750 MG in PREMIX 1 EACH IV SCH (09:53)
[2018-05-11] MEDS: levETIRAcetam LIQUID 100 MG/ML 30 ML/BOTTLE PEG SCH ×2 (09:53→21:24)
[2018-05-11] MEDS: ACETAMINOPHEN 325 MG TABLET PEG PRN (15:22)
[2018-05-11] MEDS ORDERED: TUBERCULIN SKIN TEST 0.1 ML SYRINGE INTRADERM ONE (17:30)
[2018-05-11] MEDS: ENOXAPARIN 40 MG/0.4 ML SYRINGE SUBCUT SCH (21:25)
[2018-05-11] MEDS: SODIUM CHLORIDE 0.9% 1,000 ML IV SCH (21:26)
[2018-05-12] MEDS: ALBUTEROL/IPRATROPIUM 3 ML NEB RESP TX SCH ×4 (00:14→20:16)
[2018-05-12 07:25] LABS: Basophils # 0.1 10*3/uL (0.0-0.2); Basophils % 0.7 % (0.0-0.8); Eosinophils # 0.4 10*3/uL (0.0-0.87); Eosinophils % 5.3 % (0.00-10.9); Hematocrit 27.6 VOL% (35.7-47.0); Hemoglobin 8.5 GM/DL (12.0-16.0); Immature Granulocytes % 0.4 %; Immature Granulocytes Absolute 0.03 #; Lymphocytes # 2.4 10*3/uL (1.4-4.0); Lymphocytes % 34.2 % (21.3-54.2); Mean Corpuscular HGB Conc 30.8 GM/DL (32-36); Mean Corpuscular Hemoglobin 26 PG (27-34); Mean Corpuscular Volume 83.9 FL (87-102); Mean Platelet Volume 11.8 FL (9.6-12.0); Monocytes % 14.1 % (1.7-12.7); Neutrophils # 3.2 10*3/uL (1.4-7.4); Neutrophils % 45.3 % (38.7-73.9); Platelet Count 299 T/CUMM (130-400); Red Blood Count 3.29 MC/CUMM (3.8-5.5); Red Cell Distribution Width 20.2 % (9.3-17.3)
[2018-05-12] MEDS: DORNASE ALFA 2.5 MG/2.5 ML VIAL RESP TX SCH ×2 (07:26→20:16)
[2018-05-12] MEDS: INSULIN GLARGINE 100 UNIT/ML SUBCUT SCH ×2 (07:36→21:10)
[2018-05-12] MEDS: INSULIN REGULAR 100 UNIT/ML SUBCUT SCH ×4 (07:36→21:10)
[2018-05-12 07:49] LABS: Hypochromasia 2+
[2018-05-12 07:56] LABS: Calcium 10.1 MG/DL (8.5-10.1); Osmolality,Calculated 294.8 MOS/KG (273-304); Potassium 3.8 MMOL/L (3.5-5.1)
[2018-05-12] MEDS: LORATADINE 10 MG TABLET PEG SCH (09:39)
[2018-05-12] MEDS: LANSOPRAZOLE ODT 30 MG TABLET PEG SCH (09:39)
[2018-05-12] MEDS: guaiFENesin/DM ER 600-30 MG TABLET PO SCH ×2 (09:39→20:29)
[2018-05-12] MEDS: MULTIVITAMIN (BEROCCA) TABLET PEG SCH (09:39)
[2018-05-12] MEDS: ASCORBIC ACID 500 MG TABLET PEG SCH (09:40)
[2018-05-12] MEDS: CHOLECALCIFEROL 1,000 UNIT TABLET PEG SCH (09:40)
[2018-05-12] MEDS: FERROUS SULFATE 300 MG/5 ML UDCUP PEG SCH ×3 (09:40→20:29)
[2018-05-12] MEDS: METOPROLOL TARTRATE 25 MG TABLET PEG SCH ×2 (09:40→20:29)
[2018-05-12] MEDS: amLODIPine 5 MG TABLET PEG SCH (09:40)
[2018-05-12] MEDS: LEVOFLOXACIN INJ 750 MG in PREMIX 1 EACH IV SCH (09:42)
[2018-05-12] MEDS: levETIRAcetam LIQUID 100 MG/ML 30 ML/BOTTLE PEG SCH ×2 (09:49→20:29)
[2018-05-12] MEDS: THEOPHYLLINE 5.33 MG/ML 30 ML/BOTTLE PER TUBE SCH ×2 (14:07→20:29)
[2018-05-12] MEDS: SKIN HEALING OINT (AQUAPHOR) 50 GM TUBE TOP SCH (14:08)
[2018-05-12] MEDS: SODIUM HYPOCHLORITE 0.25% IRRIG 473 ML BOTTLE TOP SCH (14:09)
[2018-05-12] MEDS: BACITRACIN OINT 0.9 GM PACK TOP SCH (14:09)
[2018-05-12] MEDS ORDERED: MEROPENEM 1,000 MG in SYRINGE 1 EACH IV SCH (18:00)
[2018-05-12] MEDS: ENOXAPARIN 40 MG/0.4 ML SYRINGE SUBCUT SCH (20:29)
[2018-05-12] MEDS: TOBRAMYCIN IV SCH (20:30)
[2018-05-12] MEDS: SODIUM CHLORIDE 0.9% IV SCH (20:30)
[2018-05-12] MEDS: MEROPENEM 1,000 MG in SYRINGE 1 EACH IV SCH (21:30)
[2018-05-13] MEDS: ALBUTEROL/IPRATROPIUM 3 ML NEB RESP TX SCH ×4 (01:03→19:04)
[2018-05-13] MEDS: SODIUM CHLORIDE 0.9% 1,000 ML IV SCH ×2 (03:00→22:37)
[2018-05-13] MEDS: MEROPENEM 1,000 MG in SYRINGE 1 EACH IV SCH ×3 (06:25→20:26)
[2018-05-13] MEDS: DORNASE ALFA 2.5 MG/2.5 ML VIAL RESP TX SCH ×2 (07:55→19:04)
[2018-05-13] MEDS: INSULIN REGULAR 100 UNIT/ML SUBCUT SCH ×4 (08:07→22:42)
[2018-05-13] MEDS: LORATADINE 10 MG TABLET PEG SCH (08:07)
[2018-05-13] MEDS: MULTIVITAMIN (BEROCCA) TABLET PEG SCH (08:07)
[2018-05-13] MEDS: FERROUS SULFATE 300 MG/5 ML UDCUP PEG SCH ×3 (08:08→22:41)
[2018-05-13] MEDS: levETIRAcetam LIQUID 100 MG/ML 30 ML/BOTTLE PEG SCH ×2 (08:08→23:13)
[2018-05-13] MEDS: THEOPHYLLINE 5.33 MG/ML 30 ML/BOTTLE PER TUBE SCH ×2 (08:08→22:41)
[2018-05-13] MEDS: LANSOPRAZOLE ODT 30 MG TABLET PEG SCH (08:08)
[2018-05-13] MEDS: CHOLECALCIFEROL 1,000 UNIT TABLET PEG SCH (08:08)
[2018-05-13] MEDS: guaiFENesin/DM ER 600-30 MG TABLET PO SCH ×2 (08:08→22:41)
[2018-05-13] MEDS: amLODIPine 5 MG TABLET PEG SCH (08:08)
[2018-05-13] MEDS: METOPROLOL TARTRATE 25 MG TABLET PEG SCH ×2 (08:08→22:41)
[2018-05-13] MEDS: BACITRACIN OINT 0.9 GM PACK TOP SCH (09:11)
[2018-05-13] MEDS: SODIUM HYPOCHLORITE 0.25% IRRIG 473 ML BOTTLE TOP SCH (09:11)
[2018-05-13] MEDS: SKIN HEALING OINT (AQUAPHOR) 50 GM TUBE TOP SCH (09:11)
[2018-05-13] MEDS: ACETAMINOPHEN 325 MG TABLET PEG PRN (16:33)
[2018-05-13] MEDS: INSULIN GLARGINE 100 UNIT/ML SUBCUT SCH (22:42)
[2018-05-13] MEDS: ENOXAPARIN 40 MG/0.4 ML SYRINGE SUBCUT SCH (23:13)
[2018-05-14] MEDS: TOBRAMYCIN IV SCH (00:47)
[2018-05-14] MEDS: SODIUM CHLORIDE 0.9% IV SCH (00:47)
[2018-05-14] MEDS: ALBUTEROL/IPRATROPIUM 3 ML NEB RESP TX SCH ×4 (00:55→18:53)
[2018-05-14] MEDS: MEROPENEM 1,000 MG in SYRINGE 1 EACH IV SCH ×2 (04:08→14:50)
[2018-05-14 05:50] LABS: Basophils % 0.5 % (0.0-0.8); Eosinophils # 0.5 10*3/uL (0.0-0.87); Eosinophils % 7.9 % (0.00-10.9); Hematocrit 27.1 VOL% (35.7-47.0); Hemoglobin 8.4 GM/DL (12.0-16.0); Immature Granulocytes % 0.3 %; Immature Granulocytes Absolute 0.02 #; Lymphocytes # 1.8 10*3/uL (1.4-4.0); Lymphocytes % 30.5 % (21.3-54.2); Mean Corpuscular Hemoglobin 26 PG (27-34); Mean Corpuscular Volume 82.6 FL (87-102); Mean Platelet Volume 11.1 FL (9.6-12.0); Monocytes # 0.8 10*3/uL (0.11-0.8); Monocytes % 12.9 % (1.7-12.7); Neutrophils # 2.9 10*3/uL (1.4-7.4); Neutrophils % 47.9 % (38.7-73.9); Platelet Count 361 T/CUMM (130-400); Red Blood Count 3.28 MC/CUMM (3.8-5.5); Red Cell Distribution Width 19.6 % (9.3-17.3)
[2018-05-14 06:21] LABS: Calcium 9.6 MG/DL (8.5-10.1); Osmolality,Calculated 293.7 MOS/KG (273-304); Potassium 4.1 MMOL/L (3.5-5.1); Prealbumin 13.8 MG/DL (20-40)
[2018-05-14] MEDS: DORNASE ALFA 2.5 MG/2.5 ML VIAL RESP TX SCH ×2 (07:01→18:55)
[2018-05-14] MEDS: INSULIN REGULAR 100 UNIT/ML SUBCUT SCH ×4 (08:08→21:38)
[2018-05-14] MEDS: FERROUS SULFATE 300 MG/5 ML UDCUP PEG SCH ×3 (09:44→21:37)
[2018-05-14] MEDS: SKIN HEALING OINT (AQUAPHOR) 50 GM TUBE TOP SCH (09:44)
[2018-05-14] MEDS: guaiFENesin/DM ER 600-30 MG TABLET PO SCH ×2 (09:46→21:37)
[2018-05-14] MEDS: METOPROLOL TARTRATE 25 MG TABLET PEG SCH ×2 (09:46→21:37)
[2018-05-14] MEDS: LANSOPRAZOLE ODT 30 MG TABLET PEG SCH (09:46)
[2018-05-14] MEDS: amLODIPine 5 MG TABLET PEG SCH (09:46)
[2018-05-14] MEDS: LORATADINE 10 MG TABLET PEG SCH (09:46)
[2018-05-14] MEDS: BACITRACIN OINT 0.9 GM PACK TOP SCH (09:46)
[2018-05-14] MEDS: CHOLECALCIFEROL 1,000 UNIT TABLET PEG SCH (09:46)
[2018-05-14] MEDS: MULTIVITAMIN (BEROCCA) TABLET PEG SCH (09:46)
[2018-05-14] MEDS: THEOPHYLLINE 5.33 MG/ML 30 ML/BOTTLE PER TUBE SCH ×2 (09:47→21:40)
[2018-05-14] MEDS: SODIUM HYPOCHLORITE 0.25% IRRIG 473 ML BOTTLE TOP SCH (09:47)
[2018-05-14] MEDS: levETIRAcetam LIQUID 100 MG/ML 30 ML/BOTTLE PEG SCH ×2 (09:47→21:40)
[2018-05-14] MEDS: ASCORBIC ACID 500 MG TABLET PEG SCH (09:47)
[2018-05-14] MEDS ORDERED: TOBRAMYCIN IV SCH (21:00)
[2018-05-14] MEDS ORDERED: SODIUM CHLORIDE 0.9% IV SCH (21:00)
[2018-05-14] MEDS: INSULIN GLARGINE 100 UNIT/ML SUBCUT SCH (21:37)
[2018-05-14] MEDS: ENOXAPARIN 40 MG/0.4 ML SYRINGE SUBCUT SCH (21:37)
[2018-05-15] MEDS: ALBUTEROL/IPRATROPIUM 3 ML NEB RESP TX SCH ×4 (00:51→19:33)
[2018-05-15 05:47] LABS: Basophils % 0.6 % (0.0-0.8); Eosinophils # 0.5 10*3/uL (0.0-0.87); Hemoglobin 8.2 GM/DL (12.0-16.0); Immature Granulocytes % 0.3 %; Immature Granulocytes Absolute 0.02 #; Lymphocytes % 30.5 % (21.3-54.2); Mean Corpuscular HGB Conc 30.4 GM/DL (32-36); Mean Corpuscular Hemoglobin 26 PG (27-34); Mean Corpuscular Volume 85.7 FL (87-102); Mean Platelet Volume 11.1 FL (9.6-12.0); Monocytes # 0.7 10*3/uL (0.11-0.8); Monocytes % 10.8 % (1.7-12.7); Neutrophils # 3.2 10*3/uL (1.4-7.4); Neutrophils % 49.8 % (38.7-73.9); Platelet Count 356 T/CUMM (130-400); Red Blood Count 3.15 MC/CUMM (3.8-5.5); Red Cell Distribution Width 19.5 % (9.3-17.3); White Blood Count 6.5 T/CUMM (4-12)
[2018-05-15 06:10] LABS: Calcium 9.2 MG/DL (8.5-10.1); Osmolality,Calculated 293.8 MOS/KG (273-304)
[2018-05-15] MEDS: SODIUM CHLORIDE 0.9% 1,000 ML IV SCH ×2 (06:20→06:42)
[2018-05-15] MEDS: DORNASE ALFA 2.5 MG/2.5 ML VIAL RESP TX SCH ×2 (07:43→19:37)
[2018-05-15] MEDS: INSULIN REGULAR 100 UNIT/ML SUBCUT SCH ×4 (08:04→21:28)
[2018-05-15] MEDS: METOPROLOL TARTRATE 25 MG TABLET PEG SCH ×2 (09:38→21:27)
[2018-05-15] MEDS: FERROUS SULFATE 300 MG/5 ML UDCUP PEG SCH ×3 (09:38→21:27)
[2018-05-15] MEDS: amLODIPine 5 MG TABLET PEG SCH (09:40)
[2018-05-15] MEDS: LANSOPRAZOLE ODT 30 MG TABLET PEG SCH (09:41)
[2018-05-15] MEDS: BACITRACIN OINT 0.9 GM PACK TOP SCH (09:41)
[2018-05-15] MEDS: levETIRAcetam LIQUID 100 MG/ML 30 ML/BOTTLE PEG SCH ×2 (09:42→21:26)
[2018-05-15] MEDS: SODIUM HYPOCHLORITE 0.25% IRRIG 473 ML BOTTLE TOP SCH (09:43)
[2018-05-15] MEDS: MULTIVITAMIN (BEROCCA) TABLET PEG SCH (09:43)
[2018-05-15] MEDS: SKIN HEALING OINT (AQUAPHOR) 50 GM TUBE TOP SCH (09:43)
[2018-05-15] MEDS: LORATADINE 10 MG TABLET PEG SCH (09:43)
[2018-05-15] MEDS: CHOLECALCIFEROL 1,000 UNIT TABLET PEG SCH (09:44)
[2018-05-15] MEDS: guaiFENesin/DM ER 600-30 MG TABLET PO SCH ×2 (09:44→21:27)
[2018-05-15] MEDS ORDERED: TOBRAMYCIN IV SCH (10:00)
[2018-05-15] MEDS ORDERED: SODIUM CHLORIDE 0.9% IV SCH (10:00)
[2018-05-15] MEDS: TOBRAMYCIN IV SCH (11:05)
[2018-05-15] MEDS: THEOPHYLLINE 5.33 MG/ML 30 ML/BOTTLE PER TUBE SCH ×2 (11:05→21:26)
[2018-05-15] MEDS: SODIUM CHLORIDE 0.9% IV SCH (11:05)
[2018-05-15] MEDS: ENOXAPARIN 40 MG/0.4 ML SYRINGE SUBCUT SCH (21:26)
[2018-05-15] MEDS: INSULIN GLARGINE 100 UNIT/ML SUBCUT SCH (21:28)
[2018-05-16 04:05] LABS: Basophils % 0.6 % (0.0-0.8); Eosinophils # 0.5 10*3/uL (0.0-0.87); Hematocrit 26.6 VOL% (35.7-47.0); Hemoglobin 7.8 GM/DL (12.0-16.0); Immature Granulocytes % 0.2 %; Immature Granulocytes Absolute 0.01 #; Lymphocytes # 2.1 10*3/uL (1.4-4.0); Lymphocytes % 32.6 % (21.3-54.2); Mean Corpuscular HGB Conc 29.3 GM/DL (32-36); Mean Corpuscular Hemoglobin 25 PG (27-34); Mean Corpuscular Volume 85.5 FL (87-102); Mean Platelet Volume 10.9 FL (9.6-12.0); Monocytes # 0.6 10*3/uL (0.11-0.8); Monocytes % 9.9 % (1.7-12.7); Neutrophils # 3.2 10*3/uL (1.4-7.4); Neutrophils % 48.7 % (38.7-73.9); Platelet Count 324 T/CUMM (130-400); Red Blood Count 3.11 MC/CUMM (3.8-5.5); Red Cell Distribution Width 19.6 % (9.3-17.3); White Blood Count 6.5 T/CUMM (4-12)
[2018-05-16 04:37] LABS: Calcium 9.4 MG/DL (8.5-10.1); Osmolality,Calculated 293.6 MOS/KG (273-304); Potassium 3.8 MMOL/L (3.5-5.1)
[2018-05-16] MEDS: SODIUM CHLORIDE 0.9% 1,000 ML IV SCH (05:12)
[2018-05-16] MEDS: ALBUTEROL/IPRATROPIUM 3 ML NEB RESP TX SCH ×4 (07:00→19:19)
[2018-05-16] MEDS: DORNASE ALFA 2.5 MG/2.5 ML VIAL RESP TX SCH ×2 (07:05→19:19)
[2018-05-16] MEDS: INSULIN REGULAR 100 UNIT/ML SUBCUT SCH ×4 (08:02→21:50)
[2018-05-16] MEDS: BACITRACIN OINT 0.9 GM PACK TOP SCH (10:36)
[2018-05-16] MEDS: levETIRAcetam LIQUID 100 MG/ML 30 ML/BOTTLE PEG SCH ×2 (10:37→20:42)
[2018-05-16] MEDS: THEOPHYLLINE 5.33 MG/ML 30 ML/BOTTLE PER TUBE SCH ×2 (10:37→20:42)
[2018-05-16] MEDS: FERROUS SULFATE 300 MG/5 ML UDCUP PEG SCH ×3 (10:40→20:42)
[2018-05-16] MEDS: LANSOPRAZOLE ODT 30 MG TABLET PEG SCH (10:41)
[2018-05-16] MEDS: CHOLECALCIFEROL 1,000 UNIT TABLET PEG SCH (10:41)
[2018-05-16] MEDS: MULTIVITAMIN (BEROCCA) TABLET PEG SCH (10:42)
[2018-05-16] MEDS: ASCORBIC ACID 500 MG TABLET PEG SCH (10:42)
[2018-05-16] MEDS: LORATADINE 10 MG TABLET PEG SCH (10:42)
[2018-05-16] MEDS: METOPROLOL TARTRATE 25 MG TABLET PEG SCH ×2 (10:42→20:43)
[2018-05-16] MEDS: guaiFENesin/DM ER 600-30 MG TABLET PO SCH ×2 (10:42→20:42)
[2018-05-16] MEDS: amLODIPine 5 MG TABLET PEG SCH (10:42)
[2018-05-16] MEDS: SKIN HEALING OINT (AQUAPHOR) 50 GM TUBE TOP SCH (10:42)
[2018-05-16] MEDS: SODIUM HYPOCHLORITE 0.25% IRRIG 473 ML BOTTLE TOP SCH (10:42)
[2018-05-16] MEDS: TOBRAMYCIN IV SCH (11:35)
[2018-05-16] MEDS: SODIUM CHLORIDE 0.9% IV SCH (11:35)
[2018-05-16] MEDS: ENOXAPARIN 40 MG/0.4 ML SYRINGE SUBCUT SCH (20:42)
[2018-05-16] MEDS: INSULIN GLARGINE 100 UNIT/ML SUBCUT SCH (21:50)
[2018-05-17] MEDS: ALBUTEROL/IPRATROPIUM 3 ML NEB RESP TX SCH ×4 (00:30→20:36)
[2018-05-17] MEDS: SODIUM CHLORIDE 0.9% 1,000 ML IV SCH ×2 (01:30→22:00)
[2018-05-17 06:54] LABS: Calcium 9.5 MG/DL (8.5-10.1); Osmolality,Calculated 290.8 MOS/KG (273-304); Potassium 4.1 MMOL/L (3.5-5.1)
[2018-05-17] MEDS: DORNASE ALFA 2.5 MG/2.5 ML VIAL RESP TX SCH ×2 (07:18→20:36)
[2018-05-17] MEDS: INSULIN REGULAR 100 UNIT/ML SUBCUT SCH ×4 (08:10→21:03)
[2018-05-17] MEDS: CHOLECALCIFEROL 1,000 UNIT TABLET PEG SCH (09:58)
[2018-05-17] MEDS: METOPROLOL TARTRATE 25 MG TABLET PEG SCH ×2 (09:59→21:03)
[2018-05-17] MEDS: MULTIVITAMIN (BEROCCA) TABLET PEG SCH (09:59)
[2018-05-17] MEDS: LANSOPRAZOLE ODT 30 MG TABLET PEG SCH (09:59)
[2018-05-17] MEDS: LORATADINE 10 MG TABLET PEG SCH (09:59)
[2018-05-17] MEDS: amLODIPine 5 MG TABLET PEG SCH (09:59)
[2018-05-17] MEDS: FERROUS SULFATE 300 MG/5 ML UDCUP PEG SCH ×3 (09:59→21:02)
[2018-05-17] MEDS: guaiFENesin/DM ER 600-30 MG TABLET PO SCH ×2 (09:59→21:03)
[2018-05-17] MEDS: levETIRAcetam LIQUID 100 MG/ML 30 ML/BOTTLE PEG SCH ×2 (10:00→21:01)
[2018-05-17] MEDS: THEOPHYLLINE 5.33 MG/ML 30 ML/BOTTLE PER TUBE SCH ×2 (10:01→21:01)
[2018-05-17] MEDS: SKIN HEALING OINT (AQUAPHOR) 50 GM TUBE TOP SCH (10:30)
[2018-05-17] MEDS: SODIUM CHLORIDE 0.9% IV SCH (10:31)
[2018-05-17] MEDS: SODIUM HYPOCHLORITE 0.25% IRRIG 473 ML BOTTLE TOP SCH (10:31)
[2018-05-17] MEDS: TOBRAMYCIN IV SCH (10:31)
[2018-05-17] MEDS: BACITRACIN OINT 0.9 GM PACK TOP SCH (10:31)
[2018-05-17] MEDS: ENOXAPARIN 40 MG/0.4 ML SYRINGE SUBCUT SCH (21:02)
[2018-05-17] MEDS: INSULIN GLARGINE 100 UNIT/ML SUBCUT SCH (21:04)
[2018-05-18] MEDS: ALBUTEROL/IPRATROPIUM 3 ML NEB RESP TX SCH ×4 (01:02→19:17)
[2018-05-18 05:42] LABS: Basophils # 0.1 10*3/uL (0.0-0.2); Eosinophils # 0.5 10*3/uL (0.0-0.87); Eosinophils % 7.8 % (0.00-10.9); Hematocrit 26.2 VOL% (35.7-47.0); Immature Granulocytes % 0.2 %; Immature Granulocytes Absolute 0.01 #; Lymphocytes % 34.2 % (21.3-54.2); Mean Corpuscular HGB Conc 30.5 GM/DL (32-36); Mean Corpuscular Hemoglobin 25 PG (27-34); Mean Corpuscular Volume 82.4 FL (87-102); Mean Platelet Volume 11.5 FL (9.6-12.0); Monocytes # 0.6 10*3/uL (0.11-0.8); Monocytes % 9.9 % (1.7-12.7); Neutrophils # 2.8 10*3/uL (1.4-7.4); Neutrophils % 46.9 % (38.7-73.9); Platelet Count 285 T/CUMM (130-400); Red Blood Count 3.18 MC/CUMM (3.8-5.5); Red Cell Distribution Width 19.3 % (9.3-17.3); White Blood Count 5.9 T/CUMM (4-12)
[2018-05-18 06:02] LABS: Calcium 9.4 MG/DL (8.5-10.1); Osmolality,Calculated 284.3 MOS/KG (273-304); Potassium 3.9 MMOL/L (3.5-5.1)
[2018-05-18] MEDS: DORNASE ALFA 2.5 MG/2.5 ML VIAL RESP TX SCH ×2 (07:30→19:24)
[2018-05-18] MEDS ORDERED: PIPERACILLIN/TAZOBACTAM 3,375 MG in SODIUM CHLORIDE 0.9% 100 ML IV SCH (08:30)
[2018-05-18] MEDS: FERROUS SULFATE 300 MG/5 ML UDCUP PEG SCH ×3 (09:11→21:05)
[2018-05-18] MEDS: CHOLECALCIFEROL 1,000 UNIT TABLET PEG SCH (09:12)
[2018-05-18] MEDS: MULTIVITAMIN (BEROCCA) TABLET PEG SCH (09:12)
[2018-05-18] MEDS: guaiFENesin/DM ER 600-30 MG TABLET PO SCH ×2 (09:12→21:05)
[2018-05-18] MEDS: LORATADINE 10 MG TABLET PEG SCH (09:13)
[2018-05-18] MEDS: ASCORBIC ACID 500 MG TABLET PEG SCH (09:13)
[2018-05-18] MEDS: amLODIPine 5 MG TABLET PEG SCH (09:13)
[2018-05-18] MEDS: levETIRAcetam LIQUID 100 MG/ML 30 ML/BOTTLE PEG SCH ×2 (09:13→21:06)
[2018-05-18] MEDS: LANSOPRAZOLE ODT 30 MG TABLET PEG SCH (09:13)
[2018-05-18] MEDS: METOPROLOL TARTRATE 25 MG TABLET PEG SCH ×2 (09:13→21:05)
[2018-05-18] MEDS: THEOPHYLLINE 5.33 MG/ML 30 ML/BOTTLE PER TUBE SCH ×2 (09:14→21:06)
[2018-05-18] MEDS: INSULIN REGULAR 100 UNIT/ML SUBCUT SCH ×4 (09:21→21:06)
[2018-05-18] MEDS: BACITRACIN OINT 0.9 GM PACK TOP SCH (10:28)
[2018-05-18] MEDS: SKIN HEALING OINT (AQUAPHOR) 50 GM TUBE TOP SCH (10:28)
[2018-05-18] MEDS: SODIUM HYPOCHLORITE 0.25% IRRIG 473 ML BOTTLE TOP SCH (10:28)
[2018-05-18] MEDS: ENOXAPARIN 40 MG/0.4 ML SYRINGE SUBCUT SCH (21:04)
[2018-05-18] MEDS: INSULIN GLARGINE 100 UNIT/ML SUBCUT SCH (21:05)
[2018-05-18] MEDS: SODIUM CHLORIDE 0.9% 1,000 ML IV SCH (21:57)
[2018-05-19] MEDS: ALBUTEROL/IPRATROPIUM 3 ML NEB RESP TX SCH ×4 (00:36→19:49)
[2018-05-19] MEDS: DORNASE ALFA 2.5 MG/2.5 ML VIAL RESP TX SCH ×2 (07:11→19:49)
[2018-05-19] MEDS: INSULIN REGULAR 100 UNIT/ML SUBCUT SCH ×4 (08:31→22:28)
[2018-05-19] MEDS ORDERED: TOBRAMYCIN IV SCH (10:00)
[2018-05-19] MEDS ORDERED: SODIUM CHLORIDE 0.9% IV SCH (10:00)
[2018-05-19] MEDS: CHOLECALCIFEROL 1,000 UNIT TABLET PEG SCH (10:43)
[2018-05-19] MEDS: guaiFENesin/DM ER 600-30 MG TABLET PO SCH ×2 (10:43→22:26)
[2018-05-19] MEDS: MULTIVITAMIN (BEROCCA) TABLET PEG SCH (10:43)
[2018-05-19] MEDS: LORATADINE 10 MG TABLET PEG SCH (10:43)
[2018-05-19] MEDS: amLODIPine 5 MG TABLET PEG SCH (10:43)
[2018-05-19] MEDS: SKIN HEALING OINT (AQUAPHOR) 50 GM TUBE TOP SCH (10:44)
[2018-05-19] MEDS: METOPROLOL TARTRATE 25 MG TABLET PEG SCH ×2 (10:44→22:26)
[2018-05-19] MEDS: LANSOPRAZOLE ODT 30 MG TABLET PEG SCH (10:44)
[2018-05-19] MEDS: BACITRACIN OINT 0.9 GM PACK TOP SCH (10:45)
[2018-05-19] MEDS: FERROUS SULFATE 300 MG/5 ML UDCUP PEG SCH ×3 (10:45→22:26)
[2018-05-19] MEDS: SODIUM HYPOCHLORITE 0.25% IRRIG 473 ML BOTTLE TOP SCH (10:45)
[2018-05-19] MEDS: THEOPHYLLINE 5.33 MG/ML 30 ML/BOTTLE PER TUBE SCH ×2 (11:20→22:28)
[2018-05-19] MEDS: levETIRAcetam LIQUID 100 MG/ML 30 ML/BOTTLE PEG SCH ×2 (11:20→22:28)
[2018-05-19] MEDS: ENOXAPARIN 40 MG/0.4 ML SYRINGE SUBCUT SCH (22:27)
[2018-05-19] MEDS: INSULIN GLARGINE 100 UNIT/ML SUBCUT SCH (22:28)
[2018-05-19] MEDS: SODIUM CHLORIDE 0.9% 1,000 ML IV SCH (23:17)
[2018-05-20] MEDS: ALBUTEROL/IPRATROPIUM 3 ML NEB RESP TX SCH ×4 (00:51→19:21)
[2018-05-20] MEDS: DORNASE ALFA 2.5 MG/2.5 ML VIAL RESP TX SCH ×2 (07:22→19:21)
[2018-05-20] MEDS: amLODIPine 5 MG TABLET PEG SCH (09:04)
[2018-05-20] MEDS: MULTIVITAMIN (BEROCCA) TABLET PEG SCH (09:04)
[2018-05-20] MEDS: LORATADINE 10 MG TABLET PEG SCH (09:04)
[2018-05-20] MEDS: METOPROLOL TARTRATE 25 MG TABLET PEG SCH ×2 (09:04→22:29)
[2018-05-20] MEDS: LANSOPRAZOLE ODT 30 MG TABLET PEG SCH (09:04)
[2018-05-20] MEDS: ASCORBIC ACID 500 MG TABLET PEG SCH (09:04)
[2018-05-20] MEDS: guaiFENesin/DM ER 600-30 MG TABLET PO SCH ×2 (09:04→22:29)
[2018-05-20] MEDS: CHOLECALCIFEROL 1,000 UNIT TABLET PEG SCH (09:04)
[2018-05-20] MEDS: THEOPHYLLINE 5.33 MG/ML 30 ML/BOTTLE PER TUBE SCH ×2 (09:05→22:30)
[2018-05-20] MEDS: levETIRAcetam LIQUID 100 MG/ML 30 ML/BOTTLE PEG SCH ×2 (09:05→22:30)
[2018-05-20] MEDS: FERROUS SULFATE 300 MG/5 ML UDCUP PEG SCH ×3 (09:06→22:29)
[2018-05-20] MEDS: INSULIN REGULAR 100 UNIT/ML SUBCUT SCH ×3 (11:10→22:30)
[2018-05-20] MEDS: BACITRACIN OINT 0.9 GM PACK TOP SCH (17:24)
[2018-05-20] MEDS: SODIUM HYPOCHLORITE 0.25% IRRIG 473 ML BOTTLE TOP SCH (17:24)
[2018-05-20] MEDS: SKIN HEALING OINT (AQUAPHOR) 50 GM TUBE TOP SCH (17:24)
[2018-05-20] MEDS: SODIUM CHLORIDE 0.9% 1,000 ML IV SCH (21:52)
[2018-05-20] MEDS: ENOXAPARIN 40 MG/0.4 ML SYRINGE SUBCUT SCH (22:29)
[2018-05-20] MEDS: INSULIN GLARGINE 100 UNIT/ML SUBCUT SCH (22:46)
[2018-05-21] MEDS: ALBUTEROL/IPRATROPIUM 3 ML NEB RESP TX SCH ×3 (00:41→12:13)
[2018-05-21 05:45] LABS: Basophils # 0.1 10*3/uL (0.0-0.2); Basophils % 0.8 % (0.0-0.8); Eosinophils # 0.4 10*3/uL (0.0-0.87); Eosinophils % 6.6 % (0.00-10.9); Hematocrit 26.7 VOL% (35.7-47.0); Hemoglobin 8.3 GM/DL (12.0-16.0); Immature Granulocytes % 0.3 %; Immature Granulocytes Absolute 0.02 #; Lymphocytes # 1.7 10*3/uL (1.4-4.0); Lymphocytes % 26.4 % (21.3-54.2); Mean Corpuscular HGB Conc 31.1 GM/DL (32-36); Mean Corpuscular Hemoglobin 26 PG (27-34); Mean Corpuscular Volume 82.2 FL (87-102); Mean Platelet Volume 11.4 FL (9.6-12.0); Monocytes # 0.5 10*3/uL (0.11-0.8); Monocytes % 8.3 % (1.7-12.7); Neutrophils # 3.7 10*3/uL (1.4-7.4); Neutrophils % 57.6 % (38.7-73.9); Platelet Count 369 T/CUMM (130-400); Red Blood Count 3.25 MC/CUMM (3.8-5.5); Red Cell Distribution Width 19.7 % (9.3-17.3); White Blood Count 6.5 T/CUMM (4-12)
[2018-05-21 06:08] LABS: Osmolality,Calculated 284.1 MOS/KG (273-304); Prealbumin 22.5 MG/DL (20-40)
[2018-05-21] MEDS: DORNASE ALFA 2.5 MG/2.5 ML VIAL RESP TX SCH (07:25)
[2018-05-21] MEDS: guaiFENesin/DM ER 600-30 MG TABLET PO SCH (08:29)
[2018-05-21] MEDS: amLODIPine 5 MG TABLET PEG SCH (08:29)
[2018-05-21] MEDS: MULTIVITAMIN (BEROCCA) TABLET PEG SCH (08:29)
[2018-05-21] MEDS: CHOLECALCIFEROL 1,000 UNIT TABLET PEG SCH (08:29)
[2018-05-21] MEDS: LORATADINE 10 MG TABLET PEG SCH (08:29)
[2018-05-21] MEDS: METOPROLOL TARTRATE 25 MG TABLET PEG SCH (08:29)
[2018-05-21] MEDS: LANSOPRAZOLE ODT 30 MG TABLET PEG SCH (08:29)
[2018-05-21] MEDS: FERROUS SULFATE 300 MG/5 ML UDCUP PEG SCH (08:29)
[2018-05-21] MEDS: INSULIN REGULAR 100 UNIT/ML SUBCUT SCH ×2 (08:30→11:34)
[2018-05-21] MEDS: levETIRAcetam LIQUID 100 MG/ML 30 ML/BOTTLE PEG SCH (08:30)
[2018-05-21] MEDS: THEOPHYLLINE 5.33 MG/ML 30 ML/BOTTLE PER TUBE SCH (08:30)
[2018-05-21] MEDS: SKIN HEALING OINT (AQUAPHOR) 50 GM TUBE TOP SCH (10:45)
[2018-05-21] MEDS: BACITRACIN OINT 0.9 GM PACK TOP SCH (10:45)
[2018-05-21] MEDS: SODIUM HYPOCHLORITE 0.25% IRRIG 473 ML BOTTLE TOP SCH (10:45)
[2018-05-21 12:03] VITALS: BP 116/66
== END 2018-05-21 13:01 | DRG 137 ==
LOC: EDUNIT# → EDBD → N.ED 08:35 → SUATTDRO 11:10 → N.EDINP 11:10 → N.2E 12:07
PROVIDERS: ADMIT Internal Medicine Infectious Disease; ATTEND Internal Medicine